=== PATIENT | male | born 1945 | race Caucasian/White ===

== ENCOUNTER 2016-07-12 15:34 | Inpatient (IN) | payer MEDICARE ==
[~2016-07-12] VITALS: Ht 188 cm; Wt 122.6 kg
[2016-07-12] VITALS (7 sets, daily range): BP systolic 109–136; BP diastolic 53–82; PULSE 66–85; RESP 17–28; O2SAT 89–99
[~2016-07-12 15:34] MED LIST: ACET-171 PO; ALBU18HF INH; BECL8.7A6 IH; CHOL200047 PO; DOCU-41 PO; FUR20 PO; GABA-502 PO; HYDR-3939 PO; IPRA3AMP IH; ISOS30TA4 PO; LEVO5TAB13 PO; MAGN400C PO; MULT-666 PO; NITR0.4T6 SL; OXYC5CAP4 PO; POLY17PO6 PO; POTA20LI2 PO; SPIR25TA PO; TRAM50TA2 PO; TRAZ-118 PO
[2016-07-12 16:43] LABS: BASOPHILS % (AUTO) 0.2 % (0-3); MONOCYTES % (AUTO) 9.7 % (4-12); Mean Corpuscular Hemoglobin 28.8 pg (27.0-35.0); Mean Corpuscular Volume 93.7 fL (81-100); Platelet Count 195 bil/L (150-400)
[2016-07-12 17:12] LABS: TROPONIN T < 0.010 ug/L (0.0-0.011)
--- NOTE | 2016-07-12 17:45 | DRSVH ---
PROCEDURE: X-RAY CHEST ONE VIEW, PORTABLE ([id number]) INDICATIONS: dyspnea TECHNIQUE: One view of the chest was acquired. COMPARISON: [facility], CR, XR CHEST 2VW, 03/19/2016, 6:50. FINDINGS: Surgical changes and devices: Cardiac pacer Lungs and pleura: No pleural effusions or pneumothorax. Lungs are clear. Elevation of the right he midiaphragm. Diffuse interstitial disease Mediastinum: Mediastinal contours appear normal. Heart size is normal. Bones and chest wall: No suspicious bony lesions. Overlying soft tissues appear unremarkable. IMPRESSION: Diffuse scarring/interstitial disease. No acute disease Dictated by: Jason Ann M.D. on 07/12/2016 at 17:42 Approved by: Jason Ann M.D. on 07/12/2016 at 17:44
--- NOTE | 2016-07-12 17:51 | ED.REPORT ---
HPI-Dyspnea / Wheezing Date of Service Jul 12, 2016 ED Provider: Hussain Russell MD 71 year old male with a history of CAD, chronic diastolic heart failure, COPD, hyperlipidemia, and HTN presents to the ER complaining of 4-5 months of worsening shortness of breath and lower extremity swelling, severely worsening over the past week. Associated symptom of headache. Patient denies chest pain, cough, rhinorrhea, fever and chills. Typically the patient uses a CPAP at night , but he is not on home O2. He was discharged from the hospital here three months ago after being treated for his diastolic heart failure. Nursing Notes Stated Complaint: SOB Chief Complaint: Respiratory Distress Nursing Notes Reviewed: Yes Allergies: Coded Allergies: [place] Pepper (Verified Allergy, Severe, Anaphylaxis, 07/12/16) Patient reports severe allergy to peppers. Contrast Media (Verified Allergy, Severe, 07/12/16) Quinolones (Verified Allergy, Severe, 07/12/16) cefazolin (Verified Allergy, Severe, convulsions, cardiac, 07/12/16) hydrocodone bitartrate (Verified Allergy, Severe, rash, 07/12/16) levofloxacin (Verified Allergy, Severe, cardiac and convulsions, 07/12/16) niacin (Verified Allergy, Severe, convulsions, 07/12/16) nitrofurantoin (Verified Allergy, Severe, Rash,Itching,throat swelling, ) Penicillins (Verified Allergy, Unknown, 07/12/16) hydrocodone (Verified Allergy, Unknown, 07/12/16) egg (Verified Adverse Reaction, Intermediate, Nausea,Vomiting, 07/12/16) milk (Verified Adverse Reaction, Intermediate, Nausea,Vomiting,Diarrhea, ) Uncoded Allergies: eggs (Allergy, Mild, vomiting, 07/27/12) Patient reports past severe reaction to eggs. RUBBER (Allergy, Unknown, 01/07/15) rubber (Adverse Reaction, Mild, Rash,Itching,, 05/29/12) Scheduled Albuterol Sulfate (Ventolin HFA Inhaler) 200 Puff/18 Gm Inhaler 2 PUFFS INH TID Beclomethasone Dipropionate (Qvar) 8.7 Gm Aer.w.adap 1 PUFF IH BID 40mcg strength Cholecalciferol (Vitamin D3) (Vitamin D3) 2,000 Unit Capsule 2,000 UNIT PO DAILY Furosemide (Furosemide) 20 Mg Tab 60 MG PO TID Gabapentin (Gabapentin) 300 Mg Capsule 300 MG PO TID Hydralazine (Hydralazine) 25 Mg Tablet 25 MG PO TIDWM Isosorbide MN ER (Isosorbide MN ER) 30 Mg Tab.er.24h 30 MG PO DAILY Levocetirizine Dihydrochloride (Levocetirizine Dihydrochloride) 5 Mg Tablet 5 MG PO HS Magnesium Oxide (Magnesium) 400 Mg Capsule 400 MG PO DAILY Metoprolol Succinate ER (Metoprolol Succinate ER) 100 Mg Tab.er.24h 100 MG PO DAILY Multivit-Min/FA/Lycopen/Lutein (Centrum Silver Men Tablet) 300 Mcg-600 Mcg-300 Mcg Tablet 1 EACH PO DAILY Potassium Chloride ER (Potassium Chloride ER) 20 Meq Tablet.er 40 MEQ PO BIDWM TAKE WITH FOOD Spironolactone (Aldactone) 25 Mg Tablet 25 MG PO DAILY Trazodone (Trazodone) 100 Mg Tablet 100 MG PO HS Scheduled PRN Acetaminophen (Tylenol Arthritis) 650 Mg Tablet.er 650 MG PO Q6H PRN PRN arthritis Docusate Sodium (Colace) 100 Mg Capsule 200 MG PO DAILY PRN PRN For Constipation Nitroglycerin SL (Nitroglycerin SL) 0.4 Mg Tab.subl 0.4 MG SL Q5MIN PRN PRN For Chest Pain Polyethylene Glycol 3350 (Miralax) 17 Gm Powd.pack 17 GM PO DAILY PRN PRN For Constipation Tramadol (Tramadol) 50 Mg Tablet 50 MG PO Q6H PRN PRN For Pain General Time Seen by MD: 17:49 Chief Complaint Shortness of breath Hx Obtained From: Patient Arrived By: Walk-in Sudden in Onset?: No Onset Occurred: 1 week ago Symptom Duration: Since onset Associated with: Reports: Leg swelling, Denies: Chest pain, Cough, Fever Context Related History: Reports: COPD, Congestive heart failure, Coronary artery disease Similar Sx Previous: Yes Past Medical History Past Medical History Notes: PCP: Dr. Nicole Certified Dialysis Technician: Dr. Sheffield, [facility] Past Medical History R fibular/posterior malleolar fracture - 12/2014, not healing well per patient, followed by Dr. Shearer H/o chainsaw injury to knee PAST MEDICAL HISTORY per old records 1. Coronary artery disease, status post myocardial infarction in 1984. 2. Chronic diastolic heart failure. 3. Atrial fibrillation, on chronic anticoagulation. 4. Hyperlipidemia. 5. Hypertension. 6. COPD. 7. 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 8. History of acute promyelocytic leukemia, in complete remission. 9. History of melanoma with removal on his right face. 10. 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 Scottie Dudley at [facility], and undergoing adjuvant radiation therapy with Dr. Yoni Butterfield. 11. Chronic hypokalemia, for which he is on spironolactone. 12. History of stroke. The patient reports some residual mainly right-sided weakness in the right upper extremity more than the right lower extremity, with residual right facial numbness and mild droop. 13. Chronic back pain with left sciatica. 14. History of diverticulitis requiring colectomy. 15. History of urinary retention. 16. History of previous esophageal stricture. Past Surgical History 1. Back surgery. 2. Right shoulder surgery. 3. Right knee surgery (details unclear - no hardware on plain films 04/10/15) 4. Multiple skin excisions from malignant melanoma on the right side of his face. 5. Cholecystectomy. 6. 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 7. Also, partial colectomy due to acute diverticulitis in the past. Family History Noncontributory per old records Smoking History Former Smoker Social History Alcohol Use: Denies alcohol use Drug Use: Denies drug use Other Social History: Local resident Ambulatory Status Independent Review of Systems Constitutional: Denies: Chills, Fever Ears / Nose / Throat: Denies: Nasal congestion Respiratory: Reports: Dyspnea on exertion, Shortness of breath, Denies: Non-productive cough Cardiovascular: Denies: Chest pain Musculoskeletal: Reports: Extremity swelling (Lower, bilateral), Denies: Back pain, Extremity pain, Neck pain Complete sys rev & neg: except as marked. Physical Exam Initial Vital Signs Vital Signs (First) Date Time Temp Pulse Resp B/P Pulse Ox O2 Delivery O2 Flow Rate FiO2 07/12/16 15:42 35.9 79 28 112/69 94 Nasal Cannula 2 Initial VS: Reviewed Head / Eyes: Atraumatic, Normocephalic Abdomen / GI: Soft, Non-tender, No guarding, No rebound, No distention Skin: Warm, Dry, No cyanosis Neurologic: Alert, Oriented, Nonfocal General/Constitutional: Awake, Alert, Well developed, Well nourished Neck: Atraumatic, Supple, Full range of motion, No swelling, Non-tender, No masses Respiratory / Chest: No chest tenderness, No chest wall deformity Bilateral crackles at the bases. Cardiovascular: Heart rate NL, Regular rhythm, Heart sounds NL, No murmurs Lower Ext Edema: Positive: Bilateral 2+ Interpretation & Diagnostics Lab Results Interpretation Result Diagram: 07/12/16 1630 07/12/16 1630 Test 07/12/16 16:30 07/12/16 17:46 White Blood Count 8.8th/mm3 (3.8-10.1) Red Blood Count 4.79mil/mm3 (4.40-5.80) Hemoglobin 13.8g/dL (13.8-17.2) Hematocrit 44.9% (41.0-50.0) Mean Corpuscular Volume 93.7fL (81-100) Mean Corpuscular Hemoglobin 28.8pg (27.0-35.0) Mean Corpuscular Hemoglobin Concent 30.7% (32.0-37.0) Red Cell Distribution Width 15.0% (12.3-15.4) Platelet Count 195bil/L (150-400) Neutrophils (%) (Auto) 77.0% (40-74) Lymphocytes (%) (Auto) 11.8% (14-46) Monocytes (%) (Auto) 9.7% (4-12) Eosinophils (%) (Auto) 1.0% (0-5) Basophils (%) (Auto) 0.2% (0-3) Prothrombin Time 10.8sec (8.1-12.5) Prothromb Time International Ratio 1.01ratio Sodium Level 138mEq/L (134-144) Potassium Level 5.4mEq/L (3.5-5.2) Chloride Level 98mEq/L (97-108) Carbon Dioxide Level 30mmol/L (18-29) Blood Urea Nitrogen 23mg/dL (8-27) Creatinine 1.22mg/dL (0.76-1.27) Estimat Glomerular Filtration Rate 62mL/min (>59) Glucose Level 109mg/dL (60-99) Calcium Level 8.8mg/dL (8.5-10.1) Total Bilirubin 0.6mg/dL (0.0-1.2) Aspartate Amino Transf (AST/SGOT) 23U/L (0-50) Alanine Aminotransferase (ALT/SGPT) 36U/L (0-44) Alkaline Phosphatase 58U/L (25-160) Troponin T < 0.010ug/L (0.0-0.011) Pro-B-Type Natriuretic Peptide 2888pg/mL (0-376) Total Protein 6.6g/dL (6.4-8.4) Albumin 4.1g/dL (3.4-5.0) Hold Krueger Top Tube Received (Received) Urine Color Yellow (YELLOW) Urine Appearance Hazy (CLEAR,HAZY) Urine pH 6.5 (5.0-8.0) Urine Specific [place] 1.010 (1.003-1.035) Urine Protein Negativemg/dL (NEG,TRACE) Urine Glucose (UA) Negativemg/dL (NEGATIVE) Urine Ketones Negativemg/dL (NEGATIVE) Urine Occult Blood Negative (NEGATIVE) Urine Nitrite Negative (NEGATIVE) Urine Bilirubin Negative (NEGATIVE) Urine Urobilinogen Normalmg/dL (NORMAL) Urine Leukocyte Esterase Negative (NEGATIVE) Urine RBC 0-2/hpf (0-2) Urine WBC 0-5/hpf (0-5) Urine Epithelial Cells None/hpf (NONE-MOD) Urine Crystals None seen (NONE SEEN) Urine Bacteria None/hpf (NONE-FEW) Urine Hyaline Casts None/lpf (NONE) Urine Granular Casts None seen (NONE SEEN) Urine Waxy Casts None seen (NONE SEEN) Urine Red Blood Cell Casts None seen (NONE SEEN) Urine White Blood Cell Casts None seen (NONE SEEN) Urine Mucus None seen (None Seen) Urine Trichomonas None seen (NONE SEEN) Urine Yeast None (NONE SEEN) Urinalysis Comment None Urine Culture Reflexed Not indicated ECG Interpretation ECG Interpretation: Atrial fibrillation, rate 64 T wave inversions in v2-v6, 2 and 3 No prior ECG available Time: 17:46 Interpreted by: ED physician X-Ray Chest Interpretation Chest Xray Interpretation: IMPRESSION: Diffuse scarring/interstitial disease. No acute disease Dictated by: Jason Ann M.D. on 07/12/2016 at 17:42 Approved by: Jason Ann M.D. on 07/12/2016 at 17:44 View: Portable, 1 view Interpretation / Wet Read by: Interpret - Radiologist Re-Eval/Medical Decision Med Decision/Clinical Course 71-year-old male history of diastolic heart failure, CAD, COPD, hypertension presenting with worsening shortness of breath over 4-5 months. He had his Lasix decreased one week ago and with acute worsening shortness of breath last week. He is not normally on oxygen. He is requiring 2 L oxygen here and satting low 90s. Patient requiring oxygen and will be admitted for IV diuresis. Given IV Lasix 60 mg. Admitted to hospitalist service for acute CHF exacerbation. Source of Hx: Old records Re-Evaluation/Progress : Time of Eval: 18:53 Re-Evaluation/Progress Note: Discussed lab and radiology results and need for admission. Patient is amenable to the plan. All other questions addressed. Consultation : Referral / Consult Name: Kd Ramirez MD Consulted With: Hospitalist Call Returned at: 19:08 Equipment Processer Storage: Agrees with eval, Agrees with plan, Accepts admit Counseled Regarding: Diagnosis, Lab results, Need for admission Discharge & Departure Impression: Primary Impression: Acute exacerbation of congestive heart failure Disposition: ADMITTED TO HOSPITAL Discharge Condition All VS Reviewed: Yes Condition: Stable Referrals: Broderick Hu MD (PCP) Scribe Attestation Portions of this note were transcribed by Elton Phillips. I, Dr. Russell, personally performed the history, physical exam and medical decision-making; I reviewed and confirmed the accuracy of the information in the transcribed note. Signed by: Verena Reyes, 07/12/2016 - 19:09 copies to: Broderick Hu MD, Ben M MD Jul 12, 2016 17:51 ELTON PHILLIPS Jul 12, 2016 17:52
[2016-07-12 18:33] LABS: APPEARANCE,URINE HAZY (CLEAR,HAZY); COLOR,URINE YELLOW (YELLOW); OCCULT BLOOD,URINE NEGATIVE (NEGATIVE); PH,URINE 6.5 (5.0-8.0); UROBILINOGEN,URINE NORMAL (NORMAL)
[2016-07-12] MEDS ORDERED: Furosemide 10 mg/mL 10 mL Inj IVPUSH ONE (19:00)
[2016-07-12] MEDS ORDERED: Ondansetron 2 mg/mL 2 mL Inj IVPUSH PRN (19:10)
[2016-07-12] MEDS ORDERED: Alum-Mag Hydrox-Simeth 30 mL Suspension PO PRN ×2 (19:10→19:30)
[2016-07-12] MEDS ORDERED: Polyethylene Glycol (PEG) 17 Gm Powder PO PRN (19:30)
[2016-07-12] MEDS ORDERED: Senna-Docusate 8.6-50 mg Tablet PO PRN (19:30)
[2016-07-12] MEDS ORDERED: ACET-2766 PO (19:35)
[2016-07-12] MEDS ORDERED: METO-274 PO (19:35)
[2016-07-12] MEDS ORDERED: POTA-62 PO (19:35)
[2016-07-12] MEDS ORDERED: MULT-1104 PO (19:41)
[2016-07-12 19:51] LABS: INR 1.01 ratio
[2016-07-12] MEDS ORDERED: Furosemide 10 mg/mL 4 mL Inj IVPUSH SCH (20:30)
[2016-07-12] MEDS ORDERED: Furosemide 10 mg/mL 4 mL Inj IVPUSH ONE (20:55)
--- NOTE | 2016-07-12 21:11 | ABG ---
DateTimeAnalyzed 21:04:00 -_ pH ____7.213 - 7.350 7.450 pCO2 ___83.8__ -mmHg 35.0 45.0 pO2 101 -mmHg 69.0 116 HCO3- ___32.5__ -mmol/L 22.0 26.0 ABE ____1.5__ -mmol/L -2.0 2.0 tHb ___15.5__ -g/dL O2Hb ___94.6__ -% COHb ____0.8__ -% MetHb ____0.8__ -% sO2 ___96.1__ -% 25.0 FIO2 __100.0__ -% Drawn By MM - Date/Time Notified____ 21:11:00 -_ Spontaneous_RR ___28.0__ -b/min Liter_Flow ___15.0__ -L/min Oxygen Device 1 NON RE-BRENDA - Notified By MM - Notified Whom DR FUIMAONO - B 751 -mmHg tO2 ___20.6__ -Vol% Ag test N/A -
[2016-07-12] MEDS ORDERED: MethylprednisoLONE Sodium Succinate 62.5 mg/mL 2 mL Inj IVPUSH ONE (21:50)
[2016-07-12 22:09] LABS: Magnesium 2.3 mg/dL (1.6-2.6)
[2016-07-13] VITALS (11 sets, daily range): BP systolic 88–106; BP diastolic 49–68; PULSE 65–76; RESP 12–27; O2SAT 93–98
[2016-07-13] MEDS: Sodium Chloride LOK Flush 10 mL Syringe IVFLUSH SCH ×3 (00:02→17:15)
--- NOTE | 2016-07-13 00:21 | PCM.HPMED ---
Subjective Date of Service Jul 12, 2016 Primary Provider: Admitting Physician: Primary Care Physician: Broderick Hu MD Attending Physician: Admit Status: From the Emergency Department, Full Admit, [facility] Telemetry Chief Complaint: Shortness of breathe History of Present Illness: 71 year old male with Coronary artery disease, chronic diastolic heart failure, COPD, hyperlipidemia, and Hypertension who presents to [facility] emergency department complaining of persistent shortness of breathe Duration has been 4-5 months of worsening shortness of breath and lower extremity swelling, severely worsening over the past week. Associated symptom include headache. Patient denies chest pain, cough, rhinorrhea, fever and chills. Typically the patient uses a CPAP at night. Previously on home O2. He reports compliance with medications. Patient was recently hospitalized 03/12-03/20 due to Diastolic heart failure with restrictive cardiomyopathy. Patient has pacemaker placed at that time. Case discussed with Dr Coltno Ahn, Patient given Lasix IV. Plan to admit for further diuretic therapy Review of Systems: Pertinent positives as noted in HPI. All other systems were reviewed and are negative Allergies Coded Allergies: [place] Pepper (Verified Allergy, Severe, Anaphylaxis, 07/12/16) Patient reports severe allergy to peppers. Contrast Media (Verified Allergy, Severe, 07/12/16) Quinolones (Verified Allergy, Severe, 07/12/16) cefazolin (Verified Allergy, Severe, convulsions, cardiac, 07/12/16) hydrocodone bitartrate (Verified Allergy, Severe, rash, 07/12/16) levofloxacin (Verified Allergy, Severe, cardiac and convulsions, 07/12/16) niacin (Verified Allergy, Severe, convulsions, 07/12/16) nitrofurantoin (Verified Allergy, Severe, Rash,Itching,throat swelling, ) Penicillins (Verified Allergy, Unknown, 07/12/16) hydrocodone (Verified Allergy, Unknown, 07/12/16) egg (Verified Adverse Reaction, Intermediate, Nausea,Vomiting, 07/12/16) milk (Verified Adverse Reaction, Intermediate, Nausea,Vomiting,Diarrhea, ) Uncoded Allergies: eggs (Allergy, Mild, vomiting, 07/27/12) Patient reports past severe reaction to eggs. RUBBER (Allergy, Unknown, 01/07/15) rubber (Adverse Reaction, Mild, Rash,Itching,, 05/29/12) Home Medications From [facility] [phone] 1945 04/15/2016 10:50 AM Page: 05/20 albuterol sulfate HFA 90 mcg/actuation Aerosol Inhaler inhale 2 puff by inhalation route every 4 - 6 hours as needed ergocalciferol (vitamin D2) 2,000 unit tablet Take 1 by mouth daily furosemide 80 mg tablet take 1 tablet by oral route 3 times every day gabapentin 300 mg capsule TAKE ONE CAPSULE BY MOUTH THREE TIMES DAILY ipratropium-albuterol 0.5 mg-3 mg(2.5 mg base)/3 mL nebulization soln inhale 3 milliliter by nebulization route 3 times every day as needed levocetirizine 5 mg tablet take 1 tablet by oral route every day in the evening for allergies magnesium oxide 400 mg tablet take one tablet by mouth once daily metoprolol tartrate 50 mg tablet take 1 tablet by oral route every day with meals for heart Multivitamin 50 Plus tablet nitroglycerin 0.[address] 1 tablet under tongue every 5 min for chest pain up to 3 doses, if persists, call 911 oxycodone 10 mg tablet take 1 tablet by ORAL route every 4 hours as needed for pain oxycodone 5 mg capsule take 1 capsule by oral route every 3 hours as needed for pain oxycodone 5 mg tablet take 1 tablet by oral route every 4 hours as needed potassium chloride 20 mEq/15 mL oral liquid take 30 milliliter by oral route 2 times every day diluted in one-half glass (120 ml) of cold water or juice Qvar 40 mcg/actuation Metered Aerosol oral inhaler inhale 1 puff by inhalation route 2 times every day spironolactone 50 mg tablet take 1 tablet by oral route every day tramadol 50 mg tablet take 1 tablet by oral route every 6 hours as needed trazodone 100 mg tablet take 1 tablet by mouth in the evening for sleep/mood Tylenol Extra Strength 500 mg tablet take 1-2 Tablet by oral route Q6H PRN give instead of oxycodone PMH 1. Coronary artery disease status post NC in . Cardiac cath in April 2012 which showed diffuse moderate coronary artery ectasia with slow flow in the left anterior descending artery and circumflex artery. Left ventricular ejection fraction 55%. Moderate pulmonary hypertension. 2. Chronic right hemidiaphragm elevation. 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 CT chest without contrast (September 10, 2013) a triangular-shaped density in the right lower lobe may represent atelectasis, consolidation or parenchymal scar. Trace right pleural effusion or pleural thickening. 3. Diastolic CHF, chronic. Echo, June 2014: Left ventricular ejection fraction 65% to 70% with severe left atrial enlargement and mild right atrial enlargement and mild mitral and tricuspid regurgitation. 4. Chronic atrial fibrillation on Coumadin. 5. Hyperlipidemia. 6. Hypertension. 7. Chronic respiratory failure requiring 2 L continuous home O2 due to COPD disease. 8. 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 9. History of melanoma with removal of lesion on the right face. 10. 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 Daniel Dudley at [facility] and adjuvant radiation therapy with Dr. Yoni Butterfield. 11. Chronic hypokalemia (for which she is on spironolactone). 12. History of stroke with right-sided hemiparesis, residual right facial numbness and mild droop. 13. Chronic back pain with left sciatica. 14. History of diverticulitis. 15. History of urinary retention. 16. History of previous esophageal stricture, endoscopy September 24, 2014: Normal esophagus without ulcers, erosions or mass lesions. No strictures or rings. Antral gastritis, biopsied. Fundal gland polyp removed by cold biopsy forceps. Normal duodenum. Pathology gastric biopsy: Reactive gastropathy. 17. GERD. 18. 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 19. Dysphagia. X-ray, barium swallow with videography: Mild laryngeal penetration. . Surgical History PAST SURGICAL HISTORY: 1. Right ear removal in 2013. 2. Esophageal reconstruction. 3. Back surgery. 4. Right shoulder surgery. 5. Right knee surgery. 6. Multiple skin excisions of basal cell carcinoma, right side of the face. 7. Cholecystectomy. 8. Right total auriculectomy due to invasive squamous cell carcinoma of the right auricle. 9. Partial colectomy due to acute diverticulitis. Family History father open heart surgery at 68-69 y/o, mother had cancer Social History Hx Alcohol Use: No Hx Substance Use: No Hx Tobacco Use: Yes Smoking Status: Former Smoker Living Arrangement: with Family Exam Vital Signs Vital Sign - Last Date Time Temp Pulse Resp B/P Pulse Ox O2 Delivery O2 Flow Rate FiO2 07/12/16 17:59 36.5 71 17 132/53 95 Nasal Cannula 4 Exam General: Alert, Oriented X3, Cooperative, Moderate respiratory distress on BIPAP Eyes: PERRLA, Scleral Anicteric Mouth: Mouth Normal, Mucous Membranes Moist/[place] Neck: Supple, no Thyromegaly, trachea central. Chest & Lungs: decreased breathe sounds with expiratory wheezing Cardiovascular: Normal S1, Normal S2, No Murmurs/Rubs/Gallops, Regular Rate/ Rhythm, (No JVD, no peripheral edema) Pulses: Radial (present and equal), Dorsalis Pedi (present and equal) Abdomen: Soft, Non-tender, Non-distended, Normoactive bowel tones. Musculoskeletal: Unremarkable. Normal range of motion, no swollen or erythematous joints Extremities: 3 + pitting leg edema, no cyanosis, no clubbing. Skin: No rashes. Warm and dry, no erythematous areas Neurological: Grossly neurologically intact, has generalized weakness, Normal Speech, Sensation Intact Lymphatic: Lymph nodes Cervical and Axillary not palpable. Lab and Diagnostics Labs Laboratory Tests Test 07/12/16 16:30 07/12/16 17:46 White Blood Count 8.8th/mm3 (3.8-10.1) Red Blood Count 4.79mil/mm3 (4.40-5.80) Hemoglobin 13.8g/dL (13.8-17.2) Hematocrit 44.9% (41.0-50.0) Mean Corpuscular Volume 93.7fL (81-100) Mean Corpuscular Hemoglobin 28.8pg (27.0-35.0) Mean Corpuscular Hemoglobin Concent 30.7% (32.0-37.0) Red Cell Distribution Width 15.0% (12.3-15.4) Platelet Count 195bil/L (150-400) Neutrophils (%) (Auto) 77.0% (40-74) Lymphocytes (%) (Auto) 11.8% (14-46) Monocytes (%) (Auto) 9.7% (4-12) Eosinophils (%) (Auto) 1.0% (0-5) Basophils (%) (Auto) 0.2% (0-3) Sodium Level 138mEq/L (134-144) Potassium Level 5.4mEq/L (3.5-5.2) Chloride Level 98mEq/L (97-108) Carbon Dioxide Level 30mmol/L (18-29) Blood Urea Nitrogen 23mg/dL (8-27) Creatinine 1.22mg/dL (0.76-1.27) Estimat Glomerular Filtration Rate 62mL/min (>59) Glucose Level 109mg/dL (60-99) Calcium Level 8.8mg/dL (8.5-10.1) Total Bilirubin 0.6mg/dL (0.0-1.2) Aspartate Amino Transf (AST/SGOT) 23U/L (0-50) Alanine Aminotransferase (ALT/SGPT) 36U/L (0-44) Alkaline Phosphatase 58U/L (25-160) Troponin T < 0.010ug/L (0.0-0.011) Pro-B-Type Natriuretic Peptide 2888pg/mL (0-376) Total Protein 6.6g/dL (6.4-8.4) Albumin 4.1g/dL (3.4-5.0) Hold Krueger Top Tube Received (Received) Urine Color Yellow (YELLOW) Urine Appearance Hazy (CLEAR,HAZY) Urine pH 6.5 (5.0-8.0) Urine Specific [place] 1.010 (1.003-1.035) Urine Protein Negativemg/dL (NEG,TRACE) Urine Glucose (UA) Negativemg/dL (NEGATIVE) Urine Ketones Negativemg/dL (NEGATIVE) Urine Occult Blood Negative (NEGATIVE) Urine Nitrite Negative (NEGATIVE) Urine Bilirubin Negative (NEGATIVE) Urine Urobilinogen Normalmg/dL (NORMAL) Urine Leukocyte Esterase Negative (NEGATIVE) Urine RBC 0-2/hpf (0-2) Urine WBC 0-5/hpf (0-5) Urine Epithelial Cells None/hpf (NONE-MOD) Urine Crystals None seen (NONE SEEN) Urine Bacteria None/hpf (NONE-FEW) Urine Hyaline Casts None/lpf (NONE) Urine Granular Casts None seen (NONE SEEN) Urine Waxy Casts None seen (NONE SEEN) Urine Red Blood Cell Casts None seen (NONE SEEN) Urine White Blood Cell Casts None seen (NONE SEEN) Urine Mucus None seen (None Seen) Urine Trichomonas None seen (NONE SEEN) Urine Yeast None (NONE SEEN) Urinalysis Comment None Urine Culture Reflexed Not indicated Result Diagram: 07/12/16 1630 07/12/16 1630 X-Rays, CTs and MRIs X-RAY CHEST ONE VIEW, PORTABLE 07/12 IMPRESSION: Diffuse scarring/interstitial disease. No acute disease Dictated by: Jason Ann M.D. on 07/12/2016 at 17:42 Approved by: Jason Ann M.D. on 07/12/2016 at 17:44 Assessment & Plan 71 year old male with Coronary artery disease, chronic diastolic heart failure, COPD, hyperlipidemia, and Hypertension who presents to [facility] emergency department complaining of persistent shortness of breathe 1. Acute on Chronic Hypoxic and Hypercapnic Respiratory Failure. Present on admission Etiology unclear but likely multifactorial with Acute Congestive heart failure but the hypercapnea could be due to COPD exacerbation. - continue ventilatory support with BIPAP - follow up with repeat ABG - treat underlying cause (see below) 2. Acute on chronic diastolic congestive heart failure exacerbation. Patient has Restrictive Cardiomyopathy. Noted increased leg edema and BNP 2888. History of Coronary disease and its important to rule out underlying ischemia as a cause for failure. No evidence of infection and also question compliance with both medications and low sodium diet. - continue Lasix 60 IV b.i.d. with strict ins and outs - holding Aldactone 25 mg daily due to mild hyper kalemia - Repeat echocardiography ordered. - Cardiology consultation tomorrow - CHF clinic referral 3. Possible COPD exacerbation. Present on admission Difficult to say this is a COPD excerbation due to lack of symptoms such as coughing and sputum changes - continuing QVar, DuoNeb treatments as needed - Solu-Medrol 125 mg IV, assess further need for steroids 4. Chronic Atrial fibrillation. Not currently on any anticoagulations - monitor on telemetry - continue Metoprolol for rate control - pacemaker may need to be interrogated 5. Hypertension Presumed stable - continue Metoprolol, Hydralazine and Imdur 6. Chronic pain syndrome on narcotics - continuing outpatient regimen of Oxycodone PRN - Acetaminophen as needed for mild pain/fever/headache - Bowel regimen as needed - Antiemetic as needed Patient admitted under inpatient status with expected length of stay > 2 midnights for severity of present symptoms, complexities of treatment plan and risk for adverse event . Resuscitation Status: CPR: Attempt Resuscitation Kd Ramirez MD Jul 12, 2016 19:33
--- NOTE | 2016-07-13 00:29 | NUR ---
Transfer/admit To floor from [facility] [place] [place] at 2100. PT sats were low requiring transfer to [facility]. Placed on bipap, and sats are currently 97%. Took off mask briefly and sats dropped to mid-80's on 6 liters oxymask. Alert and oriented, but unable to answer admit questions due to bipap. Information obtained from previous admission 3 months ago. Received ordered Lasix and has had 2100 clear yellow urine from Paul catheter so far.
--- NOTE | 2016-07-13 01:14 | NUR ---
Admit/Transfer Patient arrived to room 3004 at approximately 2027 via [facility] accompanied by ED staff. HEALTH RESEARCHER took VS. As soon as I entered the room at approximately 2054, the patient was in respiratory distress. An Oxymask was applied and O2 was raised from 4L to 6L. Patient still complained of not being able to breathe. O2 was turned up to 8L. Patients lips and nail beds were cyanotic. Rapid response was called. Patient was then transferred to [facility].
--- NOTE | 2016-07-13 05:00 | ABG ---
DateTimeAnalyzed 04:53:00 -_ pH ____7.343 - 7.350 7.450 pCO2 ___62.2__ -mmHg 35.0 45.0 pO2 283 -mmHg 69.0 116 HCO3- ___32.9__ -mmol/L 22.0 26.0 ABE ____5.6__ -mmol/L -2.0 2.0 tHb ___14.0__ -g/dL O2Hb ___97.8__ -% COHb ____0.7__ -% MetHb ____1.0__ -% sO2 ___99.5__ -% 25.0 FIO2 __100.0__ -% CPAP ___16.0__ -cmH2O PEEP ____6.0__ -cmH2O Set_RR ___20.0__ -b/min Drawn By MM - Date/Time Notified____ 04:59:00 -_ Spontaneous_RR ___23.0__ -b/min Oxygen Device 1 ____BIPAP - Notified By MM - Notified Whom RN - B 754 -mmHg tO2 ___19.9__ -Vol% Ag test N/A -
[2016-07-13] MEDS ORDERED: Furosemide 10 mg/mL 4 mL Inj IVPUSH SCH (06:00)
[2016-07-13] MEDS ORDERED: POTASSIUM CHLORIDE 40 MEQ PO SCH (08:00)
[2016-07-13] MEDS: MeTOProlol XL 50 mg ER24 Tablet PO SCH (10:17)
[2016-07-13] MEDS: Fluticasone 100 mCg Inhaler INHALATION SCH ×2 (10:18→19:35)
--- NOTE | 2016-07-13 10:46 | DRSVH ---
[facility] [address] [place] [address] Echocardiogram Report Name: SONNY JERNIGAN TStudy Date: 07/13/2016 Height: 76 in Hospital Exam Location: [facility] Weight: 285 lb Gender: Male BSA: 2.6 m2 : 1945 Age: 71 yrs BP: 101/68 mmHg Reason For Study: SHORTNESS OF BREATH Ordering Physician: HOSPITALIST GWENDOLYNerformed By: Daniel Navas Referring Physician: Sia Hu Interpretation Summary The left ventricle is normal in size. The ejection fraction is estimated to be 50-55%. There is apical hypokinesis. The right ventricular systolic pressure is estimated at 54 mmHg assuming a right atrial pressure of 15 mm Hg. Compared to the prior echo exam, there has been an increase in the severity of pulmonary hypertension. Procedure: A two-dimensional transthoracic echocardiogram with color flow and Doppler was performed. The study quality was technically difficult. Comparison is made with the echocardiogram of 10/09/15. A contrast injection of Definity was performed to improve assessment of LV function. The patient has a paced rhythm. Left Ventricle: The left ventricle is normal in size. There is normal left ventricular wall thickness. The ejection fraction is estimated to be 50-55%. There is apical hypokinesis. Right Ventricle: There is a pacemaker lead in the right ventricle. The right ventricle is mildly dilated. The right ventricular systolic function is grossly normal. Atria: The left atrium is severely dilated. The right atrium is mildly dilated. The interatrial septum is intact with no evidence for an atrial septal defect. Mitral Valve: The mitral valve is normal in structure and function. There is mild to moderate mitral regurgitation. Aortic Valve: The aortic valve is trileaflet. The aortic valve is slightly calcified. The aortic valve opens well. No aortic regurgitation is present. Tricuspid Valve: The tricuspid valve is normal in structure and function. There is mild to moderate tricuspid regurgitation. The right ventricular systolic pressure is estimated at 54 mmHg assuming a right atrial pressure of 15 mm Hg. Compared to the prior echo exam, there has been an increase in the severity of pulmonary hypertension. Pulmonic Valve: The pulmonic valve is normal in structure and function. There is trace pulmonic regurgitation. Great Vessels: The aortic root is normal size. The ascending aorta is mildly enlarged. The pulmonary artery is normal size. The IVC is dilated (diameter is greater than 2.1 cm) and it collapses less than 50% with a sniff. This suggests a high right atrial pressure of 15 mm Hg. Pericardium/ Pleura There is no pericardial effusion. There is no pleural effusion. MMode/2D Measurements & Calculations LVIDd: 5.5 cm RA long axis LVOT diam LVIDs: 3.8 cm LA A2 area: 39.9 cm FS: 30.6 % LA A4 area: 33.7 cm RA area Ao root diam EPSS: 0.67 cm LA length (vol): 8.6 cm IVSd: 1.4 cm LA vol: 133.2 ml : 25.8 cm Aortic Jxn LVPWd: 0.93 cm LA vol index RA vol: 96.2 ml RA asc Aorta : 37.3 mm2 Diam: 3.5 cm IVC diam: 2.8 cm LV álvarez. diameter/BSA LV sys. diameter/BSA RVD1 (basal) RVD2 (mid) (cm/m^2): 2.2 (cm/m^2): 1.5 : 3.6 cm Doppler Measurements & Calculations Ao V2 max: 138.6 cm/secMV E max miles MV E/A: 93.9 TR max miles Ao max P.7 mmHg : 93.9 cm/sec Med Peak E' Miles : 310.2 cm/sec Ao mean P.3 mmHg MV A max miles TR max PG LVOT Max Miles : 1.0 cm/sec E/E' med: 15.2 : 38.5 mmHg : 101.9 cm/sec PA V2 max : 79.1 cm/sec ROYCE(I,D): 3.4 cm PA mean PG sev ratio: 0.76 PA Accel Time : 0.11 sec MV dec time: 0.17 sec Ao V2 mean LV V1 max PG PA V2 mean : 99.4 cm/sec : 59.9 cm/sec Ao V2 VTI LV V1 VTI: 19.2 cmPA pr(Accel) : 24.1 mmHg ROYCE(V,D): 3.3 cm2 ROYCE indexed to BSA (cm^2/m^2): 1.3 Electronically signed by: Pranav Snow on Reading Physician:07/13/2016 10:45 AM
[2016-07-13] MEDS: Ondansetron 2 mg/mL 2 mL Inj IVPUSH PRN (12:57)
[2016-07-13] MEDS: Isosorbide Mononitrate 30 mg ER24 Tablet PO SCH (13:20)
--- NOTE | 2016-07-13 13:49 | PCM.PNMED ---
Subjective Date of Service Jul 13, 2016 Subjective 71 year old male with Coronary artery disease, chronic diastolic heart failure, COPD, hyperlipidemia, and Hypertension who presents to [facility] emergency department complaining of persistent shortness of breath. This morning, he continues to be short of breath and have leg edema. He has noticed it over the past few months but it has worsened in the past few days, which brought him to the emergency department. He does not have chest pain, cough or abdominal pain. Exam Vital Signs Vital Sign - Last Date Time Temp Pulse Resp B/P Pulse Ox O2 Delivery O2 Flow Rate FiO2 07/13/16 12:13 36.3 74 19 102/55 95 Nasal Cannula 5.50 07/13/16 05:04 60 Intake and Output 07/12/16 07/12/16 07/13/16 Cumulative From/Thru 15:00 23:00 07:00 07/12/16 15:42 - 07/13/16 05:00 Intake Total 0 ml 0 ml Output Total 2500 ml 2500 ml Balance -2500 ml -2500 ml Intake Oral 0 ml 0 ml Output Urine Total 2500 ml 2500 ml Bladder Scan Volume Amount 389 # Bowel Movements 0 0 Exam General: Alert, Oriented X3, Cooperative, no acute distress on nasal cannula Eyes: PERRLA, Scleral Anicteric Mouth: Mouth Normal, Mucous Membranes Moist/[place] Neck: Supple, no Thyromegaly, trachea central. Chest & Lungs: decreased breathe sounds with expiratory wheezing. no accessory muscle use. Cardiovascular: Normal S1, Normal S2, No Murmurs/Rubs/Gallops, Regular Rate/ Rhythm, (No JVD) Pulses: Radial (present and equal), Dorsalis Pedi (present and equal) Abdomen: Soft, Non-tender, Non-distended, Normoactive bowel tones. Musculoskeletal: Unremarkable. Normal range of motion, no swollen or erythematous joints Extremities: 1 + pitting leg edema, no cyanosis, no clubbing. Skin: No rashes. Warm and dry, no erythematous areas Neurological: Grossly neurologically intact, has generalized weakness, Normal Speech, Sensation Intact Lymphatic: Lymph nodes Cervical and Axillary not palpable. IVs and Medications Medications Reviewed: Medications were reviewed in detail Lab and Diagnostics Result Diagram: 07/12/16 1630 07/13/16 0330 X-Rays, CTs and MRIs X-RAY CHEST ONE VIEW, PORTABLE 07/12 IMPRESSION: Diffuse scarring/interstitial disease. No acute disease Dictated by: Jason Ann M.D. on 07/12/2016 at 17:42 Approved by: Jason Ann M.D. on 07/12/2016 at 17:44 Cardiac Echo Impressions Echocardiogram Report Interpretation Summary The left ventricle is normal in size. The ejection fraction is estimated to be 50-55%. There is apical hypokinesis. The right ventricular systolic pressure is estimated at 54 mmHg assuming a right atrial pressure of 15 mm Hg. Compared to the prior echo exam, there has been an increase in the severity of pulmonary hypertension. Electronically signed by: Pranav Snow on Reading Physician:07/13/2016 10:45 AM Assessment & Plan 71 year old male with Coronary artery disease, chronic diastolic heart failure, COPD, hyperlipidemia, and Hypertension who presents to [facility] emergency department complaining of persistent shortness of breathe 1. Acute on Chronic Hypoxic and Hypercapnic Respiratory Failure. Present on admission. Active. Etiology unclear but likely multifactorial with Acute Congestive heart failure but the hypercapnea could be due to COPD exacerbation. - Continue ventilatory support with BIPAP as needed - Treat underlying cause (see below) 2. Acute on chronic diastolic congestive heart failure exacerbation. Patient has Restrictive Cardiomyopathy. Noted increased leg edema and BNP 2888. History of Coronary disease and its important to rule out underlying ischemia as a cause for failure. No evidence of infection and also question compliance with both medications and low sodium diet. - Repeat echocardiography showed increase in severity of pulmonary hypertension. - Serial troponins negative - Holding Aldactone 25 mg daily due to mild hyperkalemia - Cardiology, Dr. Barnes, notified of patient's admission - CHF clinic referral - Discuss with social work about home health services for the patient as an outpatient to help with medication management - Decrease Lasix at 40 mg IV b.i.d. with strict ins and outs. Monitor daily weights - Heart healthy, low sodium diet 3. Possible COPD exacerbation. Present on admission. - Difficult to say this is a COPD excerbation due to lack of symptoms such as coughing and sputum changes. WBC within normal limits and pro-calcitonin 0.09 - Continuing QVar, DuoNeb treatments as needed - Solu-Medrol 125 mg IV once, assess further need for steroids - Hold antibiotics as it is unlikely that patient has an infection 4. Chronic Atrial fibrillation. Not currently on any anticoagulation. Rate controlled. - Monitor on telemetry - Continue Metoprolol for rate control 5. Hypertension, chronic. -Continue Metoprolol, Hydralazine and Imdur -Hold spironolactone as above 6. Chronic pain syndrome on narcotics - morphine PRN 7. Hyperkalemia, acute, present on admission. Improved. - Holding spironolactone and home potassium chloride - Continue to monitor with evening labs and tomorrow morning - Acetaminophen as needed for mild pain/fever/headache - Bowel regimen as needed - Antiemetic as needed Resuscitation Status: CPR: Attempt Resuscitation Attending Statement patient was seen and examined with Dr Watson on 07/13/16 ,I agree with the history,exam ,assessment and plan as outlined above France Watson DO Jul 13, 2016 13:49 Derrell Hale MD Jul 14, 2016 06:46 Derrell Hale MD Jul 14, 2016 06:46
[2016-07-13] MEDS: Furosemide 10 mg/mL 4 mL Inj IVPUSH SCH (17:15)
--- NOTE | 2016-07-13 18:29 | NUR ---
Imdur/O2 Pt scheduled to receive isosorbide mononitrate this am, dose unavailable at time of administration, spoke with pharmacy who reported that isosorbide mononitrate was out of stock, pharmacy called once they received their shipment of the medication, dose given at this time. Pt transitioned from BiPAP to 6L via nasal cannula by RT this am, Pt denied SOB at rest throughout shift with SPO2 sats in the mid 90s on 6L, Pt reported some SOB with exertion, Pt reported that breathing felt greatly improved from admit. Pt also reporting a headache, Pt unwilling to start weening O2 rate down yet, O2 humidification set up prior to shift change.
[2016-07-13] MEDS ORDERED: Benzocaine-Menthol Lozenge 2/Pkg PO PRN (18:50)
[2016-07-13 19:32] LABS: TROPONIN T < 0.010 ug/L (0.0-0.011)
[2016-07-13 19:42] LABS: Magnesium 2.2 mg/dL (1.6-2.6); Phosphorus 3.1 mg/dL (2.5-4.9)
--- NOTE | 2016-07-13 23:00 | NUR ---
Bipap, urine output and blood pressure. Patients blood pressure has trended down into the 80s/90s systolic. Maps have remained over 60. Patient is without complaint and vitals are stable otherwise. Paul catheter is draining to gravity with pale urine. Provider Weaver was informed about the patient change in blood pressure. Patient was placed on automatic blood pressure Q30 minutes and closely monitored throughout my shift. Patient was asystematic throughout this time. Patient was placed on bipap while sleeping and maintained O2 saturation in the low 90s. Bipap setting 16/6, back up rate 20 and 40% fio2.
[2016-07-14] VITALS (14 sets, daily range): BP systolic 83–145; BP diastolic 49–68; PULSE 60–89; RESP 12–24; O2SAT 89–97
[2016-07-14] MEDS: Sodium Chloride LOK Flush 10 mL Syringe IVFLUSH SCH ×3 (00:36→16:30)
[2016-07-14 04:04] LABS: BASOPHILS % (AUTO) 0 % (0-3); EOSINOPHILS % (AUTO) 0 % (0-5); MONOCYTES % (AUTO) 7.6 % (4-12); Mean Corpuscular Hemoglobin 29.4 pg (27.0-35.0); Mean Corpuscular Volume 94.5 fL (81-100); NEUTROPHILS % (AUTO) 85.5 % (40-74); Platelet Count 182 bil/L (150-400)
[2016-07-14] MEDS: Furosemide 10 mg/mL 4 mL Inj IVPUSH SCH (06:00)
[2016-07-14] MEDS: Fluticasone 100 mCg Inhaler INHALATION SCH ×2 (08:17→19:35)
[2016-07-14] MEDS: MeTOProlol XL 50 mg ER24 Tablet PO SCH (08:18)
[2016-07-14] MEDS: Isosorbide Mononitrate 30 mg ER24 Tablet PO SCH (08:18)
[2016-07-14] MEDS ORDERED: Furosemide 10 mg/mL 4 mL Inj IVPUSH SCH ×2 (08:30)
--- NOTE | 2016-07-14 09:11 | NUR ---
Social Work Note: Initial Assessment Data& Assessment: EMR reviewed. SW met with pt at bedside to discuss discharge planning, SW role explained and phone number provided on white board. True Jesus is a 71 year old male admitted on 07/12/2016 for CHF Exacerbation. Pt has Medicare insurance coverage and sees Broderick Hu MD for primary care. Pt lives in [place] in a mobile home and is independent at baseline with ADL's as well as driving. Pt has a cane, FWW, 4WW, oxygen and CPAP through [employer]. Pt typically wears 2L of 02 at baseline. Pt does not have LTC insurance or VA benefits. Pt has been at [facility] in the past and has had [facility] and PT. Pt would like to restart these services. Due to pt readmission for CHF exacerbation, pt could benefit from RN for vitals and PT for strengthening. SW spoke to Noam from [facility] for referral and provided access. SW also provided pt with Advance Directive/DPOA paperwork to review and complete when possible. Pt confirmed he has a friend who is planning on transporting him home at time of discharge. Pt denies any other needs at this time. No other discharge needs identified at this time. SW to continue to follow if any needs arise. Plan: Anticipated discharge home via POV with [facility] and RN to follow up. Pt confirmed he has a friend who is planning on transporting him home at time of discharge. Pt denies any other needs at this time. No other discharge needs identified at this time. SW to continue to follow if any needs arise. ADDISON Londono Addendum: 07/14/16 at 0918 by FERNANDO BARRERA Amended: Links added.
--- NOTE | 2016-07-14 13:31 | PCM.PNMED ---
Subjective Date of Service Jul 14, 2016 Subjective 71 year old male with Coronary artery disease, chronic diastolic heart failure, COPD, hyperlipidemia, and Hypertension who presented to [facility] emergency department complaining of persistent shortness of breath. Overnight: Telemetry showed that he was ventricular-paced in the 60s. This morning, he continues to have dyspnea intermittently. He is currently on 6 L of oxygen by nasal cannula and he states that his baseline at home is 2 L. He has a cough that is productive with dark sputum. He has chills. He does not have any abdominal pain. Exam Vital Signs Vital Sign - Last Date Time Temp Pulse Resp B/P Pulse Ox O2 Delivery O2 Flow Rate FiO2 07/14/16 10:59 66 07/14/16 10:18 Supplement Oxygen CPAP/BIPAP 07/14/16 08:15 36.9 24 103/67 89 6.00 07/14/16 04:50 40 Intake and Output 07/13/16 07/13/16 07/14/16 Cumulative From/Thru 15:00 23:00 07:00 07/12/16 15:42 - 07/14/16 04:52 Intake Total 1140 ml 400 ml 1540 ml Output Total 1850 ml 600 ml 4950 ml Balance -710 ml -200 ml -3410 ml Intake Oral 1140 ml 400 ml 1540 ml Output Urine Total 1850 ml 600 ml 4950 ml # Bowel Movements 1 0 1 Exam General: Alert, Oriented X3, Cooperative, no acute distress on nasal cannula Eyes: PERRLA, Scleral Anicteric Mouth: Mouth Normal, Mucous Membranes Moist/[place] Neck: Supple, no Thyromegaly, trachea central. Chest & Lungs: Decreased breathe sounds with mild end-expiratory wheezing. no accessory muscle use. Cardiovascular: Normal S1, Normal S2, No Murmurs/Rubs/Gallops, Regular Rate/ Rhythm, (No JVD) Pulses: Radial (present and equal), Dorsalis Pedi (present and equal) Abdomen: Soft, Non-tender, Non-distended, Normoactive bowel tones. Musculoskeletal: Unremarkable. Normal range of motion, no swollen or erythematous joints Extremities: No leg edema, no cyanosis, no clubbing. Skin: No rashes. Warm and dry, no erythematous areas Neurological: Grossly neurologically intact, has generalized weakness, Normal Speech, Sensation Intact Lymphatic: Lymph nodes Cervical and Axillary not palpable. IVs and Medications Medications Reviewed: Medications were reviewed in detail Lab and Diagnostics Result Diagram: 07/14/1624907/14/16249 X-Rays, CTs and MRIs X-RAY CHEST ONE VIEW, PORTABLE 07/12 IMPRESSION: Diffuse scarring/interstitial disease. No acute disease Dictated by: Jason Ann M.D. on 07/12/2016 at 17:42 Approved by: Jason Ann M.D. on 07/12/2016 at 17:44 Cardiac Echo Impressions Echocardiogram Report Interpretation Summary The left ventricle is normal in size. The ejection fraction is estimated to be 50-55%. There is apical hypokinesis. The right ventricular systolic pressure is estimated at 54 mmHg assuming a right atrial pressure of 15 mm Hg. Compared to the prior echo exam, there has been an increase in the severity of pulmonary hypertension. Electronically signed by: Pranav Snow on Reading Physician:07/13/2016 10:45 AM Assessment & Plan 71 year old male with Coronary artery disease, chronic diastolic heart failure, COPD, hyperlipidemia, and Hypertension who presents to [facility] emergency department complaining of persistent shortness of breathe #. Acute on Chronic Hypoxic and Hypercapnic Respiratory Failure. Present on admission. Active. Etiology unclear but likely multifactorial with Acute Congestive heart failure but the hypercapnea could be due to COPD exacerbation. - Continue ventilatory support with BIPAP as needed - Treat underlying cause (see below) #. Acute on chronic diastolic congestive heart failure exacerbation. Patient has Restrictive Cardiomyopathy. Noted increased leg edema and BNP 2888. History of Coronary disease and its important to rule out underlying ischemia as a cause for failure. No evidence of infection and also question compliance with both medications and low sodium diet. - Repeat echocardiography showed increase in severity of pulmonary hypertension. - Serial troponins negative - Holding Aldactone 25 mg daily due to mild hyperkalemia - Cardiology, Dr. Barnes, notified of patient's admission - CHF clinic referral - Discuss with social work about home health services for the patient as an outpatient to help with medication management - Decrease Lasix to 20 mg PO with strict ins and outs. Monitor daily weights - Heart healthy, low sodium diet # MAYA -cr 1.35 today ( was 1.04 yesterday) -due to overdiuresis -lowered lasix dose from 80 iv bid to 20 daily,uop 4.3 L/24h #. Possible COPD exacerbation. Present on admission. - Difficult to say this is a COPD excerbation due to lack of symptoms such as coughing and sputum changes. WBC within normal limits and pro-calcitonin 0.09 - Continuing QVar, DuoNeb treatments as needed - Solu-Medrol 125 mg IV once, assess further need for steroids - Hold antibiotics as it is unlikely that patient has an infection. Elevated WBC today is likely secondary to dose of steroids given earlier in hospital course. #. Chronic Atrial fibrillation. Not currently on any anticoagulation. Rate controlled. - Monitor on telemetry - Continue Metoprolol for rate control #. Hypertension, chronic. -Continue Metoprolol and Imdur -Hold spironolactone and hydralazine due to low BP -Continue to monitor #. Chronic pain syndrome on narcotics - morphine PRN #. Hyperkalemia, acute, present on admission. Improved. - Holding spironolactone and home potassium chloride - Continue to monitor tomorrow morning - Acetaminophen as needed for mild pain/fever/headache - Bowel regimen as needed - Antiemetic as needed - Melatonin as needed for sleep Disposition: Likely discharge with home health services including physical therapy and nursing in the next 1-2 days after improvement of fluid status and stable blood pressure. VTE Mechanical Devices: Intermittant Pneumatic CD Resuscitation Status: CPR: Attempt Resuscitation Attending Statement patient was seen and examined with Dr Watson on 07/14/16 ,I agree with the history,exam ,assessment and plan as outlined above France Watson DO Jul 14, 2016 11:49 Derrell Hale MD Jul 14, 2016 22:22
--- NOTE | 2016-07-14 13:47 | DRSVH ---
PROCEDURE: X-RAY CHEST ONE VIEW, PORTABLE ([id number]) INDICATIONS: dyspnea, hx of CHF TECHNIQUE: One view of the chest was acquired. COMPARISON: [facility], CR, XR CHEST 1VW (PORTABLE), 07/12/2016, 17:10. FINDINGS: Surgical changes and devices: Single chamber lead cardiac pacer redemonstrated. Lungs and pleura: No pleural effusions or pneumothorax. Lungs are clear and interstitium is promine nt. Chronic elevation right hemidiaphragm.. Mediastinum: Mediastinal contours appear normal. Heart size is normal. Bones and chest wall: No suspicious bony lesions. Overlying soft tissues appear unremarkable. IMPRESSION: Chronic interstitial densities and elevation right hemidiaphragm unchanged. Dictated by: Nakul Krishna RRA Interpreted: Gwen Murphy MD on 07/14/2016 at 13:46 Transcribed by: DANYELLE on 07/14/2016 at 13:47 Approved by: Gwen Murphy MD, PhD on 07/14/2016 at 17:18
--- NOTE | 2016-07-14 17:33 | NUR ---
O2/Activity The pt, per report, was on bipap last night. This morning, he came off bipap for breakfast, and went on 6L NC with sats holding between 88-92%. The pt's pressures continued to be low, and hydralizine was held - lasix given. aware. The pt frequently expressed interest in "going for a walk", yet on a transfer to the chair, I deemed him unable to ambulate for longer than a chair to bed transfer for safety.
[2016-07-15] VITALS (11 sets, daily range): BP systolic 84–118; BP diastolic 55–68; PULSE 68–78; RESP 12–26; O2SAT 91–95
[2016-07-15] MEDS: Sodium Chloride LOK Flush 10 mL Syringe IVFLUSH SCH ×3 (00:26→17:16)
[2016-07-15] MEDS ORDERED: Heparin 5,000 Unit/mL Inj IVPUSH PRN (05:50)
[2016-07-15 05:51] LABS: BASOPHILS % (AUTO) 0.1 % (0-3); EOSINOPHILS % (AUTO) 0.1 % (0-5); MONOCYTES % (AUTO) 12.4 % (4-12); Mean Corpuscular Hemoglobin 29.3 pg (27.0-35.0); Mean Corpuscular Volume 94.9 fL (81-100); NEUTROPHILS % (AUTO) 69.6 % (40-74); Platelet Count 243 bil/L (150-400)
[2016-07-15] MEDS ORDERED: Propofol 10,000 mCg/mL 100 mL Inj ONE (05:52)
[2016-07-15] MEDS ORDERED: fentaNYL 2,500 mCg/250 mL 2,500 MCG in IV Premix 1 EACH IV PRN (06:00)
[2016-07-15] MEDS ORDERED: fentaNYL-PF 50 mCg/mL 2 mL Inj IVPUSH PRN (06:00)
[2016-07-15] MEDS ORDERED: fentaNYL-PF 50 mCg/mL 2 mL Inj ONE (06:02)
[2016-07-15] MEDS ORDERED: levETIRAcetam Inj 1,000 MG in IV Premix 1 EACH IV ONE (06:20)
[2016-07-15] MEDS ORDERED: Succinylcholine Chloride 20 mg/mL 5 mL Inj IVPUSH ONE (06:20)
[2016-07-15 06:21] LABS: Magnesium 2.4 mg/dL (1.6-2.6)
--- NOTE | 2016-07-15 06:25 | ABG ---
DateTimeAnalyzed 06:17:00 -_ pH ____7.393 - 7.350 7.450 pCO2 ___60.0__ -mmHg 35.0 45.0 pO2 113 -mmHg 69.0 116 HCO3- ___35.8__ -mmol/L 22.0 26.0 ABE ____9.0__ -mmol/L -2.0 2.0 tHb ___13.5__ -g/dL O2Hb ___96.4__ -% COHb ____1.2__ -% MetHb ____0.8__ -% sO2 ___98.4__ -% 25.0 FIO2 ___80.0__ -% PRVC 16 - PEEP ____8.0__ -cmH2O Set_RR ___16.0__ -b/min Vt __600.0__ -L Drawn By MM - Date/Time Notified____ 06:24:00 -_ Spontaneous_RR ___16.0__ -b/min Oxygen Device 1 VENTILATOR - Notified By MM - Notified Whom DR DE LA HOUSSAYE -___ B 765 -mmHg tO2 ___18.5__ -Vol% Ag test N/A -
[2016-07-15] MEDS ORDERED: 0.9% Sodium Chloride 500 ML IV ONE (06:30)
--- NOTE | 2016-07-15 06:43 | PCM.PROC ---
Procedure Note Date of Service: Jul 15, 2016 Pre Procedure Diagnosis: Acute hypoxic respiratory failure Post Procedure Diagnosis: Acute hypoxic respiratory failure Procedure: Rapid sequence endotracheal intubation Provider and In Flight Refueling Manager: Provider: Dr. Elroy Rm Attending: Dr. Juan Ahn Indication for Procedure: Acute hypoxic respiratory failure Findings: Patient was found to be in respiratory distress, and subsequent hypoxic respiratory failure with concomitant clinical findings suggestive of acute seizure. Procedural Analgesia: 2 mg Ativan administered (for seizure) 1000 mg Keppra administered (for seizure) 20 mg etomidate administered 200 mg succinylcholine administered Procedure Details: Preparation was completed in usual fashion with medications and appropriate implements checked and readied. Patient was preoxygenated using a bag mask with 100% oxygen to a saturation max of 95%. At this time 2 mg of IV Ativan was administered and the patient was loaded with 1000 mg of Keppra IV (next, 20 mg of etomidate was administered. 200 mg of succinylcholine was administered. Fasciculations noted on the patient's brow and flaccidity recognized. Patient was positioned appropriately. Martinez blade used for visualization of the vocal cords and a #8 ET tube was placed with subsequent proof of placement by capnography, bilateral breath sounds, and subsequent stat chest x-ray which showed good tube placement. Patient was then bagged as he was transferred into the ICU and subsequently transitioned to mechanical ventilator. Specimen: Sputum sample by tube aspiration was collected and sent for culture. Post Procedure Plan: Ventilator and sedation management the ICU. Elroy Saunders DO Jul 15, 2016 06:43
--- NOTE | 2016-07-15 07:19 | NUR ---
Pt transferred form [facility] to ccu post code blue. During code, pt was intubated, no compression and appeared to be having seizure like activity. Ativan, etomodate and succs given for intubation. Pt's vitals and condition are stable. Pt remains sedated. Propofol at 25 mcg and fentanyl at 25 mcg. 500 ml NS bolus given. HR a-fib. OGT inserted without difficulty with little output.
--- NOTE | 2016-07-15 07:22 | NUR ---
Sleep, oxygen, activity and code blue. Patient rested well throughout my shift and got multiple hours of sleep. Patient remained on bipap throughout my shift and his O2 saturations were in the low 90s. Vitals stable otherwise. Patient required a two person assist to ambulate to the bathroom. Shortly after ambulating to the bathroom the patient became increasingly short of breath. Patient refused to go back on bipap and was placed on an oxymask at 10lpm. Lung sounds were very wheezy throughout. RT was called to administer a breathing treatment. Shortly after RT had entered the room the patient pulled his hands up towards his face and became very stiff. Slight upper extremity shaking was noted and the patient became cyanotic around the mouth. Code blue was called. RT started to ventilate the patient with a BVM and pulse checks was performed. Patient had a strong radial and femoral pulse. Fast patches placed on the patient. IV ativan was given to the patient and he stopped having seizure like activity very shortly after. 1 gram of Keppra hung at the same time as the patient was being intubated and transferred to the CCU. Report given to CCU RN and care transferred.
[2016-07-15] MEDS: 0.9% Sodium Chloride 1,000 ML IV SCH ×2 (07:27→17:57)
--- NOTE | 2016-07-15 07:38 | PCM.PNMED ---
Subjective Date of Service Jul 15, 2016 Subjective Patient has not "blue called early this morning. Per nursing patient got up to go to the bathroom and then became fairly dyspneic and tachypneic with a respiratory rate of 35. He then went back to bed and see him afterwards had a grand mal seizure noted. Does not have a seizure history. According to the nurse O2 sats dipped into the low to mid 80s. Patient was intubated by ER MDia at bedside. Exam Vital Signs Vital Sign - Last Date Time Temp Pulse Resp B/P Pulse Ox O2 Delivery O2 Flow Rate FiO2 07/15/16 06:46 75 50 07/15/16 04:33 22 95 07/15/16 02:43 37.0 99/64 BiPAP 07/14/16 12:29 6.00 Intake and Output 07/14/16 07/14/16 07/15/16 Cumulative From/Thru 15:00 23:00 07:00 07/12/16 15:42 - 07/15/16 04:58 Intake Total 550 ml 700 ml 2790 ml Output Total 1200 ml 650 ml 6800 ml Balance -650 ml 50 ml -4010 ml Intake Oral 550 ml 700 ml 2790 ml Output Urine Total 1200 ml 650 ml 6800 ml # Bowel Movements 0 1 2 Exam Constitutional: Elderly male who is currently sedated secondary to medications for intubation Head: Normocephalic atraumatic Chest: Diffuse rhonchi Cor: Regular rate and rhythm S1-S2 Abdomen: Soft nontender bowel sounds present Lab and Diagnostics Laboratory Tests 72 Hours Test 07/12/16 16:30 07/12/16 17:46 07/12/16 21:20 07/13/16 03:30 White Blood Count 8.8th/mm3 (3.8-10.1) Red Blood Count 4.79mil/mm3 (4.40-5.80) Hemoglobin 13.8g/dL (13.8-17.2) Hematocrit 44.9% (41.0-50.0) Mean Corpuscular Volume 93.7fL (81-100) Mean Corpuscular Hemoglobin 28.8pg (27.0-35.0) Mean Corpuscular Hemoglobin Concent 30.7% (32.0-37.0) Red Cell Distribution Width 15.0% (12.3-15.4) Platelet Count 195bil/L (150-400) Neutrophils (%) (Auto) 77.0% (40-74) Lymphocytes (%) (Auto) 11.8% (14-46) Monocytes (%) (Auto) 9.7% (4-12) Eosinophils (%) (Auto) 1.0% (0-5) Basophils (%) (Auto) 0.2% (0-3) Prothrombin Time 10.8sec (8.1-12.5) Prothromb Time International Ratio 1.01ratio Sodium Level 138mEq/L (134-144) 140mEq/L (134-144) Potassium Level 5.4mEq/L (3.5-5.2) 4.8mEq/L (3.5-5.2) Chloride Level 98mEq/L (97-108) 95mEq/L (97-108) Carbon Dioxide Level 30mmol/L (18-29) 30mmol/L (18-29) Blood Urea Nitrogen 23mg/dL (8-27) 23mg/dL (8-27) Creatinine 1.22mg/dL (0.76-1.27) 1.04mg/dL (0.76-1.27) Estimat Glomerular Filtration Rate 62mL/min (>59) 74mL/min (>59) Glucose Level 109mg/dL (60-99) 118mg/dL (60-99) Hemoglobin A1c 6.0% (4.8-5.6) Calcium Level 8.8mg/dL (8.5-10.1) 8.7mg/dL (8.5-10.1) Total Bilirubin 0.6mg/dL (0.0-1.2) Aspartate Amino Transf (AST/SGOT) 23U/L (0-50) Alanine Aminotransferase (ALT/SGPT) 36U/L (0-44) Alkaline Phosphatase 58U/L (25-160) Troponin T < 0.010ug/L (0.0-0.011) 0.010ug/L (0.0-0.011) Pro-B-Type Natriuretic Peptide 2888pg/mL (0-376) Total Protein 6.6g/dL (6.4-8.4) Albumin 4.1g/dL (3.4-5.0) Hold Krueger Top Tube Received (Received) Urine Color Yellow (YELLOW) Urine Appearance Hazy (CLEAR,HAZY) Urine pH 6.5 (5.0-8.0) Urine Specific Anderson 1.010 (1.003-1.035) Urine Protein Negativemg/dL (NEG,TRACE) Urine Glucose (UA) Negativemg/dL (NEGATIVE) Urine Ketones Negativemg/dL (NEGATIVE) Urine Occult Blood Negative (NEGATIVE) Urine Nitrite Negative (NEGATIVE) Urine Bilirubin Negative (NEGATIVE) Urine Urobilinogen Normalmg/dL (NORMAL) Urine Leukocyte Esterase Negative (NEGATIVE) Urine RBC 0-2/hpf (0-2) Urine WBC 0-5/hpf (0-5) Urine Epithelial Cells None/hpf (NONE-MOD) Urine Crystals None seen (NONE SEEN) Urine Bacteria None/hpf (NONE-FEW) Urine Hyaline Casts None/lpf (NONE) Urine Granular Casts None seen (NONE SEEN) Urine Waxy Casts None seen (NONE SEEN) Urine Red Blood Cell Casts None seen (NONE SEEN) Urine White Blood Cell Casts None seen (NONE SEEN) Urine Mucus None seen (None Seen) Urine Trichomonas None seen (NONE SEEN) Urine Yeast None (NONE SEEN) Urinalysis Comment None Urine Culture Reflexed Not indicated Magnesium Level 2.3mg/dL (1.6-2.6) Thyroid Stimulating Hormone (TSH) 2.140uIU/mL (0.450-4.500) 0.722uIU/mL (0.450-4.500) Procalcitonin 0.09ng/mL (0.00-0.08) Test 07/13/16 11:26 07/13/16 19:00 07/14/16 02:50 07/15/16 05:42 Troponin T < 0.010ug/L (0.0-0.011) < 0.010ug/L (0.0-0.011) 0.010ug/L (0.0-0.011) Sodium Level 136mEq/L (134-144) 139mEq/L (134-144) 137mEq/L (134-144) Potassium Level 4.3mEq/L (3.5-5.2) 4.3mEq/L (3.5-5.2) 4.7mEq/L (3.5-5.2) Chloride Level 92mEq/L (97-108) 95mEq/L (97-108) 95mEq/L (97-108) Carbon Dioxide Level 32mmol/L (18-29) 34mmol/L (18-29) 30mmol/L (18-29) Blood Urea Nitrogen 32mg/dL (8-27) 35mg/dL (8-27) 31mg/dL (8-27) Creatinine 1.32mg/dL (0.76-1.27) 1.35mg/dL (0.76-1.27) 1.18mg/dL (0.76-1.27) Estimat Glomerular Filtration Rate 57mL/min (>59) 55mL/min (>59) 64mL/min (>59) Glucose Level 176mg/dL (60-99) 126mg/dL (60-99) 188mg/dL (60-99) Calcium Level 8.4mg/dL (8.5-10.1) 8.4mg/dL (8.5-10.1) 9.0mg/dL (8.5-10.1) Phosphorus Level 3.1mg/dL (2.5-4.9) Magnesium Level 2.2mg/dL (1.6-2.6) 2.4mg/dL (1.6-2.6) White Blood Count 15.2th/mm3 (3.8-10.1) 21.3th/mm3 (3.8-10.1) Red Blood Count 4.39mil/mm3 (4.40-5.80) 5.26mil/mm3 (4.40-5.80) Hemoglobin 12.9g/dL (13.8-17.2) 15.4g/dL (13.8-17.2) Hematocrit 41.5% (41.0-50.0) 49.9% (41.0-50.0) Mean Corpuscular Volume 94.5fL (81-100) 94.9fL (81-100) Mean Corpuscular Hemoglobin 29.4pg (27.0-35.0) 29.3pg (27.0-35.0) Mean Corpuscular Hemoglobin Concent 31.1% (32.0-37.0) 30.9% (32.0-37.0) Red Cell Distribution Width 14.8% (12.3-15.4) 15.2% (12.3-15.4) Platelet Count 182bil/L (150-400) 243bil/L (150-400) Neutrophils (%) (Auto) 85.5% (40-74) 69.6% (40-74) Lymphocytes (%) (Auto) 6.6% (14-46) 17.3% (14-46) Monocytes (%) (Auto) 7.6% (4-12) 12.4% (4-12) Eosinophils (%) (Auto) 0% (0-5) 0.1% (0-5) Basophils (%) (Auto) 0% (0-3) 0.1% (0-3) Total Bilirubin 0.4mg/dL (0.0-1.2) 1.0mg/dL (0.0-1.2) Aspartate Amino Transf (AST/SGOT) 16U/L (0-50) 21U/L (0-50) Alanine Aminotransferase (ALT/SGPT) 24U/L (0-44) 37U/L (0-44) Alkaline Phosphatase 52U/L (25-160) 56U/L (25-160) Total Protein 6.0g/dL (6.4-8.4) 7.2g/dL (6.4-8.4) Albumin 3.4g/dL (3.4-5.0) 3.9g/dL (3.4-5.0) Procalcitonin 0.11ng/mL (0.00-0.08) 0.08ng/mL (0.00-0.08) D-Dimer 1.0mg/L (<0.50) Test 07/15/16 05:45 Lactic Acid Level 1.8mmol/L (0.4-2.0) Total Creatine Kinase 113U/L (21-232) Hold Krueger Top Tube Received (Received) Result Diagram: 07/15/1642 07/15/16541 X-Rays, CTs and MRIs X-RAY CHEST ONE VIEW, PORTABLE 07/12 IMPRESSION: Diffuse scarring/interstitial disease. No acute disease Dictated by: Jason Ann M.D. on 07/12/2016 at 17:42 Approved by: Jason Ann M.D. on 07/12/2016 at 17:44 Cardiac Echo Impressions Echocardiogram Report Interpretation Summary The left ventricle is normal in size. The ejection fraction is estimated to be 50-55%. There is apical hypokinesis. The right ventricular systolic pressure is estimated at 54 mmHg assuming a right atrial pressure of 15 mm Hg. Compared to the prior echo exam, there has been an increase in the severity of pulmonary hypertension. Electronically signed by: Pranav Snow on Reading Physician:07/13/2016 10:45 AM Assessment & Plan 71 year old male with Coronary artery disease, chronic diastolic heart failure, COPD, hyperlipidemia, and Hypertension who presents to [facility] emergency department complaining of persistent shortness of breathe #. Acute on Chronic Hypoxic and Hypercapnic Respiratory Failure. Present on admission. Active. Etiology unclear but likely multifactorial with Acute Congestive heart failure but the hypercapnea could be due to COPD exacerbation. - Continue ventilatory support with BIPAP as needed - Treat underlying cause (see below) #. Acute on chronic diastolic congestive heart failure exacerbation. Patient has Restrictive Cardiomyopathy. Noted increased leg edema and BNP 2888. History of Coronary disease and its important to rule out underlying ischemia as a cause for failure. No evidence of infection and also question compliance with both medications and low sodium diet. - Repeat echocardiography showed increase in severity of pulmonary hypertension. - Serial troponins negative - Holding Aldactone 25 mg daily due to mild hyperkalemia - Cardiology, Dr. Barnes, notified of patient's admission - CHF clinic referral - Discuss with social work about home health services for the patient as an outpatient to help with medication management - Decrease Lasix to 20 mg PO with strict ins and outs. Monitor daily weights - Heart healthy, low sodium diet # MAYA -cr 1.35 today ( was 1.04 yesterday) -due to overdiuresis -lowered lasix dose from 80 iv bid to 20 daily,uop 4.3 L/24h #. Possible COPD exacerbation. Present on admission. - Difficult to say this is a COPD excerbation due to lack of symptoms such as coughing and sputum changes. WBC within normal limits and pro-calcitonin 0.09 - Continuing QVar, DuoNeb treatments as needed - Solu-Medrol 125 mg IV once, assess further need for steroids - Hold antibiotics as it is unlikely that patient has an infection. Elevated WBC today is likely secondary to dose of steroids given earlier in hospital course. #. Chronic Atrial fibrillation. Not currently on any anticoagulation. Rate controlled. - Monitor on telemetry - Continue Metoprolol for rate control #. Hypertension, chronic. -Continue Metoprolol and Imdur -Hold spironolactone and hydralazine due to low BP -Continue to monitor #. Chronic pain syndrome on narcotics - morphine PRN #. Hyperkalemia, acute, present on admission. Improved. - Holding spironolactone and home potassium chloride - Continue to monitor tomorrow morning - Acetaminophen as needed for mild pain/fever/headache - Bowel regimen as needed - Antiemetic as needed - Melatonin as needed for sleep Disposition: Likely discharge with home health services including physical therapy and nursing in the next 1-2 days after improvement of fluid status and stable blood pressure. Acute critical care note: Assessment and plan: # Acute respiratory failure with hypoxia Patient currently is on BiPAP prior to this event and is now on ventilator Unclear why worsening respiratory status. Consider possible PE Cerebyx placed on IV heparin PE protocol drip after we get CT of head without contrast At admission it was unclear whether patient had diastolic dysfunction with congestive heart failure although chest x-ray was negative. Weather was COPD exacerbation but apparently exam was not necessarily consistent with this. I did start IV Solu-Medrol on this patient to cover for possible COPD exacerbation and continue with nebs As mentioned IV heparin PE protocol was started after CT of head without contrast Check serial troponins and EKG # New-onset seizure, acute, not present on admission Patient was loaded with IV Keppra and will continue maintenance dose IV Check CT of head without contrast May be secondary to hypoxia due to acute respiratory failure VTE Mechanical Devices: Intermittant Pneumatic CD Resuscitation Status: CPR: Attempt Resuscitation Time spent 30 minutes of critical care time Alice Beasley MD Jul 15, 2016 07:38
--- NOTE | 2016-07-15 08:20 | PROCED ---
[address] [address] PROCEDURE NOTE PATIENT: SONNY JERNIGAN : 1945 MR#: [id number] ADMIT: 07/12/2016 JOB ID: [id number] DATE OF SERVICE: 07/15/2016 POSTOPERATIVE DIAGNOSIS(ES): PREOPERATIVE DIAGNOSIS(ES): SURGEON: Juan Ahn MD for supervising resident, Elroy Saunders DO (RES) PROCEDURE: Endotracheal intubation. DESCRIPTION OF PROCEDURE: The patient was in respiratory failure in status epilepticus and I responded to a code blue. Resident Saunders was in attendance and I supervised his insertion of the tube. A #8 endotracheal tube was prepared with stylet and an induction dose of etomidate 20 mg with succinylcholine 200 mg was given after termination of the seizures with 2 mg of Ativan. Good relaxation was achieved and the resident was able to visualize the cords with a Patton blade and a #8 tube was inserted. It was confirmed immediately with end tidal CO2 and with auscultation. Chest x-ray pending. Tube was secured at 23 cm at the corner of the mouth. Care was turned back over to the medicine team. Keppra 1 g IV was ordered to follow the Ativan after termination of his initial seizure. I was present for all portions of the procedure, supervising the resident in the endotracheal intubation.
[2016-07-15] MEDS ORDERED: MethylprednisoLONE Sodium Succinate 62.5 mg/mL 2 mL Inj IVPUSH SCH (08:30)
[2016-07-15] MEDS: MeTOProlol XL 50 mg ER24 Tablet PO SCH (08:30)
[2016-07-15] MEDS: Furosemide 10 mg/mL 2 mL Inj IVPUSH SCH (08:30)
[2016-07-15] MEDS: Fluticasone 100 mCg Inhaler INHALATION SCH ×2 (08:30→20:30)
[2016-07-15] MEDS: Isosorbide Mononitrate 30 mg ER24 Tablet PO SCH (08:30)
[2016-07-15] MEDS ORDERED: Vancomycin Dose per Pharmacist XX SCH (09:10)
[2016-07-15] MEDS: Propofol Inj 1,000,000 MCG in IV Premix 1 EACH IV SCH ×4 (09:25→19:42)
[2016-07-15] MEDS: Chlorhexidine 0.12% 15 mL Oral Solution MT SCH ×4 (09:52→19:42)
[2016-07-15] MEDS: Meropenem Inj 2,000 MG in 0.9% Sodium Chloride 100 ML IV SCH ×2 (11:01→16:30)
[2016-07-15] MEDS ORDERED: 0.9% Sodium Chloride 500 ML ONE (11:17)
--- NOTE | 2016-07-15 12:26 | NUR ---
Social Work: Continued Discharge Planning D: Pt discussed in am rounds. Pt was transferred to CCU post Code Blue due to seizure. Pt is currently intubated and sedated. 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 M[employer] K[employer]N OPERATOR reviewed pt's EMR for possible POLST or Advanced directive. Pt does not have a completed advanced directive or POLST. Case management spoke with pt on 07/14/16 before intubation. Pt confirmed that he has not completed advanced directives and was provided information to review. As there is no POLST or Advanced Directive on file, pt is considered Full Code. Medical decision making would fall to pt's NOK however this person is not identified at this time. A: Pt who lives in [place], [facility]. P: Evolving; CCU team is continuing medical workup with head CT pending; M[employer] KIL[employer] OPERATOR to continue to follow and assist with dcp and social work needs as appropriate/requested. ADDISON Perez
--- NOTE | 2016-07-15 12:28 | PCM.CONPAL ---
Date of Service Jul 15, 2016 Date of Hospital Admission: Jul 12, 2016 at 20:11 Date of Palliative Consult: Jul 15, 2016 Requesting Provider: France Watson DO Reason Palliative Care Consult: Other (establish code status) Reason for Consultation Palliative Care received verbal order from Dr Sosa Watson 07/15/16 to assist with goals of care. Patient is a 71 year old man with CAD, diastolic heart failure, COPD. He presented with increasing shortness of breath and was admitted . A code blue was called this morning and patient was intubated. Per Dr Watson, patient lives alone and has help mostly from friends and neighbors. There is a POA document from 2012 that lists Claribel and Frank Justin ([phone] ) as POA. Per Dr Watson, the friends at bedside have said "he would not want all this done." Saravanan Alegre (friend--NOT brother, per neighbors at the [facility] who know Saravanan) [phone], Eleonora Oconnor (friend) [phone] Dr. Peña tried above contact number for the [employer]. They may have . Claribel Cavazos is at [phone]. Frank Justin is now at [phone]. Dr Peña left phone messages on each person's answering machine asking them to call CCU mid morning on 07/15/16. Hospital Unit @time of consult: Critical Care (room 2018) Pt History History of Present Illness 71 year old male with Coronary artery disease, chronic diastolic heart failure, COPD, hyperlipidemia, and Hypertension who presents to [facility] emergency department complaining of persistent shortness of breath. Was admitted to floor for treatment of CHF exacerbation and regular diuretic therapy started over last 2 days, then developed acute SOB early this morning and was emergently intubated around 530a.m. Tonic/clonic seizure activity witnessed shortly prior to intubation. Pt has no prior seizure history. It is not clear why he had this event. He was started on IV Keppra with plan for IV heparin after Head CT (w/o contrast). Today is Hospital Day 3. Hospital Course: On admission 07/13, he described 4-5 months of worsening shortness of breath and lower extremity swelling, with severe worsening over the past week RN CARDIOVASCULAR ICU. Associated symptom include headache. No associated chest pain , cough, rhinorrhea, fever or chills. At baseline, the patient uses a CPAP at night. Previously on home O2. He reports compliance with medications. Last hospitalized 03/12-03/20 due to Diastolic heart failure with restrictive cardiomyopathy. Patient has pacemaker placed at that time. Past Medical History Significant PMH Noted: 1. Coronary artery disease status post [place] in . Cardiac cath in April 2012 which showed diffuse moderate coronary artery ectasia with slow flow in the left anterior descending artery and circumflex artery. Left ventricular ejection fraction 55%. Moderate pulmonary hypertension. 2. Chronic right hemidiaphragm elevation. 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 CT chest without contrast (September 10, 2013) a triangular-shaped density in the right lower lobe may represent atelectasis, consolidation or parenchymal scar. Trace right pleural effusion or pleural thickening. 3. Diastolic CHF, chronic. Echo, June 2014: Left ventricular ejection fraction 65% to 70% with severe left atrial enlargement and mild right atrial enlargement and mild mitral and tricuspid regurgitation. 4. Chronic atrial fibrillation on Coumadin. 5. Hyperlipidemia. 6. Hypertension. 7. Chronic respiratory failure requiring 2 L continuous home O2 due to COPD disease. 8. 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 9. History of melanoma with removal of lesion on the right face. 10. 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 Daniel Dudley at [facility] and adjuvant radiation therapy with Dr. Yoni Butterfield. 11. Chronic hypokalemia (for which she is on spironolactone). 12. History of stroke with right-sided hemiparesis, residual right facial numbness and mild droop. 13. Chronic back pain with left sciatica. 14. History of diverticulitis. 15. History of urinary retention. 16. History of previous esophageal stricture, endoscopy September 24, 2014: Normal esophagus without ulcers, erosions or mass lesions. No strictures or rings. Antral gastritis, biopsied. Fundal gland polyp removed by cold biopsy forceps. Normal duodenum. Pathology gastric biopsy: Reactive gastropathy. 17. GERD. 18. 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 19. Dysphagia. X-ray, barium swallow with videography: Mild laryngeal penetration. . Surgical History 1. Right ear removal in 2013. 2. Esophageal reconstruction. 3. Back surgery. 4. Right shoulder surgery. 5. Right knee surgery. 6. Multiple skin excisions of basal cell carcinoma, right side of the face. 7. Cholecystectomy. 8. Right total auriculectomy due to invasive squamous cell carcinoma of the right auricle. 9. Partial colectomy due to acute diverticulitis. Family History father open heart surgery at 68-69 y/o, mother had cancer Social History xxx Medications Current Medications: Current Medications Morphine Sulfate 2 mg Q4H PRN IVPUSH Last administered on 07/13/16 17:16; Admin Dose 2 MG; Start 07/13/16 at 12:30 Furosemide 40 mg 0618 IVPUSH Last administered on 07/13/16 17:15; Admin Dose 40 MG; Start 07/13/16 at 18:00; Stop 07/14/16 at 07:32; Status DC Benzocaine/Menthol 1 lozenge Q2H PRN PO; Start 07/13/16 at 18:50 Melatonin 10 mg HS PRN PO Last administered on 07/14/16 19:38; Admin Dose 10 MG ; Start 07/13/16 at 22:50 Furosemide 40 mg DAILY IVPUSH; Start 07/14/16 at 08:30; Stop 07/14/16 at 08:30; Status DC Furosemide 20 mg DAILY IVPUSH Last administered on 07/14/16 08:18; Admin Dose 20 MG; Start 07/14/16 at 08:30; Stop 07/14/16 at 15:35; Status DC Furosemide 20 mg DAILY IVPUSH; Start 07/15/16 at 08:30 Heparin Sodium (Porcine) Per Protocol for a... PRN PRN IVPUSH; Start 07/15/16 at 05:50 Methylprednisolone Sodium Succinate 80 mg 80 mg Q8 IVPUSH Last administered on 11:00; Admin Dose 80 MG; Start 07/15/16 at 08:30 Levetriacetam 500 mg/Dextrose/Water 105 ml @ 420 mls/hr BID IV; Start 07/15/16 at 20:30 Propofol/Premix 100 ml @ 0 mls/hr Q0M IV Last administered on 07/15/16 09:25; Admin Dose 19.4 MLS/HR; Start 07/15/16 at 06:00 Fentanyl Citrate Dose 25-50 mcg IV every... Q15MIN PRN IVPUSH; Start 07/15/16 at 06:00 Fentanyl/Premix 250 ml @ 0 mls/hr Q0M PRN IV; Start 07/15/16 at 06:00 Midazolam HCl Bolus dose: 2 - 5 mg... Q1H PRN IV; Start 07/15/16 at 06:10 Chlorhexidine Gluconate 5 ml 5 ml Q4 MT Last administered on 07/15/16 09:52; Admin Dose 5 ML; Start 07/15/16 at 08:30 Sodium Chloride 1,000 ml @ 100 mls/hr Q10H IV Last administered on 07/15/16 07: 27; Admin Dose 100 MLS/HR; Start 07/15/16 at 06:30 Meropenem/Sodium Chloride 100 ml @ 33.333 mls/ hr Q8 IV Last administered on 11:01; Admin Dose 33.333 MLS/HR; Start 07/15/16 at 09:05 Pharmacy Consult 1 ea 1 ea DAILY XX; Start 07/15/16 at 09:10; Status UNV Famotidine/Sodium Chloride/Premix 50 ml @ 100 mls/hr Q12 IV; Start 07/15/16 at 20:30 Methylprednisolone Sodium Succinate 40 mg 40 mg Q6 IVPUSH; Start 07/15/16 at 14: 30; Status UNV Vancomycin/0.9 % Sod Chloride/ Premix 200 ml @ 133.333 mls/hr Q12 IV; Start 07/15/16 at 20:30 Scheduled Albuterol Sulfate (Ventolin HFA Inhaler) 200 Puff/18 Gm Inhaler 2 PUFFS INH TID Beclomethasone Dipropionate (Qvar) 8.7 Gm Aer.w.adap 1 PUFF IH BID 40mcg strength Cholecalciferol (Vitamin D3) (Vitamin D3) 2,000 Unit Capsule 2,000 UNIT PO DAILY Furosemide (Furosemide) 20 Mg Tab 60 MG PO TID Gabapentin (Gabapentin) 300 Mg Capsule 300 MG PO TID Hydralazine (Hydralazine) 25 Mg Tablet 25 MG PO TIDWM Isosorbide MN ER (Isosorbide MN ER) 30 Mg Tab.er.24h 30 MG PO DAILY Levocetirizine Dihydrochloride (Levocetirizine Dihydrochloride) 5 Mg Tablet 5 MG PO HS Magnesium Oxide (Magnesium) 400 Mg Capsule 400 MG PO DAILY Metoprolol Succinate ER (Metoprolol Succinate ER) 100 Mg Tab.er.24h 100 MG PO DAILY Multivit-Min/FA/Lycopen/Lutein (Centrum Silver Men Tablet) 300 Mcg-600 Mcg-300 Mcg Tablet 1 EACH PO DAILY Potassium Chloride ER (Potassium Chloride ER) 20 Meq Tablet.er 40 MEQ PO BIDWM TAKE WITH FOOD Spironolactone (Aldactone) 25 Mg Tablet 25 MG PO DAILY Trazodone (Trazodone) 100 Mg Tablet 100 MG PO HS Scheduled PRN Acetaminophen (Tylenol Arthritis) 650 Mg Tablet.er 650 MG PO Q6H PRN PRN arthritis Docusate Sodium (Colace) 100 Mg Capsule 200 MG PO DAILY PRN PRN For Constipation Nitroglycerin SL (Nitroglycerin SL) 0.4 Mg Tab.subl 0.4 MG SL Q5MIN PRN PRN For Chest Pain Polyethylene Glycol 3350 (Miralax) 17 Gm Powd.pack 17 GM PO DAILY PRN PRN For Constipation Tramadol (Tramadol) 50 Mg Tablet 50 MG PO Q6H PRN PRN For Pain Objective Findings Exam Vital Sign - Last Date Time Temp Pulse Resp B/P Pulse Ox O2 Delivery O2 Flow Rate FiO2 07/15/16 11:26 65 84/56 50 07/15/16 04:33 22 95 07/15/16 02:43 37.0 BiPAP 07/14/16 12:29 6.00 Intake and Output 07/14/16 07/14/16 07/15/16 Cumulative From/Thru 15:00 23:00 07:00 07/12/16 15:42 - 07/15/16 04:58 Intake Total 550 ml 700 ml 2790 ml Output Total 1200 ml 650 ml 6800 ml Balance -650 ml 50 ml -4010 ml Intake Oral 550 ml 700 ml 2790 ml Output Urine Total 1200 ml 650 ml 6800 ml # Bowel Movements 0 1 2 General: Chemically sedated, No acute distress HEENT: PERRLA (prosthetic right ear), Other (intubated) Heart: Normal S1, S2, No Murmurs/Rubs/Gallops Lungs: Wheezes (mild expiratory wheezes) Abdomen: Soft, Non Tender Neuro: Other (sedated/intubated) Extremities: Pulses Palpable x4, Warm Lab/Diagnostics 07/15/16 0542 X-RAY CHEST ONE VIEW, PORTABLE 07/12 IMPRESSION: Diffuse scarring/interstitial disease. No acute disease Dictated by: Jason Ann M.D. on 07/12/2016 at 17:42 Cardiac Echo Impressions The left ventricle is normal in size. The ejection fraction is estimated to be 50-55%. There is apical hypokinesis. The right ventricular systolic pressure is estimated at 54 mmHg assuming a right atrial pressure of 15 mm Hg. Compared to the prior echo exam, there has been an increase in the severity of pulmonary hypertension. Electronically signed by: Pranav Snow on Reading Physician:07/13/2016 10:45 AM Summary of palliative recommendations: Symptom management (Pain/other): DPOA/Advanced Directives/POLST: 1. no prior Advanced Directives or POLST, however, EMR states POAs are Carlyn Justin at [phone] according to information from a [address]. [address] Peña tried above contact number for the Charlene. They may be living apart (?). Claribel Cavazos is at [phone]. Frank Justin is now at [phone]. Dr Peña left phone messages on each person's answering machine asking them to call CCU. Messages left at 11a.m. on 07/15/16. Family/emotional support: unclear at this point, no family has been located. There may be a nephew per Efe, who heard Abel talk of a nephew that he wanted to will some of his belongings to, but we have no name or phone number yet. Simon is going to the main business office of the [facility] to see what next of kin Abel listed [place]. Spiritual support: pt's was working with a complex case manager Hussain at [phone]. The maintenance craftsman at [facility] Simon ([phone]) says that pt also attended [facility] recently. Problems: Patient Goals of Care Patient goals of care To be discussed with POAs as soon as one of them is located. Resuscitation Status Resuscitation Status: CPR: Attempt Resuscitation Time Spent Total time 70 minutes; >50% face to face with patient and/or family, providing counselling regarding plans and recommendations, and in care coordination with his/her medical teams. Time spent Total time 70 minutes; >50% face to face with patient and/or family, providing counselling regarding plans and recommendations, and in care coordination with his/her medical teams. Jie Peña MD Jul 15, 2016 12:28 I also spent an additional [ ] minutes counseling for advanced care planning with the patient/the patients family/the surrogate decision maker. Jie Peña MD Jul 15, 2016 12:28
--- NOTE | 2016-07-15 12:33 | NUR ---
Palliative Care Palliative Care received verbal order from Dr Sosa Watson 07/15/16 to assist with goals of care. Patient is a 71 year old man with CAD, diastolic heart failure, COPD. He presented with increasing shortness of breath and was admitted 07/12/16. A code blue was called this morning and patient was intubated. Per Dr Watson, patient lives alone and has help mostly from friends and neighbors. There is a POA document from 2013 that lists Claribel and Frank Justin ([phone]) as POA. Per Dr Watson, the friends at bedside have said "he would not want all this done." Saravanan Alegre (brother) [phone], Eleonora Oconnor (friend) [phone] Palliative Care to follow. Dr Peña is on her way to see patient now 1235. Lashonda Eastman
--- NOTE | 2016-07-15 12:45 | NUR ---
NUTRITION ASSESSMENT Assess: Pt is a 71 yo male admitted w/ worsening SOB, possible COPD exacerbation, and lower extremity swelling. Per MD, respiratory status continues to worsen. Pt was recently hospitalized in February for diastolic heart failure w/ pacemaker placed. Pt experienced grand mal seizure last night, was intubated at bedside, and transferred to CCU. Pt is also sedated. Pt had adequate PO intake x 2 days prior to intubation. Verbal orders from MD to start TF. PMHx: CAD w/ [place] in 1984, chronic right hemidiaphragm elevation, diastolic CHF, chronic A fib, HLD, HTN, chronic respiratory failure, history of acute promyelocytic leukemia, melanoma w/ removal of lesion on right face, invasive squamous cell carcinoma, chronic hypokalemia, CVA w/ right-sided hemiparesis, diverticulitis, esophageal stricture, GERD, dysphagia, right ear removal, esophageal reconstruction, right shoulder surgery, right knee surgery, multiple skin excisions of basal cell carcinoma, cholecystectomy, partial colectomy d/t acute diverticulitis LABS: Cl 95, CO2 30, BUN 31, Gluc 188 MEDICATIONS: Propofol @ 19.4 ml/hr providing 512 kcal DIET: NPO. Prior PO intake on Heart Healthy diet of 25-100% GI symptoms/stool: BMx1 (3/) Skin integrity: Hiram 18 ANTHROPOMETRICS: Current Wt: 129.4 kg BMI: 36.6 kg/m2 Admit Wt: 129.8 kg IBW: 86.4 kg Prior Admit Wt: 123.4 kg (wt gain likely fluid related) ESTIMATED NEEDS: Vent/BMI Calories: 4281-8023 kcal/day (20-22 kcal/kg BW) Protein: 130-155 g/day (1.5-1.8 g/kg IBW) Fluids: Approx 2276-2739 ml/day (1 ml/kcal/day) NUTRITION DIAGNOSIS: 1) Inadequate oral intake related to inability to consume sufficient energy as evidenced by current vent/NPO status. 2) Increased nutrient needs related to difficulty breathing as evidenced by worsening respiratory status and possible COPD exacerbation. INTERVENTION: 1) Start TF of Pulmocare at 10 ml/hr. If tolerating, begin advancing TF by 10 ml q 6 hrs to goal rate of 70 ml/hr to provide 2822 calories (2310 formula + 512 propofol) and 96g protein, meeting 100% of calorie needs and 74% of protein needs. 2) Once tolerated, recommend adding one packet of Prosource TID to increase protein intake to 129g, meeting 99% of protein needs. 3) Adjust TF rate daily based on propofol rate. MONITOR/EVALUATE: TF start/yajaira/adv, labs, GI, wt, nutrition status, POC. Will continue to monitor per high nutrition risk guidelines. Addendum: 07/15/16 at [address] Student documentation reviewed. TF not given as pt has milk allergy. No TF's on hospital formulary are suitable for a milk allergy and alternate TF will need to be ordered and may take a few days. Nutrition plan on hold at this time. Ollie Altamirano MS, JOSE ANGEL, DIANEN Addendum: 07/15/16 at [address] MD aware of milk allergy but would like to proceed with hanging the TF. Will monitor for tolerance. RN to start TF per orders in pt's chart and as noted above.
--- NOTE | 2016-07-15 13:36 | PCM.PROC ---
Procedure Note Date of Service: Jul 15, 2016 Pre Procedure Diagnosis: Acute on Chronic Hypoxic and Hypercapnic Respiratory Failure Post Procedure Diagnosis: Acute on Chronic Hypoxic and Hypercapnic Respiratory Failure Procedure: The patient was placed in a dependent position appropriate for central line placement based on the vein to be cannulated. The patients right neck was prepped and draped in sterile fashion. Local anesthesia was not required as the patient was sedated and intubated. A triple lumen Cordis catheter was introduced into the the internal jugular using the Seldinger technique and under ultrasound guidance. The catheter was threaded smoothly over the guide wire and appropriate blood return was obtained. Each lumen of the catheter was evacuated of air and flushed with sterile saline. The catheter was then secured in place with a dressing and sterile dressing applied. Perfusion to the extremity distal to the point of catheter insertion was checked and found to be adequate. Dr. Hale was present for the entire procedure. Provider and Elevator Repairer Helper: Provider: Dr. Donis Judd Attending: Dr. Derrell Hale Attending Statement i supervised this procedure on 07/15/16 Donis Judd Jul 15, 2016 13:36 Derrell Hale MD Jul 16, 2016 06:55
[2016-07-15] MEDS ORDERED: MethylprednisoLONE Sodium Succinate 40 mg/mL Inj IVPUSH SCH (14:30)
--- NOTE | 2016-07-15 14:31 | PCM.PNMED ---
Subjective Date of Service Jul 15, 2016 Subjective 71 year old male with Coronary artery disease, chronic diastolic heart failure, COPD, hyperlipidemia, and Hypertension who presented to [facility] emergency department complaining of persistent shortness of breath. Overnight: He had tachypnea and wheezing then his oxygen saturation dropped so a code blue was called. He was then bag masked and his oxygen saturation came up to 94%. He had a pulse the entire time. His arms then flexed and he was unresponsive. He appeared to have a grand mal seizure and was given a bolus of Valium and Keppra. He then underwent rapid sequence intubation for airway protection. He was started on a fentanyl and propofol drip for sedation. This morning, he is intubated and sedated. Exam Vital Signs Vital Sign - Last Date Time Temp Pulse Resp B/P Pulse Ox O2 Delivery O2 Flow Rate FiO2 07/15/16 11:26 65 84/56 50 07/15/16 09:00 Ventilator 07/15/16 09:00 36.9 16 94 07/14/16 12:29 6.00 Intake and Output 07/14/16 07/14/16 07/15/16 Cumulative From/Thru 15:00 23:00 07:00 07/12/16 15:42 - 07/15/16 04:58 Intake Total 550 ml 700 ml 2790 ml Output Total 1200 ml 650 ml 6800 ml Balance -650 ml 50 ml -4010 ml Intake Oral 550 ml 700 ml 2790 ml Output Urine Total 1200 ml 650 ml 6800 ml # Bowel Movements 0 1 2 Exam General: Intubated and sedated. Eyes: PERRLA, Scleral Anicteric Mouth: Mouth Normal, Mucous Membranes Moist/[place] Neck: Supple, no Thyromegaly, trachea central. Chest & Lungs: Decreased breathe sounds with mild end-expiratory wheezing. Thick, blood-tinged secretions from suction. Cardiovascular: Normal S1, Normal S2, No Murmurs/Rubs/Gallops, Regular Rate/ Rhythm, (No JVD) Pulses: Radial (present and equal), Dorsalis Pedi (present and equal) Abdomen: Soft, Non-tender, Non-distended, Normoactive bowel tones. Musculoskeletal: Unremarkable. Normal range of motion, no swollen or erythematous joints Extremities: No leg edema, no cyanosis, no clubbing. Skin: No rashes. Warm and dry, no erythematous areas Neurological: Responds to painful stimuli with movement. Lymphatic: Lymph nodes Cervical and Axillary not palpable. IVs and Medications Medications Reviewed: Medications were reviewed in detail Lab and Diagnostics Result Diagram: 07/15/1654107/15/16541 X-Rays, CTs and MRIs X-RAY CHEST ONE VIEW, PORTABLE 07/12 IMPRESSION: Diffuse scarring/interstitial disease. No acute disease Dictated by: Jason Ann M.D. on 07/12/2016 at 17:42 Approved by: Jason Ann M.D. on 07/12/2016 at 17:44 Cardiac Echo Impressions Echocardiogram Report Interpretation Summary The left ventricle is normal in size. The ejection fraction is estimated to be 50-55%. There is apical hypokinesis. The right ventricular systolic pressure is estimated at 54 mmHg assuming a right atrial pressure of 15 mm Hg. Compared to the prior echo exam, there has been an increase in the severity of pulmonary hypertension. Electronically signed by: Pranav Snow on Reading Physician:07/13/2016 10:45 AM Assessment & Plan 71 year old male with Coronary artery disease, chronic diastolic heart failure, COPD, hyperlipidemia, and Hypertension who presents to [facility] emergency department complaining of persistent shortness of breathe #. Acute on Chronic Hypoxic and Hypercapnic Respiratory Failure requiring vent support. Present on admission. Active. Etiology unclear but likely multifactorial with Acute Congestive heart failure but the hypercapnea could be due to COPD exacerbation or pulmonary embolism. - Patient is currently intubated and sedated with ventilator support. He is on a propofol and fentanyl drip. - CT angiogram PE protocol after patient receives per treatment protocol for contrast media allergy. Bilateral US to look for a DVT today while CT scan is pending. - Patient started on heparin drip PE/DVT protocol #. Seizure activity, acute. - Possibly secondary to hypoxia. He does not have an underlying seizure disorder. Lactic acid and CK within normal limits. - CT brain without contrast showed no intracranial hemorrhage - Keppra 1000 mg BID - EEG today #. Acute on chronic diastolic congestive heart failure exacerbation. Patient has Restrictive Cardiomyopathy. Noted increased leg edema and BNP 2888. History of Coronary disease and its important to rule out underlying ischemia as a cause for failure. No evidence of infection and also question compliance with both medications and low sodium diet. - Repeat echocardiography showed increase in severity of pulmonary hypertension. - Serial troponins negative - Holding Aldactone 25 mg daily due to mild hyperkalemia - CHF clinic referral - Hold furosemide and diuretics for now as patient was mildly hypotensive this morning #. SIRS, acute. - Met criteria with respiratory rate 26 and WBC 15.2 - No clearly identified infection at this time. Chest x-ray is not suspicious for a pulmonary source but has thick sputum tinged with blood through suction this morning. - Started on broad spectrum meropenem and vancomycin due to patient's medication allergies # MAYA, improving. -Cr 1.18 today -Due to overdiuresis -IV normal saline at 100 ml/h -Hold diuresis as above #. Possible COPD exacerbation. Present on admission. - Difficult to say this is a COPD excerbation but patient now has sputum. WBC within normal limits originally but now elevated at 21.3 and pro-calcitonin 0.08 this morning - Continuing QVar, DuoNeb treatments as needed - Solu-Medrol 125 mg IV once in the ED and restarted this morning after intubation #. Chronic Atrial fibrillation. Was not on any anticoagulation. Rate controlled. - Monitor on telemetry - Hold Metoprolol for now #. Hypertension, chronic. -Hold Metoprolol and Imdur -Hold spironolactone and hydralazine due to low BP -Continue to monitor #. Chronic pain syndrome on narcotics - Currently, on fentanyl for intubation. #. Hyperkalemia, acute, present on admission. Improved. - Holding spironolactone and home potassium chloride - Continue to monitor Disposition: ICU on ventilator. VTE Mechanical Devices: Intermittant Pneumatic CD Resuscitation Status: CPR: Attempt Resuscitation Attending Statement The patient was seen and examined together with Dr. Watson on 07/15/2016 and I agree with the history, exam and plan as outlined in the note above. France Watson DO Jul 15, 2016 14:20 Derrell Hale MD Jul 15, 2016 18:49 exacerbation but apparently exam was not necessarily consistent with this. I did start IV Solu-Medrol on this patient to cover for possible COPD exacerbation and continue with nebs As mentioned IV heparin PE protocol was started after CT of head without contrast Check serial troponins and EKG # New-onset seizure, acute, not present on admission Patient was loaded with IV Keppra and will continue maintenance dose IV Check CT of head without contrast May be secondary to hypoxia due to acute respiratory failure VTE Mechanical Devices: Intermittant Pneumatic CD Resuscitation Status: CPR: Attempt Resuscitation France Watson DO Jul 15, 2016 14:20
--- NOTE | 2016-07-15 14:42 | DRSVH ---
PROCEDURE: X-RAY CHEST ONE VIEW, PORTABLE ([id number]) INDICATIONS: line placement TECHNIQUE: One view of the chest was acquired. COMPARISON: [facility], CR, XR CHEST 1VW (PORTABLE), 07/15/2016, 5:44. FINDINGS: Surgical changes and devices: Right IJ CVL is in place tip projected over the lower SVC. Stable posi tion the ETT and nasogastric tube. Single lead cardiac pacemaker. Temporary transcutaneous pacer le ad projected over the mid heart. Lungs and pleura: No pleural effusions or pneumothorax. Diffuse interstitial opacities redemonstrat ed in elevation of the right hemidiaphragm. Mediastinum: Mediastinal contours appear normal. Heart size is normal. Bones and chest wall: No suspicious bony lesions. Overlying soft tissues appear unremarkable. IMPRESSION: 1. Support lines and tubes as above. 2. Elevation right hemidiaphragm and mild interstitial opacity likely related to edema. Dictated by: Nakul Krishna RR Interpreted: Gwen Murphy MD on 07/15/2016 at 14:40 Transcribed by: DANYELLE on 07/15/2016 at 14:42 Approved by: Gwen Murphy MD, PhD on 07/15/2016 at 16:59
--- NOTE | 2016-07-15 14:46 | PCM.PROC ---
Procedure Note Date of Service: Jul 15, 2016 Pre Procedure Diagnosis: Acute on Chronic Hypoxic and Hypercapnic Respiratory Failure Post Procedure Diagnosis: Acute on Chronic Hypoxic and Hypercapnic Respiratory Failure Procedure: The patients right wrist was prepped and draped in sterile fashion. Local anesthesia was not required as the patient was sedated and intubated. . An arterial line was introduced into the radial artery. The catheter was threaded over the guide wire and the needle was removed with appropriate pulsatile blood return. The catheter was secured to the skin and a sterile dressing applied. Perfusion to the extremity distal to the point of catheter insertion was checked and found to be adequate. Dr. Hale was present for the entire procedure. Provider and Bale Stacker: Provider: Dr. Donis Judd Attending: Dr. Derrell Hale Attending Statement I was present during this procedure and supervised Donis Stone Jul 15, 2016 14:46 Derrell Hale MD Jul 15, 2016 15:36
[2016-07-15] MEDS: Heparin 25K Unit/500mL 0.45 NS 25,000 UNIT in IV Premix 1 EACH IV SCH (15:01)
--- NOTE | 2016-07-15 15:29 | PCM.CHPMED ---
Subjective Date of Service: Jul 15, 2016 Primary Physician: Admitting Physician: Kd Ramirez MD Primary Care Physician: Broderick Hu MD Attending Physician: Kd Ramirez MD Chief Complaint: Chief Complaint: SOB History of Present Illness: ICU/pulmonary consultation note 71-year-old gentleman with history of CAD, chronic diastolic heart failure, COPD , and hypertension who presented to the emergency department on July 12 due to 4-5 months of worsening shortness of breath with lower extremity swelling, that was acutely worsening over the past week. Patient at that time denies any chest pain, cough, fevers or chills. His question as to whether the patient is compliant with his home medications. After admission the patient was treated for a CHF exacerbation and hypoxic and hypercarbic respiratory failure secondary to COPD with exacerbation. This morning CODE BLUE was called after the patient became dyspneic and tachypneic with O2 saturations dropped into the mid 80s after using the restroom. Patient underwent a grand mal seizure per nursing and was intubated by the night resident. Patient was moved to the CCU and was post ictal. This morning central venous access was obtained and arterial line was placed. Patient is able to maintain his blood pressure but continues to have questionable seizure activity. CTA was ordered but patient has a contrast allergy and is undergoing pre-contrast treatment. EEG was also ordered. Review of Systems: Review of systems unobtainable due to patient being unconscious PMH Past Medical History 1. Coronary artery disease status post ND in . Cardiac cath in April 2012 which showed diffuse moderate coronary artery ectasia with slow flow in the left anterior descending artery and circumflex artery. Left ventricular ejection fraction 55%. Moderate pulmonary hypertension. 2. Chronic right hemidiaphragm elevation. 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 CT chest without contrast (September 10, 2013) a triangular-shaped density in the right lower lobe may represent atelectasis, consolidation or parenchymal scar. Trace right pleural effusion or pleural thickening. 3. Diastolic CHF, chronic. Echo, June 2014: Left ventricular ejection fraction 65% to 70% with severe left atrial enlargement and mild right atrial enlargement and mild mitral and tricuspid regurgitation. 4. Chronic atrial fibrillation on Coumadin. 5. Hyperlipidemia. 6. Hypertension. 7. Chronic respiratory failure requiring 2 L continuous home O2 due to COPD disease. 8. 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 9. History of melanoma with removal of lesion on the right face. 10. 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 Daniel Dudley at [facility] and adjuvant radiation therapy with Dr. Yoni Butterfield. 11. Chronic hypokalemia (for which she is on spironolactone). 12. History of stroke with right-sided hemiparesis, residual right facial numbness and mild droop. 13. Chronic back pain with left sciatica. 14. History of diverticulitis. 15. History of urinary retention. 16. History of previous esophageal stricture, endoscopy September 24, 2014: Normal esophagus without ulcers, erosions or mass lesions. No strictures or rings. Antral gastritis, biopsied. Fundal gland polyp removed by cold biopsy forceps. Normal duodenum. Pathology gastric biopsy: Reactive gastropathy. 17. GERD. 18. 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 19. Dysphagia. X-ray, barium swallow with videography: Mild laryngeal penetration. Hx Any Other Health Problems?: NoHx Diabetes: NoBedside Blood Glucose: 109 Surgical History 1. Right ear removal in 2013. 2. Esophageal reconstruction. 3. Back surgery. 4. Right shoulder surgery. 5. Right knee surgery. 6. Multiple skin excisions of basal cell carcinoma, right side of the face. 7. Cholecystectomy. 8. Right total auriculectomy due to invasive squamous cell carcinoma of the right auricle. 9. Partial colectomy due to acute diverticulitis. Home Medications True Jesus [id number] 1945 04/15/2016 10:50 AM Page: 05/20 albuterol sulfate HFA 90 mcg/actuation Aerosol Inhaler inhale 2 puff by inhalation route every 4 - 6 hours as needed ergocalciferol (vitamin D2) 2,000 unit tablet Take 1 by mouth daily furosemide 80 mg tablet take 1 tablet by oral route 3 times every day gabapentin 300 mg capsule TAKE ONE CAPSULE BY MOUTH THREE TIMES DAILY ipratropium-albuterol 0.5 mg-3 mg(2.5 mg base)/3 mL nebulization soln inhale 3 milliliter by nebulization route 3 times every day as needed levocetirizine 5 mg tablet take 1 tablet by oral route every day in the evening for allergies magnesium oxide 400 mg tablet take one tablet by mouth once daily metoprolol tartrate 50 mg tablet take 1 tablet by oral route every day with meals for heart Multivitamin 50 Plus tablet nitroglycerin 0.[address] 1 tablet under tongue every 5 min for chest pain up to 3 doses, if persists, call 911 oxycodone 10 mg tablet take 1 tablet by ORAL route every 4 hours as needed for pain oxycodone 5 mg capsule take 1 capsule by oral route every 3 hours as needed for pain oxycodone 5 mg tablet take 1 tablet by oral route every 4 hours as needed potassium chloride 20 mEq/15 mL oral liquid take 30 milliliter by oral route 2 times every day diluted in one-half glass (120 ml) of cold water or juice Qvar 40 mcg/actuation Metered Aerosol oral inhaler inhale 1 puff by inhalation route 2 times every day spironolactone 50 mg tablet take 1 tablet by oral route every day tramadol 50 mg tablet take 1 tablet by oral route every 6 hours as needed trazodone 100 mg tablet take 1 tablet by mouth in the evening for sleep/mood Tylenol Extra Strength 500 mg tablet take 1-2 Tablet by oral route Q6H PRN give instead of oxycodone Allergies: Coded Allergies: [place] Pepper (Verified Allergy, Severe, Anaphylaxis, 07/12/16) Patient reports severe allergy to peppers. Contrast Media (Verified Allergy, Severe, 07/12/16) Quinolones (Verified Allergy, Severe, 07/12/16) cefazolin (Verified Allergy, Severe, convulsions, cardiac, 07/12/16) hydrocodone bitartrate (Verified Allergy, Severe, rash, 07/12/16) levofloxacin (Verified Allergy, Severe, cardiac and convulsions, 07/12/16) niacin (Verified Allergy, Severe, convulsions, 07/12/16) nitrofurantoin (Verified Allergy, Severe, Rash,Itching,throat swelling, ) Penicillins (Verified Allergy, Unknown, 07/12/16) hydrocodone (Verified Allergy, Unknown, 07/12/16) egg (Verified Adverse Reaction, Intermediate, Nausea,Vomiting, 07/12/16) milk (Verified Adverse Reaction, Intermediate, Nausea,Vomiting,Diarrhea, ) Uncoded Allergies: eggs (Allergy, Mild, vomiting, 07/27/12) Patient reports past severe reaction to eggs. RUBBER (Allergy, Unknown, 01/07/15) rubber (Adverse Reaction, Mild, Rash,Itching,, 05/29/12) Family History Family History Unobtainable due to unconscious Social History Hx Alcohol Use: NoHx Substance Use: NoHx Tobacco Use: Yes Smoking Status: Former Smoker Living Arrangement: with Family Exam Vital Signs Vital Sign - Last Date Time Temp Pulse Resp B/P Pulse Ox O2 Delivery O2 Flow Rate FiO2 07/15/16 11:26 65 84/56 50 07/15/16 09:00 Ventilator 07/15/16 09:00 36.9 16 94 07/14/16 12:29 6.00 Intake and Output 07/14/16 07/14/16 07/15/16 Cumulative From/Thru 15:00 23:00 07:00 07/12/16 15:42 - 07/15/16 04:58 Intake Total 550 ml 700 ml 2790 ml Output Total 1200 ml 650 ml 6800 ml Balance -650 ml 50 ml -4010 ml Intake Oral 550 ml 700 ml 2790 ml Output Urine Total 1200 ml 650 ml 6800 ml # Bowel Movements 0 1 2 Additional Information: General: Intubated and sedated Eyes: constricted bilaterally Mouth: Mouth Normal, Mucous Membranes Moist/[place] Neck: Supple, no Thyromegaly, trachea central. Obese no JVD noted Chest & Lungs: Lung sounds equal bilaterally and coarse Cardiovascular: Regular rate and rhythm no murmurs rubs or gallops Pulses: Radial intact Abdomen: Soft and obese Extremities: No leg edema, no cyanosis, no clubbing. Skin: No rashes. Neurological: Sedated Psych: Sedated Lab and Diagnostics Result Diagram: 07/15/16 0542 07/15/16 0542 Assessment & Plan Assessment Dorys 1. Acute hypoxic and hypercapnic respiratory failure 2. Suspected pulmonary embolism 3. Acute on chronic diastolic heart failure 4. Acute kidney injury, resolving 5. Acute on chronic COPD exacerbation 6. Chronic atrial fibrillation 7. Acute Sepsis Neurological: Patient had a witnessed seizure this morning after becoming hypoxic. Patient was placed on Keppra 500 twice a day. We will increase this to 1000 twice a day. On exam it appears that the patient was twitching and 2 mg of Ativan ordered at 1145 this morning. Continue to monitor for seizure activity. Patient is currently sedated on propofol and fentanyl. CT of the head was negative for acute bleed. Cardiovascular: Patient's blood is 84/56 with a map of 65 while on sedation. Currently not had to use any pressors. Patient's last EKG this morning show atrial fibrillation although this is difficult to assess on exam. Patient also has a left bundle branch block. Patient's history also states that he has chronic atrial fibrillation but his current INR is around 1. Patient is currently on heparin for presumed PE. We will currently hold diuresis he was on for his heart at this point, but will revisit this tomorrow morning. Respiratory: Patient suffering from hypoxic and hypercapnic respiratory failure with required intubation. He is not difficult to ventilate at this point last ABG of 7.3993, 60, 113, 35.8, with a saturation of 98.4%. Patient has a respiratory acidosis with adequate compensation this point. Chest x-ray shows questionable edema with elevated hemidiaphragm on the right. Patient's episode this morning suspected to be due to a new pulmonary embolism with only a mild d- dimer. Patient has iodine allergy so we are unable to confirm this until late tonight or tomorrow morning. In the meantime will order a ultrasound for DVT. He was started on heparin with PE protocol. Patient also has COPD and will continue with nebulized bronchodilators and steroids. Recheck ABG in a.m. and tonight. GI/nutrition: Follow-up with tube feedings. Infection: Patient presented with initial white count of 8.8 but this now increased to 21.3, with no left shift. patient was started on steroids which could explain part of the rise of the leukocytosis but there is concern for unidentified infection. Patient's pro-calcitonin this morning was negative at 0.08. Currently blood cultures, sputum cultures, MRSA screen, and a respiratory PCR are pending. We will await these results. Patient was started on meropenem and vancomycin for broad-spectrum coverage. Renal: Patient had acute kidney injury when he first presented by this is resolved with the patient's diuresis. Currently the patient has a anion gap 12 and is compensating for the respiratory acidosis brought on by his hypercapnia. Disposition: Patient is currently in the ICU setting with no timetable for downgrading. This questionable seizure activity and we await the results of the EEG and imaging studies. Problems: VTE Mechanical Devices: Intermittant Pneumatic CD Resuscitation Status: CPR: Attempt Resuscitation Attending Statement I have seen and examined this patient with the resident physician. Vital signs , labs, imaging have been reviewed. I agree with the assessment and plan above. Please refer to my separately dictated progress note for any modifications to above. Purnima Page M.D. Pulmonary and Critical Care medicine Pager [phone] Jean Claude Hinojosa DO Jul 15, 2016 15:29 Purnima Page MD Jul 17, 2016 09:04
[2016-07-15] MEDS: Albuterol-Ipratropium 3 mL Inhalation Solution NEB PRN (15:52)
--- NOTE | 2016-07-15 16:51 | CONS ---
[address] [address] CONSULTATION REPORT PATIENT: SONNY JERNIGAN : 1945 MR#: [id number] ADMIT: 07/12/2016 JOB ID: [id number] DATE OF SERVICE: 07/15/2016 PULMONARY CRITICAL CARE CONSULTATION: The patient is a 71-year-old man seen in consultation at the request of Dr. Hale for acute hypoxic respiratory failure. The patient was seen and evaluated with resident physician, Dr. Jean Claude Rodriguez. Please refer to his separate detailed note for additional information. The following is a brief note. HISTORY OF PRESENT ILLNESS: The patient is a 71-year-old man who presented to the hospital on July 13 with worsening shortness of breath and lower extremity edema. He was admitted and treated for decompensated diastolic heart failure with IV Lasix. He diuresed very well over these few days but last night developed worsening respiratory distress and rapidly decompensated to respiratory arrest. He never lost a pulse but required bagging for a few minutes and then intubation. There is some report of unusual upper arm and head twitching suggesting seizure activity. He was given some IV Ativan for this reason. Past medical history, social history, family history, and review of systems as per Dr. Rodriguez's note. Also, a complete physical exam is in his note. PHYSICAL EXAMINATION: Vital signs reviewed. Temperature 36.9, pulse 65, respirations 16, BP 116/68, sats 94% on 50% FiO2. General: Intubated, sedated, unresponsive. Pupils equal. Chest: Clear to auscultation. HEENT: ET tube in place. Heart: Regular rate, rhythm. Abdomen: Nontender. Extremities: No cyanosis, clubbing, edema. Skin: No rashes. LABORATORIES: Reviewed. WBC up to 21 from 15 yesterday and 8.8 prior to that. Chemistry also reviewed and notable for creatinine of 1.18 from 1.35 yesterday; his admission creatinine was 1.2. BNP is up to 4900 from 2800 on admission. Cultures: No growth to date. Respiratory viral PCR is negative. Arterial blood gas shows pH 7.39, pCO2 of 60, pO2 of 113, bicarb of 35. IMAGING: Chest x-ray shows ET tube in appropriate position. Chronically elevated right hemidiaphragm without any acute infiltrate. ASSESSMENT: 1. Acute hypoxic hypercarbic respiratory failure. 2. Decompensated diastolic heart failure. 3. Suspected pulmonary embolism versus chronic obstructive pulmonary disease exacerbation. 4. Acute kidney injury. 5. Respiratory arrest on July 14, 2016. RECOMMENDATIONS: This is a 71-year-old man who was initially admitted with decompensated heart failure and seemed to improve with diuresis. Last night he developed rapid respiratory decompensation with respiratory arrest requiring mechanical ventilation. His blood gas shows chronic compensated hypercarbia, so I suspect he may have COPD. He is currently getting steroids and nebs for the possibility of COPD exacerbation. We also started him on broad-spectrum antibiotics to treat possible healthcare-associated pneumonia. Procalcitonin today is still very low at 0.08 but cultures are pending at this time. He is getting Lasix 20 mg IV daily. We have a CT pulmonary angiogram ordered but this is on hold because of his contrast allergy. He is getting premedication with prednisone. We started an empiric heparin drip for PE in the meantime. There is some question of seizure activity from his arrest last night. He is getting Keppra IV 1000 mg b.i.d. There is no active sign of seizure activity right now and an EEG is pending. He is on appropriate DVT and GI prophylaxis. He is a FULL CODE per his documentation from initial [facility]. However, the patient has no close family and his closest people seem to be his neighbor, friend, and radiology therapist. His radiology therapist was here today and told me that the patient himself expressed a few days ago that if he he would just want to be let go and not have any resuscitation done; however, I explained to the radiology therapist that this is not what he told our hospitalist on the day of admission. Unfortunately at this point we have no legal next of kin available to speak for the patient. We will continue full support and so he can be extubated hopefully and in the meantime we have consulted Palliative Care and social work to help us locate and discuss with family if any. CRITICAL CARE TIME: 60 minutes.
--- NOTE | 2016-07-15 16:59 | DRSVH ---
PROCEDURE: X-RAY CHEST ONE VIEW, PORTABLE ([id number]) INDICATIONS: TUBE PLACEMENT TECHNIQUE: One view of the chest was acquired. COMPARISON: [facility], CR, XR CHEST 1VW (PORTABLE), 07/14/2016, 10:19. FINDINGS: Surgical changes and devices: ETT has been placed tip projected 5.5 cm above the marvin. Lungs and pleura: Diffuse interstitial opacities seen within the lungs and there is elevation of righ t hemidiaphragm. The left lung bases not completely visualized secondary to positioning. Mediastinum: Mediastinal contours appear normal. Heart size is normal. Bones and chest wall: No suspicious bony lesions. Overlying soft tissues appear grossly normal. IMPRESSION: 1. Placement of ETT. 2. Diffuse pulmonary interstitial opacities suggestive of pulmonary edema. Correlate clinically. Dictated by: Nakul Krishna [facility] Interpreted: Gwen Murphy MD on 07/15/2016 at 9:33 Transcribed by: DANYELLE on 07/15/2016 at 9:35 Approved by: Gwen Murphy MD, PhD on 07/15/2016 at 16:57
[2016-07-15] MEDS ORDERED: MethylprednisoLONE Sodium Succinate 40 mg/mL Inj IVPUSH ONE ×2 (17:00→23:00)
[2016-07-15] MEDS ORDERED: 0.9% Sodium Chloride 250 ML ONE (17:27)
--- NOTE | 2016-07-15 17:53 | DRSVH ---
PROCEDURE: US VENOUS LEG DUPLEX BILATERAL INDICATIONS: ?DVT, CHF TECHNIQUE: Real-time imaging, as well as color and pulse Doppler interrogation, were performed of the deep veins of both legs from the inguinal ligament to the popliteal fossa. COMPARISON: None. FINDINGS: The deep veins are normally compressible, and free of intraluminal thrombus. Color and pu lse Doppler demonstrate normal phasic intravascular flow. There is normal augmentation response to d istal compression maneuver. IMPRESSION: No evidence for deep venous thrombosis is found in the right lower extremity with this d uplex venous Doppler study. No evidence for deep venous thrombosis is found in the left lower extremity with this duplex venous D oppler study. Dictated by: Fito Hurd M.D. on 07/15/2016 at 17:51 Approved by: Fito Hurd M.D. on 07/15/2016 at 17:52
--- NOTE | 2016-07-15 18:29 | ABG ---
DateTimeAnalyzed 18:21:00 -_ pH ____7.571 - 7.350 7.450 pCO2 ___34.6__ -mmHg 35.0 45.0 pO2 ___78.3__ -mmHg 69.0 116 HCO3- ___31.8__ -mmol/L 22.0 26.0 ABE ____9.3__ -mmol/L -2.0 2.0 tHb ___13.0__ -g/dL O2Hb ___95.1__ -% COHb ____1.5__ -% MetHb ____0.9__ -% sO2 ___97.4__ -% 25.0 FIO2 ___50.0__ -% PEEP ____8.0__ -cmH2O Vt __550.0__ -L Drawn By RC - Date/Time Notified____ 18:28:00 -_ Spontaneous_RR ___18.0__ -b/min Oxygen Device 1 VENTILATOR - Notified By RC - Notified Whom PARVEEN YANA RN -____ B 761 -mmHg tO2 ___17.4__ -Vol% Ag test N/A -
[2016-07-15] MEDS: Vancomycin Inj 1,000 MG in IV Premix 1 EACH IV SCH ×2 (19:34→19:36)
--- NOTE | 2016-07-15 19:39 | NUR ---
Post Code/Intubation.. pt was taken for stat CT of head this am with RT and Rn in attendance. Pt noted to be moving legs slightly on CT table, but is not following commands. Noted to have L eye deviation upward. At 1040 pt noted to have tremors in arms and shoulders, resembling seizure activity. MD present at the bedside. Given Ativan 2mg and no further seizure activity noted this shift. Pt had R IJ line placed and Diane to R radial. Opening CVP was 13. UOP has been adequate. Ordered for tube feeds. Noted that tube feeds has milk product and pt is listed as having allergy to milk. Dr Hernandez updated and ok to start feed given. Pt has no family contact and closest friends are [place]. They have taken his dog under their care and have pursued finding a DPOA or living relative. According to Simon (friend) he has no blood relatives and that his daughter and were killed some time ago in a drunk driving accident. It is noted that pt has been a [facility].. [facility] to see if they have any record in their charts of a living will. He has also been seen by [facility] as early as 6 mos ago.. they may possibly have some records. Pt has been known to have signed a living will that was noterized, but friends searching his home have not found anything thus far.
[2016-07-15] MEDS: Famotidine Inj 20 MG in IV Premix 1 EACH IV SCH (19:42)
[2016-07-15] MEDS: LEVETIRACETAM IV SCH (19:42)
[2016-07-15] MEDS: DEXTROSE 5% IV SCH (19:42)
[2016-07-16] VITALS (13 sets, daily range): BP systolic 95–137; BP diastolic 14–78; PULSE 64–80; RESP 14–21; O2SAT 93–98
[2016-07-16] MEDS: Sodium Chloride LOK Flush 10 mL Syringe IVFLUSH SCH ×3 (00:51→16:23)
[2016-07-16] MEDS: Meropenem Inj 2,000 MG in 0.9% Sodium Chloride 100 ML IV SCH ×3 (00:51→16:22)
[2016-07-16] MEDS: Chlorhexidine 0.12% 15 mL Oral Solution MT SCH ×6 (00:51→19:51)
[2016-07-16 03:21] LABS: BASOPHILS % (AUTO) 0 % (0-3); EOSINOPHILS % (AUTO) 0 % (0-5); MONOCYTES % (AUTO) 3.9 % (4-12); Mean Corpuscular Hemoglobin 29.1 pg (27.0-35.0); Mean Corpuscular Volume 92.3 fL (81-100); NEUTROPHILS % (AUTO) 90.8 % (40-74); Platelet Count 166 bil/L (150-400)
--- NOTE | 2016-07-16 04:48 | ABG ---
DateTimeAnalyzed 04:41:00 -_ pH ____7.497 - 7.350 7.450 pCO2 ___39.1__ -mmHg 35.0 45.0 pO2 ___90.7__ -mmHg 69.0 116 HCO3- ___30.1__ -mmol/L 22.0 26.0 ABE ____6.7__ -mmol/L -2.0 2.0 tHb ___12.7__ -g/dL O2Hb ___95.7__ -% COHb ____1.1__ -% MetHb ____0.9__ -% sO2 ___97.7__ -% 25.0 FIO2 ___50.0__ -% PEEP ____8.0__ -cmH2O Set_RR ___14.0__ -b/min Vt __550.0__ -L Drawn By MM - Date/Time Notified____ 04:48:00 -_ Spontaneous_RR ___14.0__ -b/min Oxygen Device 1 VENTILATOR - Notified By MM - Notified Whom RN - B 756 -mmHg tO2 ___17.2__ -Vol% Ag test N/A -
[2016-07-16] MEDS: Propofol Inj 1,000,000 MCG in IV Premix 1 EACH IV SCH ×5 (04:53→20:00)
[2016-07-16] MEDS: Heparin 25K Unit/500mL 0.45 NS 25,000 UNIT in IV Premix 1 EACH IV SCH (05:06)
[2016-07-16] MEDS: 0.9% Sodium Chloride 1,000 ML IV SCH (05:06)
--- NOTE | 2016-07-16 05:22 | NUR ---
Vent, sedation Vs as noted. Continues ventilated with sats mid 90s on 50% fio2 without desaturations. Propofol 25mcg/kg/min and Fentanyl 25mcg/h unchanged. Tolerating tube feeds without residuals. No stools. Paul cath in place with adequate uop. CT angio completed at 0000. Tolerated activity well. Tele afib with episodes Vpaced.
[2016-07-16] MEDS ORDERED: KCl 40 mEq/100 mL (CENTRAL) 40 MEQ in IV Premix 1 EACH IV ONE (07:10)
[2016-07-16] MEDS ORDERED: 0.9% Sodium Chloride 250 ML ONE (07:24)
[2016-07-16] MEDS: DEXTROSE 5% IV SCH ×2 (08:21→20:00)
[2016-07-16] MEDS: LEVETIRACETAM IV SCH ×2 (08:21→20:00)
[2016-07-16] MEDS: Fluticasone 100 mCg Inhaler INHALATION SCH (08:21)
[2016-07-16] MEDS: Famotidine Inj 20 MG in IV Premix 1 EACH IV SCH ×2 (08:21→19:51)
[2016-07-16] MEDS: Isosorbide Mononitrate 30 mg ER24 Tablet PO SCH (08:22)
[2016-07-16] MEDS: MeTOProlol XL 50 mg ER24 Tablet PO SCH (08:22)
[2016-07-16] MEDS: Furosemide 10 mg/mL 2 mL Inj IVPUSH SCH (08:30)
[2016-07-16] MEDS ORDERED: MethylprednisoLONE Sodium Succinate 62.5 mg/mL 2 mL Inj IVPUSH SCH (08:30)
--- NOTE | 2016-07-16 09:26 | DRSVH ---
PROCEDURE: CT ANGIO CHEST PULMONARY EMBOLISM ([id number]) INDICATIONS: sob and resp failure TECHNIQUE: After the administration of intravenous contrast, 2 mm thick sections acquired from the pulmonary api mika to the posterior costophrenic angles. 3-dimensional maximum intensity projection (MIP) coronal a nd sagittal reformats were then acquired through the thorax. For radiation dose reduction, the follo wing was used: automated exposure control, adjustment of mA and/or kV according to patient size. COMPARISON: None. FINDINGS: Image quality: Excellent. Pulmonary arteries: Pulmonary arteries are normal in size, and demonstrate no intraluminal filling d efects to suggest central pulmonary embolism. Lungs and pleura: Dense consolidation is present in the dependent portions of the lungs bilaterally. No pleural effusion. No pneumothorax. Patient is intubated. Mediastinum: Heart size is enlarged, without pericardial effusion. There is a single lead cardiac pa cer. No mediastinal or hilar adenopathy. Thoracic aorta is normal in caliber and enhancement. Scatt ered atheromatous calcifications are present within the aortic arch. Esophagus is normal in caliber , without hiatal hernia. Bones and chest wall: No suspicious bony lesions. Ribs and thoracic spine appear intact throughout. Thyroid gland is unremarkable. No axillary or supraclavicular adenopathy. Abdomen: Visualized upper abdominal solid organs appear normal in the early arterial phase of enhanc ement. IMPRESSION: 1. No acute pulmonary embolus. 2. Dense consolidation within the dependent lungs bilaterally suspicious for infection or aspiration. Dictated by: Anai Lucas M.D. on 07/16/2016 at 9:21 Approved by: Anai Lucas M.D. on 07/16/2016 at 9:24
[2016-07-16] MEDS: Vancomycin Inj 1,000 MG in IV Premix 1 EACH IV SCH ×2 (09:30→16:23)
--- NOTE | 2016-07-16 09:56 | PCM.PALLBR ---
Palliative Care Recommendation Summary of palliative recommendations: Symptom management (Pain/other): DPOA/Advanced Directives/POLST: 1. No prior Advanced Directives or POLST, however, EMR states POAs are Carlyn Justin at [phone] according to information from a [address]. [address] Peña contacted the [facility], they are able to come into the hospital tomorrow (Tuesday) to meet with the critical care team to discuss patient's clinical course and wishes. Claribel is at [phone]. Frank Justin is now at . Family/emotional support: Patient was originally , but his and daughter were both killed in a car accident caused by a drunk line driver. Per report from Simon, patient also has an ex- who has a daughter. The possible nephew turns out to be Frank Justin who is a long time friend and listed as POA with his Claribel. Simon went to the main business office of the [facility] to see what next of kin Abel listed when he rented his spot at the [place], but could find no additional information. Spiritual support: Patient was working with a engineer system administrator Hussain at [phone]. The telescope maintenance at [facility], Simon ([phone]), says that pt also attended [facility] recently. Problems: Resuscitation Status Resuscitation Status: CPR: Attempt Resuscitation Total time 35 minutes; >50% face to face with patient and/or family, providing counselling regarding plans and recommendations, and in care coordination with his/her medical teams. I also spent an additional 15 minutes counseling for advanced care planning with the patient/the patients family/the surrogate decision maker. Attending Statement Dr. Peña was physically present and available to assist resident physician. She agrees with management plan outline in brief note above. Palliative Brief Note Date of Service Jul 16, 2016 . 71 yo Male with CHF, COPD, CAD who was intubated 07/15/16 for acute respiratory arrest likely from aspiration at the time of an event that appeared to be a seizure. Dr. Peña spoke with Claribel the of Frank Justin this morning. This couple was documented in [facility] records to be the POA for patient in 2012. 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 Patient refers to Frank as his nephew even though they are friends. They continue to occasionally help patient with errands and yardwork as he has been getting less mobile. This couple is able to come into the hospital tomorrow (Tuesday07/18/15) to meet with Dr. Page and her team. Their cell phone numbers are: Claribel [phone] (okay to leave message) and Frank Justin: [phone]. At this time the [employer] remember signing the 2013 document, but are unable to locate their copy of it. Simon, a friend who is the telescope maintenance at the [facility] where patient lives, was able to look in patient's unit and but couldn't locate any documentation. Both Claribel and Simon say that patient does not have a scrap shear operator as that could be an additional way to access the POA document. Hilary Banerjee DO Jul 16, 2016 09:56 Jie Peña MD Jul 16, 2016 10:44
--- NOTE | 2016-07-16 10:28 | DRSVH ---
PROCEDURE: X-RAY CHEST ONE VIEW, PORTABLE ([id number]) INDICATIONS: intubated TECHNIQUE: One view of the chest was acquired. COMPARISON: [facility], CR, XR CHEST 1VW (PORTABLE), 07/15/2016, 13:03. [facility] spital, CT, CT ANGIO CHEST PE, 07/16/2016, 0:19. FINDINGS: Surgical changes and devices: Stable position ETT, nasogastric tube and right IJ CVL as well as singl e chamber left cardiac pacer. Lungs and pleura: No pleural effusions or pneumothorax. Bibasilar airspace opacities present simila r prior examination, left greater than right. Small effusions redemonstrated. Mediastinum: Mediastinal contours appear normal. Heart size is normal. Bones and chest wall: No suspicious bony lesions. Overlying soft tissues appear unremarkable. Surg ically resected distal left clavicle redemonstrated. IMPRESSION: Bibasilar atelectasis versus aspiration or pneumonia, left greater than right. Correlat e clinically. Dictated by: Nakul Krishna RRA Interpreted: Anai Lucas MD on 07/16/2016 at 10:27 Transcribed by: BLANCA on 07/16/2016 at 10:28 Approved by: Anai Lucas M.D. on 07/16/2016 at 13:42
--- NOTE | 2016-07-16 10:36 | PCM.PNMED ---
Subjective Date of Service Jul 16, 2016 Subjective 71 year old male with Coronary artery disease, chronic diastolic heart failure, COPD, hyperlipidemia, and Hypertension who presented to [facility] emergency department complaining of persistent shortness of breath. No events overnight. Today, he remains intubated and sedated on propofol and fentanyl. Exam Vital Signs Vital Sign - Last Date Time Temp Pulse Resp B/P Pulse Ox O2 Delivery O2 Flow Rate FiO2 07/16/16 08:00 69 113/60 50 07/16/16 07:44 Ventilator 07/16/16 07:44 36.4 14 96 07/14/16 12:29 6.00 Intake and Output 07/15/16 07/15/16 07/16/16 Cumulative From/Thru 15:00 23:00 07:00 07/12/16 15:42 - 07/16/16 05:55 Intake Total 2234 ml 2737 ml 7761 ml Output Total 1400 ml 1000 ml 9200 ml Balance 834 ml 1737 ml -1439 ml Intake Oral 2790 ml IV Total 2234 ml 2497 ml 4731 ml Tube Feeding 180 ml 180 ml Tube Irrigant 60 ml 60 ml Output Urine Total 1400 ml 1000 ml 9200 ml # Bowel Movements 0 2 Exam General: Intubated and sedated. Eyes: PERRLA, Scleral Anicteric Mouth: Mouth Normal, Mucous Membranes Moist/[place] Neck: Supple, no Thyromegaly, trachea central. Chest & Lungs: Decreased breathe sounds at bilateral bases.. Small amoutn of thick, blood-tinged secretions from suction. Cardiovascular: Normal S1, Normal S2, No Murmurs/Rubs/Gallops, Regular Rate/ Rhythm, (No JVD) Pulses: Radial (present and equal), Dorsalis Pedi (present and equal) Abdomen: Soft, Non-tender, Non-distended, Normoactive bowel tones. Musculoskeletal: Unremarkable. Normal range of motion, no swollen or erythematous joints Extremities: No leg edema, no cyanosis, no clubbing. Skin: No rashes. Warm and dry, no erythematous areas Neurological: Responds to painful stimuli with movement. Lymphatic: Lymph nodes Cervical and Axillary not palpable. Lab and Diagnostics Result Diagram: 07/16/16 0300 07/16/16 0300 X-Rays, CTs and MRIs X-RAY CHEST ONE VIEW, PORTABLE 07/12 IMPRESSION: Diffuse scarring/interstitial disease. No acute disease Dictated by: Jason Ann M.D. on 07/12/2016 at 17:42 Approved by: Jason Ann M.D. on 07/12/2016 at 17:44 PROCEDURE: CT ANGIO CHEST PULMONARY EMBOLISM IMPRESSION: 1. No acute pulmonary embolus. 2. Dense consolidation within the dependent lungs bilaterally suspicious for infection or aspiration. Approved by: Anai Lucas M.D. on 07/16/2016 at 9:24 Cardiac Echo Impressions Echocardiogram Report Interpretation Summary The left ventricle is normal in size. The ejection fraction is estimated to be 50-55%. There is apical hypokinesis. The right ventricular systolic pressure is estimated at 54 mmHg assuming a right atrial pressure of 15 mm Hg. Compared to the prior echo exam, there has been an increase in the severity of pulmonary hypertension. Electronically signed by: Pranav Snow on Reading Physician:07/13/2016 10:45 AM Additional Diagnostics PROCEDURE: US VENOUS LEG DUPLEX BILATERAL IMPRESSION: No evidence for deep venous thrombosis is found in the right lower extremity with this duplex venous Doppler study. No evidence for deep venous thrombosis is found in the left lower extremity with this duplex venous Doppler study. Approved by: Fiot Hurd M.D. on 07/15/2016 at 17:52 DateTimeAnalyzed 04:41:00 -_ pH ____7.497 - 7.350 7.450 pCO2 ___39.1__ -mmHg 35.0 45.0 pO2 ___90.7__ -mmHg 69.0 116 HCO3- ___30.1__ -mmol/L 22.0 26.0 ABE ____6.7__ -mmol/L -2.0 2.0 tHb ___12.7__ -g/dL O2Hb ___95.7__ -% COHb ____1.1__ -% MetHb ____0.9__ -% sO2 ___97.7__ -% 25.0 FIO2 ___50.0__ -% PEEP ____8.0__ -cmH2O Set_RR ___14.0__ -b/min Vt __550.0__ -L Drawn By MM - Date/Time Notified____ 04:48:00 -_ Spontaneous_RR ___14.0__ -b/min Oxygen Device 1 VENTILATOR - Notified By MM - Notified Whom RN - B 756 -mmHg tO2 ___17.2__ -Vol% Ag test N/A - Assessment & Plan 71 year old male with Coronary artery disease, chronic diastolic heart failure, COPD, hyperlipidemia, and Hypertension who presents to [facility] emergency department complaining of persistent shortness of breathe #. Acute on Chronic Hypoxic and Hypercapnic Respiratory Failure requiring vent support. Present on admission. Active. Etiology unclear but likely multifactorial with Acute Congestive heart failure but the hypercapnea could be due to COPD exacerbation and CT scan shows bilateral aspiration pneumonia. - Patient is currently intubated and sedated with ventilator support. He is on a propofol and fentanyl drip. - CT angiogram PE did not show an acute pulmonary embolism. Bilateral US to look for a DVT today while CT scan is pending. - Stopped heparin drip PE/DVT protocol - Spontaneous breathing trial today - Continue tube feeds for now #. Seizure activity, acute. - Possibly secondary to hypoxia. He does not have an underlying seizure disorder. Lactic acid and CK within normal limits. - CT brain without contrast showed no intracranial hemorrhage - Keppra 1000 mg BID for now until EEG completed - EEG today #. Acute on chronic diastolic congestive heart failure exacerbation. Patient has Restrictive Cardiomyopathy. Noted increased leg edema and BNP 2888. History of Coronary disease and its important to rule out underlying ischemia as a cause for failure. Question about compliance with both medications and low sodium diet. - Repeat echocardiography showed increase in severity of pulmonary hypertension. - Serial troponins negative - Holding Aldactone 25 mg daily due to hypotension and mild hypokalemia - CHF clinic referral - Resume furosemide at 20 mg once daily for now. Discontinued IV fluid #. Sepsis, acute. - Met criteria with respiratory rate 26 and WBC 15.2 - CT scan is suspicious for bilateral aspiration pneumonia and patient has thick sputum tinged with blood through suction this morning. - MRSA screen positive - Started on broad spectrum meropenem and vancomycin due to patient's medication allergies - Stopped IV fluids as blood pressure is now stable # MAYA, improving. -Cr 0.78 today -Due to overdiuresis -Continue to monitor #. Possible COPD exacerbation. Present on admission. - Difficult to say this is a COPD excerbation but patient now has sputum. WBC within normal limits originally but now elevated at 21.3 and pro-calcitonin 0.08 this morning - Continuing QVar, DuoNeb treatments as needed - Solu-Medrol 125 mg IV once in the ED and restarted yesterday after intubation #. Chronic Atrial fibrillation. Was not on any anticoagulation. Rate controlled. - Monitor on telemetry - Hold Metoprolol for now - Continue aspirin daily #. Hypertension, chronic. -Hold Metoprolol and Imdur -Hold spironolactone and hydralazine due to low BP -Continue to monitor #. Chronic pain syndrome on narcotics - Currently, on fentanyl for intubation. #. Hyperkalemia, acute, present on admission. Improved. - Mildly low at 3.4 this morning and replenished - Holding spironolactone and home potassium chloride - Continue to monitor Disposition: ICU on ventilator. VTE Mechanical Devices: Intermittant Pneumatic CD Resuscitation Status: CPR: Attempt Resuscitation Attending Statement The patient was seen and examined together with Dr. Watson on 07/16/2016 and I agree with the history, exam and plan as outlined in the note above. France Watson DO Jul 16, 2016 10:22 Derrell Hale MD Jul 16, 2016 16:27
--- NOTE | 2016-07-16 11:18 | NUR ---
Infection Prevention Patient placed in to Contact precautions due to positive MRSA screen.
[2016-07-16] MEDS ORDERED: Sodium Chloride LOK Flush 10 mL Syringe IVFLUSH PRN ×2 (14:05)
--- NOTE | 2016-07-16 14:44 | PROG NOTE ---
[address] [address] PROGRESS NOTE PATIENT: SONNY JERNIGAN : 1945 MR#: [id number] ADMIT: 07/12/2016 JOB ID: [id number] DATE: 07/16/2016 PULMONARY CRITICAL CARE PROGRESS NOTE: The patient is a 71-year-old man with a history of decompensated heart failure transferred to the ICU with acute hypoxic respiratory failure likely due to aspiration. INTERVAL HISTORY: No major overnight events. He ended up having his CT scan later and this showed no pulmonary embolism. REVIEW OF SYSTEMS: Unable to obtain. PHYSICAL EXAMINATION: Vital signs reviewed. Afebrile. Pulse 78, respirations 14, BP 112/66, sats 97% on 50% FiO2. General: Intubated, sedated, not really responsive. Chest is clear to auscultation. LABORATORIES: Reviewed. WBC down to 9 from 21 yesterday. Also chemistries are within normal limits. Procalcitonin down this morning, was 0.18. Cultures: No growth on blood and sputum cultures although MRSA nasal swab was positive. Respiratory viral PCR was negative. Chest x-ray is clear. CT angiography done at midnight last night shows no acute pulmonary embolism but the patient does have bilateral dense posterior basilar consolidation in bilateral lower lobes that could be due to aspiration. ASSESSMENT AND RECOMMENDATIONS: 1. Acute hypoxic respiratory failure. 2. Suspected aspiration pneumonitis/pneumonia. 3. Decompensated diastolic heart failure. 4. Acute kidney injury-resolved. 5. Respiratory arrest on July 14, 2016. A 71-year-old man who was initially admitted with decompensated heart failure and seemed to improve with diuresis and then developed acute respiratory distress on the night of July 14, 2016 requiring emergent intubation and mechanical ventilation. CT pulmonary angiogram shows no PE and findings on lungs that could be due to aspiration pneumonitis. I think this is probably the most likely explanation here given negative workup for other etiologies. We stopped his heparin drip. He is on broad-spectrum antibiotics for aspiration/healthcare associated pneumonia, especially since his MRSA nasal swab is positive. He is restarted on Lasix IV daily. I would like to do a spontaneous breathing trial today and see how he does. If he does well, we could even consider extubation today. We have managed to locate a legal next of kin/power of darkroom technician based on a document signed in 2013. Appreciate palliative care's assistance in this matter. critical care time:35 minutes COREY
--- NOTE | 2016-07-16 15:15 | PCM.PHAPRO ---
Progress SOB Vancomycin Dosing: Indication: Suspected aspiration PNA with positive MRSA screen Concomitant ABx: Meropenem Problems include: Acute hypoxic respiratory failure. Decompensated diastolic heart failure. Acute kidney injury-resolved. a/ Creatinine dropped from 1.2 to 0.8, improving MAYA p/ Increase vancomycin to 1g every 8 hours for predicted Cpmin of ~15mcg/mL Level in AM Nicola Forrest Pharm D Jul 16, 2016 15:15
[2016-07-16] MEDS: MethylprednisoLONE Sodium Succinate 62.5 mg/mL 2 mL Inj IVPUSH SCH (16:44)
--- NOTE | 2016-07-16 17:24 | NUR ---
Neuro/Respiratory... Pt had fentanyl and propofol gtts reduced this am and was able to do a 20 min pressure support trial . Pt started awakening and becoming agitated and trial was stopped at that point. Before resuming sedation pt did nod appropriately to questions asked. Had EEG done this afternoon. Continues to yajaira tube feeds well. Given Senna as no stool recorded since 07/13. The [facility] has requested to meet with the claim technician. Dr Page updated and can meet with her tomorrow between -. Message left for Claribel on her phone re this.
[2016-07-17] VITALS (15 sets, daily range): BP systolic 95–164; BP diastolic 48–96; PULSE 70–88; RESP 14–24; O2SAT 91–95
[2016-07-17] MEDS: Sodium Chloride LOK Flush 10 mL Syringe IVFLUSH SCH ×4 (00:30→23:08)
--- NOTE | 2016-07-17 00:36 | PROCED ---
[address] [address] EEG PATIENT: SONNY JERNIGAN : 1945 MR#: [id number] ADMIT: 07/12/2016 JOB ID: [id number] DATE OF SERVICE: 07/16/2016 HISTORY: A 71-year-old man with an episode of body shaking. TECHNICAL DESCRIPTION: This digital EEG was performed using 25 scalp and ear and two EKG electrodes. It was reviewed in bipolar and referential montages following reformatting in the 10[employer]de [employer] System. During the recording, the patient was noted to be briefly awake; however, the majority of the recording was drowsy and lethargic. The majority of this recording is comprised of high amplitude diffuse delta, at times appearing triphasic. Although it does appear at times quite rhythmic, it does not clearly appear epileptiform, and the rhythmicity is triphasic-like in nature. There is no clear posterior dominant rhythm. There was abundant myogenic and movement artifact. The patient is intubated. His eyes remained closed throughout most of this recording, and there did not appear to be any clear posterior dominant rhythm. Hyperventilation was not performed. Photic stimulation from 1-30 Hz did not elicit any photic-driving response. The single- lead EKG revealed a heart rate ranging from 60-120 beats per minute with the appearance of intermittent irregularly irregular QRS complexes at times with the absence of P waves suggestive of intermittent atrial fibrillation. If clinically indicated, a 12-lead electrocardiogram may be warranted. Clinical correlation is advised. There were no clear focal lateralized or epileptiform discharges noted. There were no clear seizures noted. With eye opening, there was a mild increase in frequency of cortical activity; however, still within the delta range and abundant myogenic movement artifact was noted. Due to this, the patient was placed back on propofol. IMPRESSION: This electroencephalogram performed in the briefly awake and principally drowsy states is abnormal. It is suggestive of moderate cerebral cortical dysfunction/encephalopathy. This is a nonspecific finding and may be seen in a wide variety of different clinical conditions, including toxic, metabolic, hypoxic, autoimmune, infectious, and inflammatory states. It may also be seen in the setting of sedative medications, in this case propofol. If clinically warranted, I do recommend a repeat electroencephalogram holding the propofol for at least 10 minutes if not longer prior to the electroencephalogram. Clinical correlation is advised. MTDD
[2016-07-17] MEDS: Meropenem Inj 2,000 MG in 0.9% Sodium Chloride 100 ML IV SCH ×3 (01:00→16:39)
[2016-07-17] MEDS: MethylprednisoLONE Sodium Succinate 62.5 mg/mL 2 mL Inj IVPUSH SCH ×4 (01:01→20:42)
[2016-07-17] MEDS: Vancomycin Inj 1,000 MG in IV Premix 1 EACH IV SCH ×3 (01:01→16:40)
[2016-07-17] MEDS: Chlorhexidine 0.12% 15 mL Oral Solution MT SCH ×6 (01:01→20:28)
[2016-07-17] MEDS: Heparin 5,000 Unit/mL Inj SUBQ SCH ×3 (01:01→16:40)
--- NOTE | 2016-07-17 04:14 | ABG ---
DateTimeAnalyzed 04:08:00 -_ pH ____7.465 - 7.350 7.450 pCO2 ___41.1__ -mmHg 35.0 45.0 pO2 ___77.9__ -mmHg 69.0 116 HCO3- ___29.2__ -mmol/L 22.0 26.0 ABE ____5.4__ -mmol/L -2.0 2.0 tHb ___13.2__ -g/dL O2Hb ___94.6__ -% COHb ____0.9__ -% MetHb ____0.9__ -% sO2 ___96.3__ -% 25.0 FIO2 ___40.0__ -% PEEP ____8.0__ -cmH2O Set_RR ___14.0__ -b/min Vt __550.0__ -L Drawn By RB - Date/Time Notified____ 04:14:00 -_ Spontaneous_RR ___14.0__ -b/min Oxygen Device 1 VENTILATOR - Notified By RB - Notified Whom Nakul K, RN - B 751 -mmHg tO2 ___17.6__ -Vol% Ag test N/A -
[2016-07-17 04:34] LABS: Mean Corpuscular Hemoglobin 29.1 pg (27.0-35.0); Mean Corpuscular Volume 91.6 fL (81-100)
[2016-07-17] MEDS: Propofol Inj 1,000,000 MCG in IV Premix 1 EACH IV SCH (05:55)
--- NOTE | 2016-07-17 06:07 | NUR ---
Respiratory, sedation VS as noted. Continues ventilated with sats mid 90s on 40% fio2 without desats. Suctioning minimal secretions per ett. Fentanyl 25mcg/h and Propofol 25mcg/kg/min unchanged. Arouses with stim to open eyes slightly and move all extremities. Tolerating tube feeds well. No stools. Paul cath in place with 550ml uop this shift.
[2016-07-17] MEDS ORDERED: Glucose 40% Oral Gel 15 Gm Tube PO PRN (07:20)
--- NOTE | 2016-07-17 07:54 | DRSVH ---
PROCEDURE: X-RAY CHEST ONE VIEW, PORTABLE ([id number]) INDICATIONS: respiratory failure TECHNIQUE: One view of the chest was acquired. COMPARISON: [facility], CR, XR CHEST 1VW (PORTABLE), 07/16/2016, 5:33. [facility], CR, XR CHEST 1VW (PORTABLE), 07/15/2016, 13:03. [facility], CR, XR CHEST 1VW (PORT ABLE), 07/15/2016, 5:44. FINDINGS: Surgical changes and devices: Tubes and catheters are in stable and expected positions. Left-sided pa cer. Lungs and pleura: No pleural effusions or pneumothorax. No change in left greater than right bibasil ar airspace opacity. Mediastinum: Mediastinal contours appear normal. Heart size is normal. Bones and chest wall: No suspicious bony lesions. Overlying soft tissues appear unremarkable. IMPRESSION: 1. No change in bibasilar pneumonia. Dictated by: Aarti Flood M.D. on 07/17/2016 at 7:48 Approved by: Aarit Flood M.D. on 07/17/2016 at 7:48
[2016-07-17] MEDS ORDERED: Vancomycin Serum Trough XX ONE (08:30)
[2016-07-17] MEDS ORDERED: 0.9% Sodium Chloride 250 ML ONE ×2 (08:41)
[2016-07-17] MEDS: Furosemide 10 mg/mL 2 mL Inj IVPUSH SCH (08:48)
[2016-07-17] MEDS: LEVETIRACETAM IV SCH (08:49)
[2016-07-17] MEDS: DEXTROSE 5% IV SCH (08:49)
[2016-07-17] MEDS: Famotidine Inj 20 MG in IV Premix 1 EACH IV SCH ×2 (08:49→20:42)
[2016-07-17] MEDS: Insulin LISPRO 300 Unit/3 mL Inj SUBQ SCH ×4 (08:56→21:32)
[2016-07-17] MEDS: Albuterol-Ipratropium 3 mL Inhalation Solution NEB PRN ×3 (10:04→20:01)
[2016-07-17] MEDS ORDERED: Furosemide 10 mg/mL 10 mL Inj IVPUSH ONE (10:05)
--- NOTE | 2016-07-17 12:15 | PCM.PNMED ---
Subjective Date of Service Jul 17, 2016 Subjective 71 year old male with Coronary artery disease, chronic diastolic heart failure, COPD, hyperlipidemia, and Hypertension who presented to [facility] emergency department complaining of persistent shortness of breath. No events overnight. He is tolerating tube feeds well. This morning, he remains intubated this morning and was sleeping. Exam Vital Signs Vital Sign - Last Date Time Temp Pulse Resp B/P Pulse Ox O2 Delivery O2 Flow Rate FiO2 07/17/16 11:34 85 93 OxyMask 7.00 07/17/16 11:15 20 147/67 40 07/17/16 08:30 36.9 Intake and Output 07/16/16 07/16/16 07/17/16 Cumulative From/Thru 14:59 22:59 06:59 07/12/16 15:42 - 07/17/16 05:50 Intake Total 2170 ml 1382 ml 59918 ml Output Total 600 ml 550 ml 35999 ml Balance 1570 ml 832 ml 963 ml Intake Oral 2790 ml IV Total 1571 ml 742 ml 7044 ml Tube Feeding 469 ml 550 ml 1199 ml Tube Irrigant 130 ml 90 ml 280 ml Output Urine Total 600 ml 550 ml 74330 ml # Bowel Movements 0 2 Exam General: Intubated. Eyes: PERRLA, Scleral Anicteric Mouth: Mouth Normal, Mucous Membranes Moist/[place] Neck: Supple, no Thyromegaly, trachea central. Chest & Lungs: Decreased breathe sounds at bilateral bases. Cardiovascular: Normal S1, Normal S2, No Murmurs/Rubs/Gallops, Regular Rate/ Rhythm, (No JVD) Pulses: Radial (present and equal), Dorsalis Pedi (present and equal) Abdomen: Soft, Non-tender, Non-distended, Normoactive bowel tones. Musculoskeletal: Unremarkable. Normal range of motion, no swollen or erythematous joints Extremities: No leg edema, no cyanosis, no clubbing. Skin: No rashes. Warm and dry, no erythematous areas Neurological: Responds to painful stimuli with movement. Lymphatic: Lymph nodes Cervical and Axillary not palpable. IVs and Medications Medications Reviewed: Medications were reviewed in detail Lab and Diagnostics Result Diagram: 07/17/165 07/17/[address]404 X-Rays, CTs and MRIs X-RAY CHEST ONE VIEW, PORTABLE 07/12 IMPRESSION: Diffuse scarring/interstitial disease. No acute disease Dictated by: Jason Ann M.D. on 07/12/2016 at 17:42 Approved by: Jason Ann M.D. on 07/12/2016 at 17:44 PROCEDURE: CT ANGIO CHEST PULMONARY EMBOLISM IMPRESSION: 1. No acute pulmonary embolus. 2. Dense consolidation within the dependent lungs bilaterally suspicious for infection or aspiration. Approved by: Anai Lucas M.D. on 07/16/2016 at 9:24 Cardiac Echo Impressions Echocardiogram Report Interpretation Summary The left ventricle is normal in size. The ejection fraction is estimated to be 50-55%. There is apical hypokinesis. The right ventricular systolic pressure is estimated at 54 mmHg assuming a right atrial pressure of 15 mm Hg. Compared to the prior echo exam, there has been an increase in the severity of pulmonary hypertension. Electronically signed by: Pranav Snow on Reading Physician:07/13/2016 10:45 AM Additional Diagnostics PROCEDURE: US VENOUS LEG DUPLEX BILATERAL IMPRESSION: No evidence for deep venous thrombosis is found in the right lower extremity with this duplex venous Doppler study. No evidence for deep venous thrombosis is found in the left lower extremity with this duplex venous Doppler study. Approved by: Fito Hurd M.D. on 07/15/2016 at 17:52 DateTimeAnalyzed 04:41:00 -_ pH ____7.497 - 7.350 7.450 pCO2 ___39.1__ -mmHg 35.0 45.0 pO2 ___90.7__ -mmHg 69.0 116 HCO3- ___30.1__ -mmol/L 22.0 26.0 ABE ____6.7__ -mmol/L -2.0 2.0 tHb ___12.7__ -g/dL O2Hb ___95.7__ -% COHb ____1.1__ -% MetHb ____0.9__ -% sO2 ___97.7__ -% 25.0 FIO2 ___50.0__ -% PEEP ____8.0__ -cmH2O Set_RR ___14.0__ -b/min Vt __550.0__ -L Drawn By MM - Date/Time Notified____ 04:48:00 -_ Spontaneous_RR ___14.0__ -b/min Oxygen Device 1 VENTILATOR - Notified By MM - Notified Whom RN - B 756 -mmHg tO2 ___17.2__ -Vol% Ag test N/A - Assessment & Plan 71 year old male with Coronary artery disease, chronic diastolic heart failure, COPD, hyperlipidemia, and Hypertension who presents to [facility] emergency department complaining of persistent shortness of breathe #. Acute on chronic diastolic congestive heart failure exacerbation. Patient has Restrictive Cardiomyopathy. Noted increased leg edema and BNP 2888. History of Coronary disease and it was important to rule out underlying ischemia as a cause for failure. Question about compliance with both medications and low sodium diet. - Repeat echocardiography showed increase in severity of pulmonary hypertension. - Serial troponins negative - Holding Aldactone 25 mg daily due to hypotension - CHF clinic referral - Resume furosemide at 60 mg once daily for now. #. Acute on Chronic Hypoxic and Hypercapnic Respiratory Failure requiring vent support. Present on admission. Active. Etiology likely multifactorial with HCAP,Acute Congestive heart failure but the hypercapnea could be due to COPD exacerbation and CT scan shows bilateral aspiration pneumonia. - Patient is currently intubated and sedated with ventilator support. He is on a propofol and fentanyl drip. - CT angiogram PE did not show an acute pulmonary embolism. - Plan to extubate today #. Possible seizure activity, acute. - Possibly secondary to hypoxia. He does not have an underlying seizure disorder. Lactic acid and CK within normal limits. - CT brain without contrast showed no intracranial hemorrhage - EEG did not show seizure activity - Decreased Keppra to 500 mg BID, consider discontinuing #. Sepsis, acute. - Met criteria with respiratory rate 26 and WBC 15.2 - CT scan is suspicious for bilateral aspiration pneumonia and patient had thick sputum tinged with blood through suction. - MRSA screen positive - Started on broad spectrum meropenem and vancomycin due to patient's medication allergies #. Possible COPD exacerbation. Present on admission. - Difficult to say this is a COPD excerbation but patient later had sputum. WBC within normal limits originally but now 12.6 - Continuing QVar, DuoNeb treatments as needed - Solu-Medrol 125 mg IV once in the ED and restarted 07/16/16 and now getting 40 mg every 8 hours,will start to taper #. Chronic Atrial fibrillation. Was not on any anticoagulation. Rate controlled. - Monitor on telemetry - Resume metoprolol - Heparin subcutaneous q8h for now until can assess why pt was not on anticoagulation as an outpatient #. Hypertension, chronic. -Resume metoprolol and Imdur -Hold spironolactone and hydralazine due to previously low BP (and hyperkalemia for spironolactone),may resume tmrw -Continue to monitor # MAYA, improved. -Cr 0.77 today -Due to overdiuresis -Continue to monitor #. Chronic pain syndrome on narcotics - Currently, on fentanyl for intubation. #. Hyperkalemia, acute, present on admission. Improved. - Holding spironolactone and home potassium chloride - Continue to monitor Disposition: If stable overnight, then consider transfer out of ICU VTE Mechanical Devices: Intermittant Pneumatic CD Resuscitation Status: CPR: Attempt Resuscitation Attending Statement The patient was seen and examined together with Dr. Watson on 07/17/2016 and I agree with the history, exam and plan as outlined in the note above. France Watson DO Jul 17, 2016 12:14 Derrell Hale MD Jul 17, 2016 17:59
--- NOTE | 2016-07-17 12:40 | PROG NOTE ---
[address] [address] PROGRESS NOTE PATIENT: SONNY JERNIGAN : 1945 MR#: [id number] ADMIT: 07/12/2016 JOB ID: [id number] DATE: 07/17/2016 PULMONARY CRITICAL CARE PROGRESS NOTE: The patient is a 71-year-old man admitted with decompensated diastolic heart failure, transferred to the ICU with acute respiratory failure likely due to aspiration. INTERVAL HISTORY: He is on a spontaneous breathing trial this morning, doing well, and we decided to extubate him. REVIEW OF SYSTEMS: Unable to obtain since the patient is intubated. PHYSICAL EXAMINATION: Vital signs reviewed. T-max of 37, pulse 85, respirations 20, BP 140/60, sats 93% on 40% FiO2. General: Intubated, sedated. Moving arms, trying to reach the tube, but not really following commands for me. Chest: Clear to auscultation. LABORATORIES: Reviewed. WBC 12.6, up from 9. Hemoglobin 13.1, platelets 202. Chemistry also reviewed and within normal limits. Cultures: No new growth. Chest x-ray reviewed and shows some retrocardiac atelectasis but no other abnormalities. ASSESSMENT: 1. Acute hypoxic respiratory failure. 2. Decompensated diastolic heart failure. 3. Aspiration pneumonia/pneumonitis. 4. Acute kidney injury-resolved. 5. Respiratory arrest on July 14, 2016, extubated today, July 17. RECOMMENDATIONS: A 71-year-old man who was initially admitted with decompensated heart failure and started improving diuresis and then had an acute respiratory arrest on the night of July 14, 2016 requiring emergent intubation and mechanical ventilation. We have worked him up for other possibilities including PE, etc. I suspect he had an aspiration event. He is on antibiotics currently for aspiration. I gave him a dose of 60 mg IV of Lasix this morning to help with diuresis and volume resuscitation that he received over the last few days. He is doing well enough that we are going to extubate him and have BiPAP handy in case he needs it. If he has any difficulty or high oxygen requirements, then I would recommend putting him on BiPAP overnight. If he stays stable overnight, I think it would be reasonable to move him out of the ICU tomorrow. TIME: Critical care time 40 minutes.
--- NOTE | 2016-07-17 14:16 | NUR ---
GUERO signed verbal from patient
--- NOTE | 2016-07-17 14:30 | PCM.PHAPRO ---
Progress Date of Service: Jul 17, 2016 Vancomycin dosing A/ Vancomycin trough came back at 14.5.The goal for this patient is 15-20. P/ Continue with current dosing and anticipate accumulating into range of 15-20. Tolu Wen Jul 17, 2016 14:30
--- NOTE | 2016-07-17 14:55 | NUR ---
P: Respiratory Distress I: Pt extubated at 1130 and placed on Oxymask 7L. Pt confused and pulling at lines and mask. Restraints on for pt safety. Pt tries to get up out of bed. NPO. A-fib with paced beats and PVC's. CVP 12. Lasix 60mg IV as an added dose. Paul patent and draining large amount of light yellow urine after Lasix given. No Bm's. Turned q 2 hours. Blood sugars stable with sliding scale ordered. Friend Simon at bedside and updated on pt's condition and plan of care. DPOA message left for a time to meet with no response. OGT dc'd when extubated. No seizure activity noted. RIJ TLC patent. Rt arterial line patent. E: Improved S: Restraints on for pt safety. Frequent rounding.
--- NOTE | 2016-07-17 16:25 | NUR ---
NUTRITION FOLLOW-UP: Assess: The patient is a 71-year-old man admitted with decompensated diastolic heart failure, transferred to the ICU with acute respiratory failure likely due to aspiration. He experienced acute respiratory arrest on the night of July 14, 2016 requiring emergent intubation and mechanical ventilation. He was successfully extubated today but remains confused; swallow evaluation not yet ordered. PMHx: CAD w/ CO in 1984, chronic right hemidiaphragm elevation, diastolic CHF, chronic A fib, HLD, HTN, chronic respiratory failure, history of acute promyelocytic leukemia, melanoma w/ removal of lesion on right face, invasive squamous cell carcinoma, chronic hypokalemia, CVA w/ right-sided hemiparesis, diverticulitis, esophageal stricture, GERD, dysphagia, right ear removal, esophageal reconstruction, right shoulder surgery, right knee surgery, multiple skin excisions of basal cell carcinoma, cholecystectomy, partial colectomy d/t acute diverticulitis LABS: Glu 191, A1c 6.0, Ca 8.3. MEDICATIONS: Lasix, insulin, solu-medrol, lopressor. DIET: NPO. Prior PO intake on Heart Healthy diet of 25-100%. ENTERAL FEEDING DISCONTINUED AT EXTUBATION: Pulmocare at goal rate 70 ml/hr, providing 2822 calories, 96 g protein, meeting 100% of calorie needs and 74% of protein needs. GI symptoms/stool: BM x 1 (3/2). Skin integrity: Hiram 14. ANTHROPOMETRICS: Current Wt: 125.4 kg BMI: 35.0 kg/m2 Admit Wt: 129.8 kg IBW: 86.4 kg Prior Admit Wt: 123.4 kg (wt gain likely fluid related) ESTIMATED NEEDS: Vent/BMI Calories: 4762-7742 kcal/day (20-22 kcal/kg BW) Protein: 130-155 g/day (1.5-1.8 g/kg IBW) Fluids: Approx 9773-2085 ml/day (1 ml/kcal/day) NUTRITION DIAGNOSIS: 1) Inadequate oral intake related to inability to consume sufficient energy as evidenced by current NPO status - PERSISTS. 2) Increased nutrient needs related to difficulty breathing as evidenced by worsening respiratory status and possible COPD exacerbation - PERSISTS.. INTERVENTION: 1) In the event diet unable to be advanced over weekend, recommend restart enteral feeding per RD recommendations. MONITOR/EVALUATE: Diet advance, PO intake, labs, GI, wt, nutrition status, POC. Will continue to monitor per high nutrition risk guidelines.
[2016-07-17] MEDS ORDERED: levETIRAcetam 500 mg Tablet PO SCH (20:30)
[2016-07-17] MEDS: MeTOProlol 1 mg/mL 5 mL Inj IVPUSH SCH (20:41)
[2016-07-18] VITALS (12 sets, daily range): BP systolic 125–145; BP diastolic 77–92; PULSE 77–91; RESP 18–28; O2SAT 92–97
[2016-07-18] MEDS: Meropenem Inj 2,000 MG in 0.9% Sodium Chloride 100 ML IV SCH ×3 (00:06→16:28)
[2016-07-18] MEDS: Vancomycin Inj 1,000 MG in IV Premix 1 EACH IV SCH ×3 (00:06→16:29)
[2016-07-18] MEDS: Heparin 5,000 Unit/mL Inj SUBQ SCH ×3 (00:13→16:29)
[2016-07-18] MEDS: Albuterol-Ipratropium 3 mL Inhalation Solution NEB PRN (01:45)
[2016-07-18] MEDS: MeTOProlol 1 mg/mL 5 mL Inj IVPUSH SCH ×4 (01:58→21:56)
--- NOTE | 2016-07-18 02:27 | ABG ---
DateTimeAnalyzed 02:21:00 -_ pH ____7.470 - 7.350 7.450 pCO2 ___42.5__ -mmHg 35.0 45.0 pO2 ___73.1__ -mmHg 69.0 116 HCO3- ___30.5__ -mmol/L 22.0 26.0 ABE ____6.5__ -mmol/L -2.0 2.0 tHb ___14.8__ -g/dL O2Hb ___94.5__ -% COHb ____0.9__ -% MetHb ____0.8__ -% sO2 ___96.1__ -% 25.0 FIO2 ___45.0__ -% CPAP ___18.0__ -cmH2O PEEP ____8.0__ -cmH2O Set_RR ___18.0__ -b/min Vt __625.0__ -L Drawn By RB - Date/Time Notified____ 02:27:00 -_ Spontaneous_RR ___28.0__ -b/min Oxygen Device 1 ___BI PAP - Notified By RB - Notified Whom LAURIE S, RN - B 744 -mmHg tO2 ___19.6__ -Vol% Ag test N/A -
[2016-07-18 03:24] LABS: BASOPHILS % (AUTO) 0.1 % (0-3); EOSINOPHILS % (AUTO) 0 % (0-5); MONOCYTES % (AUTO) 4.4 % (4-12); Mean Corpuscular Hemoglobin 29.2 pg (27.0-35.0); Mean Corpuscular Volume 91.9 fL (81-100); NEUTROPHILS % (AUTO) 93.6 % (40-74); Platelet Count 268 bil/L (150-400)
--- NOTE | 2016-07-18 05:06 | NUR ---
Resp Patient requiring increased levels of O2 via Oxymask to maintain SpO2 of 92%. 12L OM and RT notified. Lung sounds very decreased. Nebs given. Bipap placed on patient, 45%, 31/12. Patient has intermittent anxiety about whether bipap is giving him enough O2, reassured that he is and that he is being closely monitored. Patient begins getting mad which was a change in his behavior so his AM ABGs were drawn early. No changes. Patient removes art line following this. MD updated. Patient currently resting on the bipap.
--- NOTE | 2016-07-18 07:35 | DRSVH ---
PROCEDURE: X-RAY CHEST ONE VIEW, PORTABLE ([id number]) INDICATIONS: 71-year-old male with dyspnea and cough. TECHNIQUE: One view of the chest was acquired. COMPARISON: [facility], CR, XR CHEST 1VW (PORTABLE), 07/17/2016, 5:11. [facility], CR, XR CHEST 1VW (PORTABLE), 07/16/2016, 5:33. [facility], CR, XR CHEST 1VW (ANIYA BLE), 07/15/2016, 13:03. FINDINGS: Surgical changes and devices: Right internal jugular central venous catheter remains in expected posi tion, as well as left chest wall single lead pacemaker. Endotracheal tube and nasogastric tube have b een withdrawn. Lungs and pleura: No pleural effusions or pneumothorax. Lung volumes are decreased, with persistent retrocardiac opacity. Mediastinum: Mediastinal contours appear normal. Heart size is normal given AP technique. Bones and chest wall: No suspicious bony lesions. Overlying soft tissues appear unremarkable. IMPRESSION: Decreased lung volumes status post extubation, with persistent retrocardiac atelectasis versus pneumo shelly. Dictated by: Bridger Wheat M.D. on 07/18/2016 at 7:32 Approved by: Bridger Wheat M.D. on 07/18/2016 at 7:33
[2016-07-18] MEDS: Insulin LISPRO 300 Unit/3 mL Inj SUBQ SCH ×4 (07:43→22:00)
[2016-07-18] MEDS: Sodium Chloride LOK Flush 10 mL Syringe IVFLUSH SCH ×2 (07:43→16:29)
[2016-07-18] MEDS ORDERED: 0.9% Sodium Chloride 250 ML ONE (07:49)
[2016-07-18] MEDS: Famotidine Inj 20 MG in IV Premix 1 EACH IV SCH ×2 (08:50→21:56)
[2016-07-18] MEDS: Furosemide 10 mg/mL 2 mL Inj IVPUSH SCH (08:51)
[2016-07-18] MEDS: MethylprednisoLONE Sodium Succinate 62.5 mg/mL 2 mL Inj IVPUSH SCH ×2 (08:51→21:57)
--- NOTE | 2016-07-18 11:00 | PCM.PNMED ---
Subjective Date of Service Jul 18, 2016 Subjective Overnight: Patient was extubated yesterday. He had increasing O2 requirements overnight, eventually needing BiPAP. Today: He was on BiPAP this morning, but mentating well and denying dyspnea. Placed him on oxymask and he maintained O2 sats well in low-mid 90s. He has no other complaints at this time and states he feels well. Exam Vital Signs Vital Sign - Last Date Time Temp Pulse Resp B/P Pulse Ox O2 Delivery O2 Flow Rate FiO2 07/18/16 10:02 96 07/18/16 09:25 82 24 135/83 45 07/18/16 07:37 CPAP/BIPAP 07/18/16 07:24 36.8 07/17/16 23:06 10.00 Intake and Output 07/17/16 07/17/16 07/18/16 Cumulative From/Thru 15:00 23:00 07:00 07/12/16 15:42 - 07/18/16 06:18 Intake Total 1154 ml 1063 ml 28950 ml Output Total 2350 ml 800 ml 91562 ml Balance -1196 ml 263 ml 30 ml Intake Oral 2790 ml IV Total 673 ml 1063 ml 8780 ml Tube Feeding 451 ml 1650 ml Tube Irrigant 30 ml 310 ml Output Urine Total 2350 ml 800 ml 87047 ml # Bowel Movements 2 Exam General: Alert, Oriented X3, Cooperative, No Acute Distress Head: Normocephalic, atraumatic. External ears normal. Eyes: PERRLA, EOMI. Anicteric sclerae. Mouth: Mouth Normal, Mucous Membranes Moist/[place] Neck: Neck supple with full range of motion. Chest & Lungs: Crackles and wheezes bilaterally. Cardiovascular: Irregularly irregular, Normal S1, Normal S2, No Murmurs/Rubs/ Gallops Abdomen: Non-tender, Non-distended, No masses, Normoactive bowel tones, Soft Musculoskeletal: Normal Range of Motion Extremities: Mild lower extremity edema bilat Neurological: Grossly Neurologically Intact, Normal Speech Lab and Diagnostics Result Diagram: 07/18/165 07/18/16314 X-Rays, CTs and MRIs X-RAY CHEST ONE VIEW, PORTABLE 07/12 IMPRESSION: Diffuse scarring/interstitial disease. No acute disease Dictated by: Jason Ann M.D. on 07/12/2016 at 17:42 Approved by: Jason Ann M.D. on 07/12/2016 at 17:44 PROCEDURE: CT ANGIO CHEST PULMONARY EMBOLISM IMPRESSION: 1. No acute pulmonary embolus. 2. Dense consolidation within the dependent lungs bilaterally suspicious for infection or aspiration. Approved by: Anai Lucas M.D. on 07/16/2016 at 9:24 Cardiac Echo Impressions Echocardiogram Report Interpretation Summary The left ventricle is normal in size. The ejection fraction is estimated to be 50-55%. There is apical hypokinesis. The right ventricular systolic pressure is estimated at 54 mmHg assuming a right atrial pressure of 15 mm Hg. Compared to the prior echo exam, there has been an increase in the severity of pulmonary hypertension. Electronically signed by: Pranav Snow on Reading Physician:07/13/2016 10:45 AM Additional Diagnostics PROCEDURE: US VENOUS LEG DUPLEX BILATERAL IMPRESSION: No evidence for deep venous thrombosis is found in the right lower extremity with this duplex venous Doppler study. No evidence for deep venous thrombosis is found in the left lower extremity with this duplex venous Doppler study. Approved by: Fito Hurd M.D. on 07/15/2016 at 17:52 DateTimeAnalyzed 04:41:00 -_ pH ____7.497 - 7.350 7.450 pCO2 ___39.1__ -mmHg 35.0 45.0 pO2 ___90.7__ -mmHg 69.0 116 HCO3- ___30.1__ -mmol/L 22.0 26.0 ABE ____6.7__ -mmol/L -2.0 2.0 tHb ___12.7__ -g/dL O2Hb ___95.7__ -% COHb ____1.1__ -% MetHb ____0.9__ -% sO2 ___97.7__ -% 25.0 FIO2 ___50.0__ -% PEEP ____8.0__ -cmH2O Set_RR ___14.0__ -b/min Vt __550.0__ -L Drawn By MM - Date/Time Notified____ 04:48:00 -_ Spontaneous_RR ___14.0__ -b/min Oxygen Device 1 VENTILATOR - Notified By MM - Notified Whom RN - B 756 -mmHg tO2 ___17.2__ -Vol% Ag test N/A - Assessment & Plan 71 year old male with Coronary artery disease, chronic diastolic heart failure, COPD, hyperlipidemia, and Hypertension who presents to [facility] emergency department complaining of persistent shortness of breathe #. Acute on Chronic Hypoxic and Hypercapnic Respiratory Failure requiring vent support. Present on admission. Improving. - Etiology likely multifactorial with HCAP, or CHF but the hypercapnea could be due to COPD exacerbation. CT scan shows bilateral aspiration pneumonia.CT angiogram PE did not show an acute pulmonary embolism. - Patient was intubated 07/15 - 07/17. Extubated yesterday. - Now on oxymask. BiPAP as needed during sleep. #. Acute on chronic diastolic congestive heart failure exacerbation. - Patient has Restrictive Cardiomyopathy. Noted increased leg edema and BNP 2888. History of CAD. Possible poor compliance with both medications and low sodium diet. Repeat echocardiography showed increase in severity of pulmonary hypertension. Serial troponins negative - Holding Aldactone 25 mg daily due to hypotension - CHF clinic referral - Furosemide 60 mg IV daily #. Possible seizure activity, acute. - Possible seizure like activity seen on 07/15/16 with loss of consciousness and flexion of both arms. Possibly secondary to hypoxia. He does not have an underlying seizure disorder. Lactic acid and CK within normal limits. EEG did not show seizure activity. CT brain without contrast showed no intracranial hemorrhage - Decreased Keppra to 500 mg BID, consider discontinuing in the near future. #. Sepsis, acute. - Met criteria with respiratory rate [address] scan is suspicious for bilateral aspiration pneumonia and patient had thick sputum tinged with blood through suction. MRSA screen positive - Started on broad spectrum meropenem and vancomycin due to patient's medication allergies. #. Possible COPD exacerbation. Present on admission. - Pt has hx of COPD, 45 pack year history. - Continuing QVar, DuoNeb treatments as needed - Solu Medrol 30 mg BID, on a taper. Next dose 30 mg daily #. Chronic Atrial fibrillation. - Was not on any anticoagulation. Rate controlled. Per discussion with patient, he is allergic to warfarin and other anticoagulants were not tried yet. - Monitor on telemetry - Resume metoprolol - Heparin subcutaneous q8h for now. Will likely require initiation of new oral anticoagulation before discharge. #. Hypertension, chronic. -Resume metoprolol and Imdur -Restarting home spironolactone today -Hold hydralazine for now due to previously low BP, will restart in near future -Continue to monitor # MAYA, improved. -Cr 0.77 today -Due to overdiuresis -Continue to monitor #. Chronic pain syndrome on narcotics - Currently, on fentanyl for intubation. #. Hyperkalemia, acute, present on admission. Improved. - Holding spironolactone and home potassium chloride - Continue to monitor Disposition: Transferred out of ICU. Will likely discharge in 2-3 days. VTE Mechanical Devices: Intermittant Pneumatic CD Resuscitation Status: CPR: Attempt Resuscitation Attending Statement The patient was seen and examined together with Dr. Judd on 07/18/2016 and I agree with the history, exam and plan as outlined in the note above. Donis Judd Jul 18, 2016 11:00 Derrell Hale MD Jul 18, 2016 15:21
--- NOTE | 2016-07-18 13:45 | NUR ---
Evaluation completed. Please go to "Notes" then click on "Assessments and Notes" (bottom left corner of screen). Then select appropriate discipline tab on top of screen.
--- NOTE | 2016-07-18 14:42 | PROG NOTE ---
[address] [address] PROGRESS NOTE PATIENT: SONNY JERNIGAN : 1945 MR#: [id number] ADMIT: 07/12/2016 JOB ID: [id number] DATE: 07/18/2016 PULMONARY CRITICAL CARE PROGRESS NOTE: The patient is a 71-year-old man admitted to the hospital initially with decompensated diastolic heart failure and transferred to the ICU with aspiration pneumonia resulting in hypoxic respiratory failure and respiratory arrest. INTERVAL HISTORY: He was extubated yesterday and has been doing well. He wore BiPAP last night. He has a CPAP at home that he did not bring in here. He has some cough. Some shortness of breath. Denies fevers, chills. REVIEW OF SYSTEMS: As above. PHYSICAL EXAMINATION: Vital signs reviewed. Temperature 37.4, pulse 82, respirations 18, BP 135/85, sats 96% on 8 L OxyMask. General: Alert, oriented, completely appropriate. Chest is clear to auscultation. LABORATORIES: Reviewed. WBC 18.1, going up. Hemoglobin of 14, platelets 268. Chemistry reviewed and within normal limits. Procalcitonin 0.08. No growth on cultures. Chest x-ray shows chronically elevated right hemidiaphragm and left lower lobe atelectasis/effusion. Intake and output: He is net 300 cc negative only. ASSESSMENT AND RECOMMENDATIONS: 1. Acute hypoxic respiratory failure. Intubated on July 15 and extubated on July 17. 2. Aspiration pneumonia versus pneumonitis. 3. Decompensated diastolic heart failure. 4. Severe sepsis. A 71-year-old man admitted to the ICU on July 15 following a respiratory arrest requiring mechanical ventilation. He has had a thorough workup including ruling out PE and the only abnormality appears to be bibasilar consolidation most likely from an aspiration event. He was extubated yesterday and is doing well, currently on OxyMask. I think he is volume overloaded and needs to get continue diuresis. Looks like he has furosemide 60 IV daily ordered. He also has Solu-Medrol 30 b.i.d. ordered. For antibiotics, he is getting meropenem and vancomycin. Since he is MRSA nasal swab positive we probably have to continue the vancomycin, but I wonder if we can narrow the meropenem to Unasyn if his sputum cultures do not have Pseudomonas in them. Since he seems to prefer having positive pressure ventilation at night, I asked his nurse to call his neighbor, Efe, and see if he would bring the patient's own CPAP over the next time he comes. He should be okay for transfer out of ICU status sometime today as long as he is stable. Dr. Pelaez takes over the pulmonary service tomorrow. Please call him for any questions or concerns. We may not plan on following the patient regularly if he is doing okay. Critical care time 40 minutes.
--- NOTE | 2016-07-18 16:49 | NUR ---
Social Work: Brief Note Shear Tender met with patient at bedside and patient stated that he wanted to cancel/void his previous DPOA and appoint Yao Walker [phone] as his new DPOA. SW gave patient a new DPOA/ADV packet. Yasmin Mead, JEANIE, ACM
--- NOTE | 2016-07-18 17:30 | NUR ---
Evaluation completed. Please go to "Notes" then click on "Assessments and Notes" (bottom left corner of screen). Then select appropriate discipline tab on top of screen.
--- NOTE | 2016-07-18 18:04 | NUR ---
respiratory/mentation/cardiac/diet Progressing. Titrated down to 5L NC while awake, & home CPAP with 5L 02 at rest. Orthopneic, denies SOA when upright. Productive cough with thick tannish sputum. No reported pain. Afib with paced beats per cardiac rehabilitation program director. Pressure stable. 60mg Lasix administered as ordered, > 3L urine out this shift. Alert and oriented x 3, with episodes of confusion. Diet advanced. Pt up with assist x 1 and walker, tolerating increased activity.
[2016-07-19] VITALS (9 sets, daily range): BP systolic 123–148; BP diastolic 70–86; PULSE 72–98; RESP 18–22; O2SAT 95–98
[2016-07-19] MEDS: Vancomycin Inj 1,000 MG in IV Premix 1 EACH IV SCH ×4 (01:36→23:46)
[2016-07-19] MEDS: Meropenem Inj 2,000 MG in 0.9% Sodium Chloride 100 ML IV SCH ×4 (01:36→23:46)
[2016-07-19] MEDS: Heparin 5,000 Unit/mL Inj SUBQ SCH ×4 (01:37→23:47)
[2016-07-19] MEDS: Sodium Chloride LOK Flush 10 mL Syringe IVFLUSH SCH ×4 (01:37→23:47)
[2016-07-19] MEDS: MeTOProlol 1 mg/mL 5 mL Inj IVPUSH SCH ×3 (03:24→16:25)
[2016-07-19 04:37] LABS: BASOPHILS % (AUTO) 0 % (0-3); EOSINOPHILS % (AUTO) 0 % (0-5); Mean Corpuscular Hemoglobin 29.1 pg (27.0-35.0); Mean Corpuscular Volume 93.4 fL (81-100); NEUTROPHILS % (AUTO) 88.3 % (40-74); Platelet Count 212 bil/L (150-400)
--- NOTE | 2016-07-19 06:05 | NUR ---
Respiratory/Mentation Pt on home CPAP w/ 4.5L O2 bleed throughout night. Pt had a couple episodes of shallow breathing during sleep where he desat to mid 80s and maintained for a short period but came back up to mid 90s w/out increased O2 flow. Pt A&Ox3, ANGEL, w/ some forgetfulness. Pt pleasant and compliant w/ care, does refuse Q2 turns but pt was able to turn self for assessments. Tele Afib 70s-80s w/ intermittent pacing. Pt denied any pain throughout night.
[2016-07-19] MEDS: Insulin LISPRO 300 Unit/3 mL Inj SUBQ SCH ×4 (08:00→20:39)
--- NOTE | 2016-07-19 08:17 | DRSVH ---
PROCEDURE: X-RAY CHEST ONE VIEW, PORTABLE ([id number]) INDICATIONS: S/p extubation, dyspnea/cough TECHNIQUE: One view of the chest was acquired. COMPARISON: [facility], CT, CT ANGIO CHEST PE, 07/16/2016, 0:19. [facility], CR, XR CHEST 1VW (PORTABLE), 07/17/2016, 5:11. [facility], CR, XR CHEST 1VW (PORTABLE), 07/18/2016, 5:01. FINDINGS: Surgical changes and devices: Stable positioning of right IJ CVL. Stable position of single chamber left cardiac pacer. Lungs and pleura: No pleural effusions or pneumothorax. Elevation of the right hemidiaphragm and pe rsistent retrocardiac airspace opacity. Mediastinum: Mediastinal contours appear normal. Heart size is normal. Bones and chest wall: No suspicious bony lesions. Overlying soft tissues appear unremarkable. IMPRESSION: Decreased lung volumes and persistent retrocardiac atelectasis versus pneumonia. Dictated by: Nakul Krishna [facility] Interpreted: Bette Moulton MD on 07/19/2016 at 8:16 Transcribed by: KUMAR on 07/19/2016 at 8:17 Approved by: Bette Moulton M.D. on 07/19/2016 at 11:14
[2016-07-19] MEDS: Famotidine Inj 20 MG in IV Premix 1 EACH IV SCH (09:13)
[2016-07-19] MEDS: Furosemide 10 mg/mL 2 mL Inj IVPUSH SCH (09:15)
[2016-07-19] MEDS: MethylprednisoLONE Sodium Succinate 62.5 mg/mL 2 mL Inj IVPUSH SCH ×2 (09:15→20:59)
--- NOTE | 2016-07-19 11:41 | PCM.PNMED ---
Subjective Date of Service Jul 19, 2016 Subjective Overnight: Patient was on home CPAP w/ 4.5L O2 throughout night. Pt had a couple episodes of shallow breathing during sleep where he desat to mid 80s and maintained for a short period but came back up to mid 90s w/out increased O2 flow. Telemetry Afib 70s-80s with intermittent V-paced beats, likely PVCs. No other acute event. Today: Patient reports to use O2 at 2L at home and CPAP at night at 2L as well. He also states to take his Lasix and Spironolactone as directed daily at home. He manages his own medication although has been forgetful per his friend. He maintains O2 sats well in mid-90s with NC at 5L. He denies any pain or dyspnea. Voiding with no difficulty, but has not had a BM yet. He has no other complaint. Exam Vital Signs Vital Sign - Last Date Time Temp Pulse Resp B/P Pulse Ox O2 Delivery O2 Flow Rate FiO2 07/19/16 11:15 93 20 95 Nasal Cannula 5.00 07/19/16 09:26 36.7 148/83 07/18/16 09:25 45 Intake and Output 07/18/16 07/18/16 07/19/16 Cumulative From/Thru 15:00 23:00 07:00 07/12/16 15:42 - 07/19/16 06:14 Intake Total 1754 ml 1760 ml 04289 ml Output Total 4750 ml 1000 ml 21054 ml Balance -2996 ml 760 ml -2206 ml Intake Oral 775 ml 770 ml 4335 ml IV Total 979 ml 990 ml 89047 ml Tube Feeding 1650 ml Tube Irrigant 310 ml Output Urine Total 4750 ml 1000 ml 28828 ml # Bowel Movements 0 2 Exam General: Alert, Cooperative, No Acute Distress Head: Normocephalic, atraumatic. External ears normal. Eyes: PERRLA, EOMI. Anicteric sclerae. Mouth: Mouth Normal, Mucous Membranes Dry. Neck: Neck supple with full range of motion. Central line in place with no discharge or bleeding. Chest & Lungs: Diffuse crackles bilaterally and mild wheezes on the left lung base. Cardiovascular: Irregularly irregular, Normal S1, Normal S2, No Murmurs/Rubs/ Gallops Abdomen: Soft. Non-tender, Non-distended, No masses, Normoactive bowel tones. Musculoskeletal: Normal Range of Motion Extremities: Trace pitting lower extremity edema bilat Neurological: Grossly Neurologically Intact, Normal Speech. IVs and Medications Medications Reviewed: Medications were reviewed in detail Lab and Diagnostics Result Diagram: 07/19/1641907/19/16419 X-Rays, CTs and MRIs X-RAY CHEST ONE VIEW, PORTABLE 07/12 IMPRESSION: Diffuse scarring/interstitial disease. No acute disease Dictated by: Jason Ann M.D. on 07/12/2016 at 17:42 Approved by: Jason Ann M.D. on 07/12/2016 at 17:44 PROCEDURE: CT ANGIO CHEST PULMONARY EMBOLISM IMPRESSION: 1. No acute pulmonary embolus. 2. Dense consolidation within the dependent lungs bilaterally suspicious for infection or aspiration. Approved by: Anai Lucas M.D. on 07/16/2016 at 9:24 Cardiac Echo Impressions Echocardiogram Report Interpretation Summary The left ventricle is normal in size. The ejection fraction is estimated to be 50-55%. There is apical hypokinesis. The right ventricular systolic pressure is estimated at 54 mmHg assuming a right atrial pressure of 15 mm Hg. Compared to the prior echo exam, there has been an increase in the severity of pulmonary hypertension. Electronically signed by: Pranav Snow on Reading Physician:07/13/2016 10:45 AM Additional Diagnostics PROCEDURE: US VENOUS LEG DUPLEX BILATERAL IMPRESSION: No evidence for deep venous thrombosis is found in the right lower extremity with this duplex venous Doppler study. No evidence for deep venous thrombosis is found in the left lower extremity with this duplex venous Doppler study. Approved by: Fito Hurd M.D. on 07/15/2016 at 17:52 DateTimeAnalyzed 04:41:00 -_ pH ____7.497 - 7.350 7.450 pCO2 ___39.1__ -mmHg 35.0 45.0 pO2 ___90.7__ -mmHg 69.0 116 HCO3- ___30.1__ -mmol/L 22.0 26.0 ABE ____6.7__ -mmol/L -2.0 2.0 tHb ___12.7__ -g/dL O2Hb ___95.7__ -% COHb ____1.1__ -% MetHb ____0.9__ -% sO2 ___97.7__ -% 25.0 FIO2 ___50.0__ -% PEEP ____8.0__ -cmH2O Set_RR ___14.0__ -b/min Vt __550.0__ -L Drawn By MM - Date/Time Notified____ 04:48:00 -_ Spontaneous_RR ___14.0__ -b/min Oxygen Device 1 VENTILATOR - Notified By MM - Notified Whom RN - B 756 -mmHg tO2 ___17.2__ -Vol% Ag test N/A - Assessment & Plan 71 year old male with Coronary artery disease, chronic diastolic heart failure, COPD, hyperlipidemia, and Hypertension who presents to [facility] emergency department complaining of persistent shortness of breathe #. Acute on Chronic Hypoxemic and Hypercapnic Respiratory Failure requiring vent support. Present on admission. Improving. - Etiology likely multifactorial with HCAP, or CHF but the hypercapnea could be due to COPD exacerbation. CT scan shows bilateral aspiration pneumonia. CT angiogram PE did not show an acute pulmonary embolism. - Patient was intubated 07/15 - 07/17. Extubated 07/17. - Now on NC at 5L. Home CPAP during sleep. - PT and swallow eval for post-extubation. #. Acute on chronic diastolic congestive heart failure exacerbation. Present on admission. Active - Patient has Restrictive Cardiomyopathy. Noted increased leg edema and BNP 2888. History of CAD. Repeat echocardiography showed EF 50-55% and increase in severity of pulmonary hypertension. Serial troponins negative. - Patient is on Lasix 60mg PO TID And Aldactone 25mg daily per [employer]. He reports uncontrolled LE edema despite being on the high dose of Lasix. - Resume Aldactone 25 mg daily. - Stop Furosemide 60mg IV due to increased BUN and patient does not appear to be fluid overload at this time. Will likely switch to Torsemide PO before discharge. Will consult with his engineering clerk (Dr. Barens). - CHF clinic referral at discharge. #. Possible seizure activity, acute. - Possible seizure like activity seen on 07/15/16 with loss of consciousness and flexion of both arms. Possibly secondary to hypoxia. He does not have an underlying seizure disorder. Lactic acid and CK within normal limits. EEG did not show seizure activity. CT brain without contrast showed no intracranial hemorrhage - Continue Keppra to 500 mg BID, consider discontinuing in the near future. #. Sepsis, acute. - Met criteria with respiratory rate [address] scan is suspicious for bilateral aspiration pneumonia and patient had thick sputum tinged with blood through suction. MRSA screen positive - Started on broad spectrum meropenem and vancomycin due to patient's medication allergies. - Will consult ID tomorrow (Dr. Bennett is out of town today). #. Possible COPD exacerbation. Present on admission. - Pt has hx of COPD, 45 pack year history. - Continuing QVar, DuoNeb treatments as needed - Solu Medrol 30 mg BID, on a taper. Next dose 20 mg daily #. Chronic Atrial fibrillation. - Was not on any anticoagulation. Rate controlled. Per discussion with patient, he is allergic to warfarin and other anticoagulants were not tried yet. - D/C telemetry - Resume metoprolol - Heparin subcutaneous q8h for now. Will likely require initiation of new oral anticoagulation before discharge. #. Hypertension, chronic. -Resume metoprolol and Imdur -Restarting home spironolactone yesterday -BP has been normal. Restart hydralazine today -Continue to monitor # MAYA, improved. -Cr 0.68, but BUN 30 (increased from 28) today. -Likely due to overdiuresis. Hold Lasix IV as above. -Continue to monitor #. Chronic pain syndrome on narcotics - Currently, on fentanyl for intubation. #. Hyperkalemia, acute, present on admission. Resolved. - Resume spironolactone but hold home potassium chloride. Will supplement as needed. - Continue to monitor Disposition: Will likely discharge in 2-3 days. Pain Evaluation: Adequate Pain Control VTE Prophylaxis: Sub-Q Heparin (Unfractionated) VTE Mechanical Devices: Intermittant Pneumatic CD Resuscitation Status: CPR: Attempt Resuscitation Attending Statement The patient was seen and examined together with Dr. Pete on 07/19/2016 and I agree with the history, exam and plan as outlined in the note above. . Earline Pete DO Jul 19, 2016 11:41 Tolu Cardoza MD Jul 20, 2016 07:43
--- NOTE | 2016-07-19 14:25 | NUR ---
NUTRITION FOLLOW-UP: Assess: The patient is a 71-year-old man admitted with decompensated diastolic heart failure, transferred to the ICU with acute respiratory failure likely due to aspiration. He experienced acute respiratory arrest 07/15 requiring intubation. He was successfully extubated 07/17. ST has advanced his diet to pureed and he has tolerated 50% of meals so far. Prior to intubation pt was tolerating 25-100% of Heart Healthy diet. PMHx: CAD w/ [place] in 1984, chronic right hemidiaphragm elevation, diastolic CHF, chronic A fib, HLD, HTN, chronic respiratory failure, acute promyelocytic leukemia, melanoma w/ removal of lesion on right face, invasive squamous cell carcinoma, chronic hypokalemia, CVA w/ right-sided hemiparesis, diverticulitis, esophageal stricture, GERD, dysphagia, right ear removal, esophageal reconstruction, right shoulder surgery, right knee surgery, multiple skin excisions of basal cell carcinoma, cholecystectomy, partial colectomy d/t acute diverticulitis LABS: Reviewed. Bun 30, [employer] .68, Glu 131, AST 71, ALT 183, Alb 3.5 MEDICATIONS: Lasix, insulin, solu-medrol, lopressor. DIET: Pureed, PO 50% GI symptoms/stool: BM x 1 (07/15). Skin integrity: Hiram 15 ANTHROPOMETRICS: Current Wt: 125kg BMI: 35.4 kg/m2 Admit Wt: 129.8 kg IBW: 86.4 kg Prior Admit Wt: 123.4 kg (wt gain likely fluid related) ESTIMATED NEEDS: BMI Calories: 0644-5575 kcal/day (20-22 kcal/kg BW) Protein: 105-130 g/day (1.2-1.5 g/kg IBW) NUTRITION DIAGNOSIS: 1) Inadequate oral intake related to inability to consume sufficient energy as evidenced by current NPO status - IMPROVING 2) Increased nutrient needs related to difficulty breathing as evidenced by worsening respiratory status and possible COPD exacerbation - PERSISTS.. INTERVENTION: 1) Continue diet per ST. MONITOR/EVALUATE: Diet advance, PO intake, labs, GI, wt, nutrition status, POC. Will continue to monitor per high nutrition risk guidelines.
--- NOTE | 2016-07-19 15:55 | PCM.PNPALL ---
Date of Service Jul 19, 2016 Date of Hospital Admission: Jul 12, 2016 at 20:11 Date of Palliative Consult: Jul 15, 2016 Palliative Care Recommendation Summary of palliative recommendations: Symptom management (Pain/other): DPOAHC- Patient very specifically names Hussain Biswas as his first DPOAHC and second is Efe Johnson--numbers as below. Forms are redone with correction to take Saravanan off -- atleast to demote to 3rd [address]. AD also completed and signed and witnessed. He directs to withdraw care if terminal or permanently unconscious. POLST also completed DNR and limited intervention. He specifically states no CPR /defib etc but it is OK to intubate if in respiratory distress and expectation is for short term course. He does not want to maintained on any machine for a long period and would prefer then to have care withdrawn and to . He also directs that he does not want a feeding tube if unable to eat. SOB- now only mild but has not been out of bed. Acknowledges feeling weak.Denies problem with aspiration at baseline. Has known COPD and is now O2 dependent-most likely relating to his smoking hx. Spiritual support: Patient was working with a roving weight gauger Hussain at [phone]. The injection maintenance technician at [facility] ([phone]), says that pt also attended [facility] recently. Problems: End of Life Preferences DNR/no feeding tube. OK short term intubation Goals of Care Hopes to go home but may need SNF for strengthening Disposition TBD Resuscitation Status Resuscitation Status: Limited Interventions Limited Interventions: Intubation w Mech Vent, BiPAP, Medications and IV Fluid Additional Information see above-- no CPR or defib POLST Updates/Changes Previous POLST?: No Artificially Admin Nutrition: No Artifical Nutrition by Tube POLST Discussed with: Patient POLST Review Outcome: New Form Completed . Advanced Care Planning Address: POLST, Code status change, Durable Power of Russian Language Professor Palliative Subjective Palliative Care Daily Responde: Patient, Family/Proxy (Hussain Estevez- now assigned the DPOAHC/also the patient's roving weight gauger) Brief History 71 yo patient followed by Dr. Hu with a hx CAD but primarily diastolic CHF and COPD on home O2/[place] on CPAP at who was initially admitted for diastolic CHF but developed acute respiratory distress thought probably due to aspiration. He was intubated for a few days and now extubated. ECHO noted worsened pulm HTN-at least moderately severe and LVEF of 55%. He is in AF on warfarin. Patient/Family Concerns Patient is now assisted by his friend and roving weight gauger Hussain Estevez. He has not done much for end of life paperwork. Attempts made to complete this-not completed or signed incorrectly. 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 He is OX2-not to specific time but knows what he has recently been through and is willing to do that again Responsive Patient Symptoms Drowsiness/Sleepiness: Mild Shortness of Breath: Moderate Delirium he acknowledges some problem with memory Objective Findings Exam Vital Sign - Last Date Time Temp Pulse Resp B/P Pulse Ox O2 Delivery O2 Flow Rate FiO2 07/19/16 13:24 98 Nasal Cannula 4.50 07/19/16 11:30 36.6 22 132/84 95 07/18/16 09:25 45 Intake and Output 07/18/16 07/18/16 07/19/16 Cumulative From/Thru 15:00 23:00 07:00 07/12/16 15:42 - 07/19/16 06:14 Intake Total 1754 ml 1760 ml 61212 ml Output Total 4750 ml 1000 ml 47416 ml Balance -2996 ml 760 ml -2206 ml Intake Oral 775 ml 770 ml 4335 ml IV Total 979 ml 990 ml 86008 ml Tube Feeding 1650 ml Tube Irrigant 310 ml Output Urine Total 4750 ml 1000 ml 66331 ml # Bowel Movements 0 2 General: Alert, Oriented, Person, Place, Situation, No acute distress HEENT: PERRLA (prosthetic right ear), Other (intubated) Heart: Normal S1, S2, No Murmurs/Rubs/Gallops Lungs: Wheezes (mild expiratory wheezes) Abdomen: Soft, Non Tender Neuro: Speech (normal cadance), Cranial Nerve 3-12 Intact, Other (CABAZON, occ pauses and will start to defer to his DPOAHC but then he is able to say what he thinks and it is consistent with what he had discussed in the past with Yao ) Extremities: Pulses Palpable x4, Warm Lab/Diagnostics Lab and Imaging results reviewed in detail in EMR. Patient/Family Conference Members Present Family Members Present patient and Yao Estevez, witness for forms Sabrina Tenorio is later in discussion Medical Team Members Present? Aysha LEONARD PC Discussion/Goals of Care Discussion see next Time spent Total time 20 minutes; >50% face to face with patient and/or family, providing counselling regarding plans and recommendations, and in care coordination with his/her medical teams. I also spent an additional 30 minutes counseling for advanced care planning with the patient/the patients family/the surrogate decision maker. For completion of POLST/DPOAHC/AD with explanations to patient and then obtaining witness to complete copies to: Broderick Hu MD, Deborah A MD Jul 19, 2016 15:55 Would patient choose quality of life over quantity of life? Would comfort care be more important than being awake and alert? If patient is no longer alert and aware because of their illness, would you choose comfort for them? Palliative Care counselled: Time spent Total time 15 minutes; >50% face to face with patient and/or family, providing counselling regarding plans and recommendations, and in care coordination with his/her medical teams. I also spent an additional 30 minutes counseling for advanced care planning with the patient/the patients family/the surrogate decision maker. For completion of POLST/DPOAHC/AD with explanations to patient and then obtaining witness to complete copies to: Broderick Hu MD, Deborah A MD Jul 19, 2016 15:55
--- NOTE | 2016-07-19 18:45 | NUR ---
BM/Activity Pt able to have a large soft brown BM today. Previous BM was on 07/15/16. Pt able to ambulate to [facility] with SBA and FWW. Slow, steady gait. See physical therapy's note.
[2016-07-19] MEDS: levETIRAcetam 500 mg Tablet PO SCH (21:01)
[2016-07-20 04:17] LABS: BASOPHILS % (AUTO) 0.1 % (0-3); EOSINOPHILS % (AUTO) 0 % (0-5); MONOCYTES % (AUTO) 6.6 % (4-12); Mean Corpuscular Hemoglobin 28.7 pg (27.0-35.0); Mean Corpuscular Volume 92.6 fL (81-100); NEUTROPHILS % (AUTO) 88.8 % (40-74); Platelet Count 198 bil/L (150-400)
--- NOTE | 2016-07-20 05:24 | NUR ---
Sleep Patient states he is having difficulty sleeping. Requests sleep aid. Melatonin administered. Room quiet with lights off. All extra monitoring wires disconnected and patient saline locked when antibiotics are complete. Patient declines music being turned on. Patient sleeps for approximately 90 minutes, wakes up and is upset because he cannot fall back asleep. MD notified and IV Benadryl ordered, given. Patient again sleeps for approximately 2 hours and is upset because he cannot fall back asleep. Patient is assisted with positioning and continues to sleep intermittently during night. States he does not have difficulty sleeping at home.
[2016-07-20] MEDS: Ondansetron 2 mg/mL 2 mL Inj IVPUSH PRN ×3 (05:32→19:55)
[2016-07-20] MEDS ORDERED: Vancomycin Serum Trough XX ONE (08:00)
[2016-07-20] MEDS: Insulin LISPRO 300 Unit/3 mL Inj SUBQ SCH ×4 (08:00→22:00)
[2016-07-20 08:30] VITALS: BP 135/83; PULSE 80; RESP 18; O2SAT 96
--- NOTE | 2016-07-20 08:33 | NUR ---
Social Work Note: Continued Discharge Planning Data& Assessment: Per MD pt is not medically ready for discharge at this time. Per PT, pt requires SNF when medically ready. SW met with pt at bedside to discuss discharge planning. Pt emphasized that he will not agree to go to SNF and will be going home with Pilar WILDER PT and RN as previously stated. Pt and SW discussed goal of ambulating with PT and his RN's as much as possible in order to regain strength prior to DC. SW left SNF list with pt in case he becomes agreeable to go to SNF as recommended by PT. Pt denies any other needs at this time. SW to continue to follow if any needs arise. Plan: Anticipated discharge home via POV with Pilar WILDER PT and RN to follow. Pt denies any other needs at this time. SW to continue to follow if any needs arise. ADDISON Londono
[2016-07-20] MEDS ORDERED: 0.9% Sodium Chloride 250 ML ONE (09:32)
[2016-07-20] MEDS: Vancomycin Inj 1,000 MG in IV Premix 1 EACH IV SCH (09:39)
[2016-07-20] MEDS: Meropenem Inj 2,000 MG in 0.9% Sodium Chloride 100 ML IV SCH (09:39)
[2016-07-20] MEDS: Sodium Chloride LOK Flush 10 mL Syringe IVFLUSH SCH ×2 (09:40→16:30)
[2016-07-20] MEDS: levETIRAcetam 500 mg Tablet PO SCH ×2 (09:40→19:56)
[2016-07-20] MEDS: MeTOProlol XL 50 mg ER24 Tablet PO SCH (09:40)
[2016-07-20] MEDS: MethylprednisoLONE Sodium Succinate 62.5 mg/mL 2 mL Inj IVPUSH SCH ×2 (09:41→19:55)
[2016-07-20] MEDS: Heparin 5,000 Unit/mL Inj SUBQ SCH ×2 (09:41→17:27)
--- NOTE | 2016-07-20 10:19 | PCM.PNMED ---
Subjective Date of Service Jul 20, 2016 Subjective Overnight: Patient complained of sleeping difficulty and was given both Melatonin and IV Benadryl, which did not seem to help much. Otherwise, no other acute event. Today: Patient reports to feel well this morning. He has been using his home CPAP for sleeping and NC during the day, both at 5L. He denies any CP, SOB, nausea, or vomiting. He reports good appetite and had a BM this morning. Exam Vital Signs Vital Sign - Last Date Time Temp Pulse Resp B/P Pulse Ox O2 Delivery O2 Flow Rate FiO2 07/20/16 08:30 36.9 80 18 135/83 96 Nasal Cannula 5.00 07/18/16 09:25 45 Intake and Output 07/19/16 07/19/16 07/20/16 Cumulative From/Thru 15:00 23:00 07:00 07/12/16 15:42 - 07/20/16 05:47 Intake Total 1537 ml 800 ml 76435 ml Output Total 4700 ml 950 ml 56163 ml Balance -3163 ml -150 ml -5519 ml Intake Oral 720 ml 300 ml 5355 ml IV Total 817 ml 500 ml 37609 ml Tube Feeding 1650 ml Tube Irrigant 310 ml Output Urine Total 4700 ml 950 ml 93318 ml # Bowel Movements 1 0 3 Exam General: Alert, Cooperative, No Acute Distress Head: Normocephalic, atraumatic. 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 Eyes: EOMI. Anicteric sclerae. Mouth: Mouth Normal, Mucous Membranes Dry. Neck: Neck supple with full range of motion. Central line in place with dry blood. Chest & Lungs: Diffuse crackles at the bilateral bases. No wheezing noted. Cardiovascular: Irregularly irregular, Normal S1, Normal S2, No Murmurs/Rubs/ Gallops Abdomen: Soft. Non-tender, Non-distended, No masses, Normoactive bowel tones. Musculoskeletal: Normal Range of Motion Extremities: Trace pitting lower extremity edema bilat Neurological: Grossly Neurologically Intact, Normal Speech. IVs and Medications Medications Reviewed: Medications were reviewed in detail Lab and Diagnostics Result Diagram: 07/20/16 0400 07/20/16 0400 X-Rays, CTs and MRIs X-RAY CHEST ONE VIEW, PORTABLE 07/12 IMPRESSION: Diffuse scarring/interstitial disease. No acute disease Dictated by: Jason Ann M.D. on 07/12/2016 at 17:42 Approved by: Jason Ann M.D. on 07/12/2016 at 17:44 PROCEDURE: CT ANGIO CHEST PULMONARY EMBOLISM IMPRESSION: 1. No acute pulmonary embolus. 2. Dense consolidation within the dependent lungs bilaterally suspicious for infection or aspiration. Approved by: Anai Lucas M.D. on 07/16/2016 at 9:24 Cardiac Echo Impressions Echocardiogram Report Interpretation Summary The left ventricle is normal in size. The ejection fraction is estimated to be 50-55%. There is apical hypokinesis. The right ventricular systolic pressure is estimated at 54 mmHg assuming a right atrial pressure of 15 mm Hg. Compared to the prior echo exam, there has been an increase in the severity of pulmonary hypertension. Electronically signed by: Pranav Snow on Reading Physician:07/13/2016 10:45 AM Additional Diagnostics PROCEDURE: US VENOUS LEG DUPLEX BILATERAL IMPRESSION: No evidence for deep venous thrombosis is found in the right lower extremity with this duplex venous Doppler study. No evidence for deep venous thrombosis is found in the left lower extremity with this duplex venous Doppler study. Approved by: Fito Hurd M.D. on 07/15/2016 at 17:52 DateTimeAnalyzed 04:41:00 -_ pH ____7.497 - 7.350 7.450 pCO2 ___39.1__ -mmHg 35.0 45.0 pO2 ___90.7__ -mmHg 69.0 116 HCO3- ___30.1__ -mmol/L 22.0 26.0 ABE ____6.7__ -mmol/L -2.0 2.0 tHb ___12.7__ -g/dL O2Hb ___95.7__ -% COHb ____1.1__ -% MetHb ____0.9__ -% sO2 ___97.7__ -% 25.0 FIO2 ___50.0__ -% PEEP ____8.0__ -cmH2O Set_RR ___14.0__ -b/min Vt __550.0__ -L Drawn By MM - Date/Time Notified____ 04:48:00 -_ Spontaneous_RR ___14.0__ -b/min Oxygen Device 1 VENTILATOR - Notified By MM - Notified Whom RN - B 756 -mmHg tO2 ___17.2__ -Vol% Ag test N/A - Assessment & Plan 71 year old male with Coronary artery disease, chronic diastolic heart failure, COPD, hyperlipidemia, and Hypertension who presents to [facility] emergency department complaining of persistent shortness of breathe #. Acute on Chronic Hypoxemic and Hypercapnic Respiratory Failure requiring vent support. Present on admission. Improving. - Etiology likely multifactorial with HCAP, or CHF but the hypercapnea could be due to COPD exacerbation. CT scan shows bilateral aspiration pneumonia. CT angiogram PE did not show an acute pulmonary embolism. - Patient was intubated 07/15 - 07/17. Extubated 07/17. - Now on NC at 5L. Home CPAP during sleep. - Per speech's recommendation, patient had a modified barium study today. - Patient should be on dysphagia mechanical diet. - Continue PT. - Attempted to call Dr. Garland (patient's emergency medical service manager), but he was not in the office until next Tuesday. Patient has an appointment with him on Tuesday. #. Acute on chronic diastolic congestive heart failure exacerbation. Present on admission. Active. - Patient has Restrictive Cardiomyopathy. Noted increased leg edema and BNP 2888. History of CAD. Repeat echocardiography showed EF 50-55% and increase in severity of pulmonary hypertension. Serial troponins negative. - Patient is on Lasix 60mg PO TID And Aldactone 25mg daily per [employer]. He reports uncontrolled LE edema despite being on the high dose of Lasix. - Continue Aldactone 25 mg daily. - Furosemide 60mg IV was stopped yesterday 07/19 due to increased BUN and patient does not appear to be fluid overload at this time. Called the patient's editor sound (Dr. Barnes) and he is ok with switching to Torsemide 20mg BID. - CHF clinic referral at discharge. #. Possible seizure activity, resolved. - Possible seizure like activity seen on 07/15/16 with loss of consciousness and flexion of both arms. Possibly secondary to hypoxia. He does not have an underlying seizure disorder. Lactic acid and CK within normal limits. EEG did not show seizure activity. CT brain without contrast showed no intracranial hemorrhage - Continue Keppra to 500 mg BID, consider weaning off tomorrow. #. Sepsis, present on admission, resolved. - Met criteria with respiratory rate [address] scan is suspicious for bilateral aspiration pneumonia and patient had thick sputum tinged with blood through suction. MRSA screen positive - Questionable pneumonia, but was started on broad spectrum meropenem and vancomycin due to patient's medication allergies. Patient is on day #6 of antibiotics. - Procalcitonin level has been less than 0.25, with the most recent one of 0.08 on 07/18. - Appreciate ID consultation. Suspect that the chest x-ray infiltrates we are likely due to atelectasis rather than true pulmonary infection. Both antibiotics were discontinued today. #. Possible COPD exacerbation. Present on admission. - Pt has hx of COPD, 45 pack year history. - Continuing QVar, DuoNeb treatments as needed - Solu Medrol 30 mg BID, on a taper. Next dose 20 mg tomorrow. #. Chronic Atrial fibrillation, stable. - Was not on any anticoagulation. Rate controlled. Per discussion with patient, he is allergic to warfarin and other anticoagulants were not tried yet. - Patient's afib has been rate controlled thus telemetry was discontinued on 07/19. - Continue metoprolol - Heparin subcutaneous q8h for now. Will likely switch to oral anticoagulation tomorrow. #. Hypertension, chronic. -Resume metoprolol and Imdur -Restarted home spironolactone on 07/18. -BP has been normal. -Continue to monitor # MAYA, improved. -Cr 0.64, BUN 29 -Likely due to overdiuresis. IV Lasix was hold for 2 days. Will start Torsemide 20mg BID tomorrow. -Continue to monitor #. Chronic pain syndrome on narcotics - Currently, on fentanyl PRN. - Consider switching to PO home meds tomorrow (Tramadol and Gabapentin). #. Hyperkalemia, acute, present on admission. Resolved. - Resume spironolactone but hold home potassium chloride. Will supplement as needed. - Continue to monitor Disposition: Will likely discharge in 2-3 days. Pain Evaluation: Adequate Pain Control VTE Prophylaxis: Sub-Q Heparin (Unfractionated) VTE Mechanical Devices: Intermittant Pneumatic CD Resuscitation Status: Limited Interventions Limited Interventions: Intubation w Mech Vent, BiPAP, Medications and IV Fluid Attending Statement The patient was seen and examined together with Dr. Pete on 07/20/2016 and I agree with the history, exam and plan as outlined in the note above. . Earline Pete DO Jul 20, 2016 10:19 Tolu Cardoza MD Jul 22, 2016 07:38
--- NOTE | 2016-07-20 14:47 | CONS ---
[address] [address] CONSULTATION REPORT PATIENT: SONNY JERNIGAN : 1945 MR#: [id number] ADMIT: 07/12/2016 JOB ID: [id number] DATE OF SERVICE: 07/20/2016 INFECTIOUS DISEASE CONSULTATION: I thank Dr. Cardoza for this timely consult. REASON FOR CONSULT: Possible MRSA and/or MSSA pneumonia in a patient with worsening COPD and congestive heart failure. HISTORY OF PRESENT ILLNESS: The patient is an unfortunate 71-year-old gentleman with a truly extraordinary list of medical problems which revolve around severe COPD, organic heart disease, and recurrent skin cancers. He also has a history of promyelocytic leukemia in remission. He was admitted to this facility back on July 13 when his chronic baseline shortness of breath and lower extremity edema got out of control. At the time of admission back on the , the patient actually denied having any fevers, chills, or significant sputum production. He worsened, however, early in his hospital stay and eventually required intubation for several days before being extubated on July 17. During the time he was here in the ICU and intubated there were questions about whether or not he may have a pulmonary infiltrate and for that reason he was treated with broad-spectrum antibiotics which now include meropenem and vanco, both in their sixth day. Cultures have been confusing as a nasal swab yielded MRSA at the same time the sputum grew MSSA back on July 15. ID consultation is requested at this time regarding antibiotic management. The patient tells me that prior to admission he was in his usual state of fragilely compensated health but over a period of days became gradually more short of breath. He notes that his shortness of breath has actually been getting worse for months, but was especially severe in the week leading up to admission. There was associated headaches, which are a recurrent problem for him, and a bit of nausea, but no significant sputum production beyond normal. In addition, he reports he really did not have much in the way of cough at all in association with this shortness of breath and that he did not have any fevers, chills, or sweats. He is chronically home O2 dependent and takes a wide variety of medications for his multiple underlying problems. The patient also notes that he has a chronic esophageal problem which has required endoscopy in the past and that he has been having both dysphagia and odynophagia leading up to his admission on July 13, though the main reason for admission was just progressive shortness of breath. PAST MEDICAL HISTORY: 1. COPD, for which he is home O2 dependent. 2. Organic heart disease. a. Chronic AFIB on Coumadin. b. Coronary artery disease. c. Restrictive cardiomyopathy with CHF. d. Pulmonary hypertension. e. Status post pacer placement February 2016. 3. Hypertension. 4. Hyperlipidemia. 5. 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 6. 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 7. Squamous cell carcinoma and melanoma, which have required multiple surgeries including the complete removal of his right ear. 8. Cerebrovascular accident with right hemiparesis. 9. Esophageal strictures requiring dilatation. 10. GERD. 11. Diverticulitis. SOCIAL HISTORY: The patient is an ex-smoker who quit a couple of decades ago. He does not seem to drink any significant amount of alcohol. 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 He served in the [employer] for three years but never was deployed overseas and he has never lived or traveled overseas. FAMILY HISTORY: Negative for TB in his parents and siblings. REVIEW OF SYSTEMS: Was done in its entirety. The patient notes he has occasional headaches which seem to be worse lately. He denies any new visual complaints. He has many skin cancers and has had his right ear completely removed because of skin cancer, though it has not been a problem recently. He denies any stiff neck. He has no sores in the mouth. He does have both odynophagia and dysphagia and underwent a barium swallow just before I saw him today to evaluate these problems. He has a chronic cough which is nonproductive and is really at baseline at this point. He notes that when he eats beef and potatoes he has a productive cough but this only occurs with this dietary maneuver. He is always short of breath, both in the day and at night, and it is worse with exertion. It is about at baseline, however, as far as he can tell following his extubation three days ago. He has occasional nausea, currently without vomiting or diarrhea. He does not use a Paul catheter at home and denies urgency, frequency, or dysuria, but when he was admitted here with a number of concerns about heart failure a Paul was placed and that remains in place at this point, so he has no urinary symptoms now. He notes that he has chronic severe bilateral edema and that has diminished greatly during his hospital stay. He has no particular new pain in any of his joints. He has chronic right-sided weakness following his stroke but he is able to ambulate and states he can get around at home with just a cane, or on bad days he sometimes has to use a walker. The remainder of the review of systems was negative. PHYSICAL EXAMINATION: Reveals an afebrile gentleman temperature 36.9, pulse 80, respiratory rate 18, blood pressure 135/83. He is saturating well on 5 L. Examination of the patient reveals that he is a large obese gentleman, 188 cm tall, BMI 35.4. He is sitting on the side of the bed and appears moderately short of breath. Examination is immediately notable for the fact he has no right ear and it looks like there has also been some surgery on the left ear, though it certainly appears relatively normal. He has no evidence of temporal wasting or head trauma. His eyes are notable for somewhat pale conjunctivae bilaterally. No scleral icterus is present. The nose appears normal. Oral cavity without thrush or pharyngitis. No obvious masses or erosions seen in the oral cavity. Neck relatively supple. He does have some degree of jugular venous distention above the level of normal. His neck is without adenopathy at this point. Lungs with decreased breath sounds at the right base and a few crackles at both bases. The cardiac tones are currently irregular rate and rhythm, without significant murmur or gallop. The patient's abdomen is obese, soft, and without organomegaly. A Paul catheter is present. There is no suprapubic distention. He has numerous scars related to his surgeries for melanoma as well as squamous cell carcinoma. As noted, he has no right ear. The patient's lower extremity has just a trace of edema which is dramatically better apparently than when he was admitted. He does have mild venous stasis changes bilaterally. He has mild right-sided weakness consistent with his history of CVA and right hemiparesis but it is sufficiently mild that the patient can walk, and in fact was walking a little bit around the room with a walker prior to my going in to see him. The patient's back was examined. It is essentially nontender and without significant scoliosis. There is no skin breakdown noted and no skin rash is noted. LABORATORIES: Include white count of 13,200, platelet count 198,000. His crit is 45. Differential on his white count is basically normal except for a mild neutrophil predominance. Creatinine 0.64. AST is 29, ALT 155, alk phos 47, albumin 3.2. We have 6 procalcitonin levels all less than 0.18. Urinalysis without white cells or red cells. The patient has had vanco levels around 15 over the past six days. Micro includes a sputum sample that was obtained when he was intubated that had moderate polys and mixed petr but grew heavy growth of MSSA. Interestingly, a nasal MRSA swab done on the same day was positive this was done at exactly the same time and raises a question about a false positive on the MRSA swab. Blood cultures are negative. Respiratory viral PCR negative. Chest x-rays were carefully reviewed. The patient has had seven or eight chest x-rays done over the last week. His admission chest x-ray was read as scarring without abnormality on the when he hit the ED. Subsequently he had a CT angiogram on July 16 while he was intubated which showed dense consolidation in the lungs consistent with infection or aspiration. Subsequent to extubation yesterday another chest x-ray was done which shows persistent retrocardiac atelectasis or pneumonia. IMPRESSION: There are a couple of confusing things with this complex patient. One is that shortly after intubation a MRSA swab was done and within the same hour sputum was obtained. The sputum grew a heavy growth of MSSA which may have played some role perhaps in his pulmonary process, but the MRSA screen was positive. I suspect that the positive MRSA screen represents a false positive, which can occasionally occur with our detection system. Because of this the patient has been treated with vancomycin for the past six days, but I suspect that was not necessary. The bigger question here is whether he has any ongoing bacterial pulmonary infection. The patient has six procalcitonin levels less than 0.25, and several of these are less than 0.1, which argues strongly against bacterial pneumonia. I strongly suspect that the chest x-ray infiltrates we see are atelectasis rather than true pulmonary infection in this complicated patient and that his decline and intubation was related to congestive heart failure. He reports increasing shortness of breath for at least a week prior to his admission in concert with increasing swelling of his lower extremities. His respiratory rate status is now much better and his extremity edema has resolved. I think the worsening congestive heart failure perhaps combined with the chronic obstructive pulmonary disease exacerbation better explains what is going on than a severe aspiration type process. RECOMMENDATIONS: 1. I would discontinue both the vancomycin and meropenem at this time. 2. A MRSA swab has been done and will be sent to the lab as we now have online our new PCR machine for rapid detection of MRSA in nasal swabs. He will be one of the 1st patients to be tested with this technology, which we are still validating, but I think it will show that he is not colonized with MRSA and will justify the decision to drop the vancomycin. 3. Whether the patient had an aspiration pneumonia is hard to tell, but he has already received six full days of meropenem which would be tremendous treatment for aspiration pneumonia and/or COPD exacerbation caused by bacterial infection. 4. This case was discussed in person with the nursing team, microbiology, the ICU team, and Dr. Cardoza. 5. All x-rays were visualized.
--- NOTE | 2016-07-20 15:54 | DRSVH ---
PROCEDURE: X-RAY BARIUM SWALLOW WITH FOOD & VIDEOGRAPHY ([id number]) INDICATIONS: ASPIRATION TECHNIQUE: Examination was conducted in conjunction with speech pathology per standard protocol. In the lateral projection, filming was performed of the patient swallowing. AP projection filming may also be performed with patient swallowing. COMPARISON: [facility], , BARIUM SWALLOW/FOOD & VIDEO, 11/30/2012, 13:11. FINDINGS: Function: The oral preparatory phase appears normal, with proper containment. The subsequent oral pr opulsive phase, pharyngeal phase, and esophageal phase of swallowing also appear normal with all prof fered substances. Laryngeal penetration noted.. No pathologic vallecular pooling. The attending ph ysician was personally present in the room during the examination. Morphology: No cricopharyngeal bar is identified. No cervical esophageal webs. No Zenker's diverti culum. No strictures. IMPRESSION: Laryngeal penetration on multiple occasions. Dictated by: Nakul Krishna [facility] Interpreted: Gwen Murphy MD on 07/20/2016 at 15:53 Transcribed by: DANYELLE on 07/20/2016 at 15:53 Approved by: Gwen Murphy MD, PhD on 07/21/2016 at 11:04
[2016-07-20 16:06] VITALS: BP 132/80; PULSE 77; RESP 18; O2SAT 99
--- NOTE | 2016-07-20 18:17 | ST BAR ---
[address] [address] SPEECH BARIUM SWALLOW STUDY PATIENT: SONNY JERNIGAN : 1945 MR#: [id number] ADMIT: 07/12/2016 JOB ID: [id number] DATE OF SERVICE: 07/20/2016 THERAPIST: Katelyn Smith MA CCC-LEAD PL SQL DEVELOPER REFERRING PHYSICIAN: Marilyn Pete MD PRIMARY CARE PHYSICIAN: Broderick Hu MD [facility] [id number] G CODES AND MODIFIERS: 8996 CJ, 8997 CJ. PRIMARY DIAGNOSIS: Possible methicillin-resistant Staphylococcus aureus and/or methicillin-sensitive Staphylococcus aureus pneumonia in a patient with worsening chronic obstructive pulmonary disease and congestive heart failure. TREATMENT DIAGNOSIS: Dysphagia. VISITS FROM START OF CARE: One. Further treatment is recommended at this time both while the patient is admitted to [facility] and upon discharge. SHORT-TERM GOALS: 1. The patient will complete a laryngeal exercise program in order to decrease risk for significant laryngeal penetration. 2. The patient will tolerate dysphagia mechanical textures and thin liquids with no signs or symptoms of aspiration. 3. The patient will independently compensate for his dysphagia by utilizing compensatory strategies. LONG-TERM GOAL: Least restrictive diet at time of discharge. TREATMENT PLAN: Laryngeal exercise program, patient and caregiver information as well as some diet texture modification. CURRENT RELEVANT HISTORY: This is a very kind 71-year-old man with an extremely complex medical history including COPD, heart disease, chronic AFib, pulmonary hypertension, cardiomyopathy with CHF, hypertension, squamous cell carcinoma and melanoma, esophageal strictures requiring dilation, GERD and diverticulitis. The patient also has a remote history of a cerebrovascular accident with right hemiparesis. The patient has had an extremely long and complex hospital stay which required several days of mechanical ventilation with a question of pulmonary infection which is being investigated for community-acquired versus aspiration-type pneumonia. The most recent infectious disease note suspects worsening congestive heart failure that may be combined with COPD exacerbation as an explanation for the pulmonary processes we are seeing rather than a true aspiration-type pneumonia. The current study is being completed today because the patient reports chronic dysphagia, some odynophagia and has demonstrated some difficulty at clinical bedside swallow evaluation. MEDICAL NECESSITY: Aspiration risk. PRIOR LEVEL OF FUNCTION: Unknown and it is noted the patient lives by himself in [place]. PREVIOUS THERAPY: None. PRIOR HOSPITALIZATIONS: Unknown. BASELINE TEST MEASURES: The patient was seated in the barium swallow chair for the evaluation and was viewed laterally. P.o. trials of barium in the following consistencies were given: Thin, nectar thick, pureed, dysphagia mechanical, thin liquids with a straw and a barium tablet with water. Oral motor evaluation revealed full dentures. Palatal elevation was symmetrical. Cough was within functional limits. Oral phase: Labial seal was complete. Oral prep was outside of functional limits given poor containment of the bolus per base of tongue and soft palate pharyngeal wall closure. Mastication was within functional limits on dysphagia mechanical textures, however, the patient was reluctant to trial crackers even when softened in pudding. Pharyngeal phase: Premature spillage occurred to the level of the laryngeal vestibule and the piriform sinus on all liquid trials. The patient demonstrated appropriate airway protection and vocal fold adduction as no aspiration was viewed in the current study. Penetration occurred due to weakness as well as poor epiglottic inversion. Epiglottic inversion was slow and incomplete. Swallow reflex was significantly delayed on all trials and cues for hard fast swallow did not improve the timing of swallow. Decrease hyoid excursion was noted and laryngeal elevation and excursion was reduced as well. Esophageal phase: Could not be fully viewed on the current study. Upper esophageal stricture appeared to be opening within functional limits. EVALUATION RESULTS: This is a very pleasant, 71-year-old man with a very complex medical history who was evaluated today due to chronic dysphagia, reports of odynophagia and some initial concern for aspiration pneumonia. The patient presented today with a functional swallow, however, he is at high risk for an aspiration event given the significant delay in his swallow, poor epiglottic inversion and decreased pharyngeal sensation. The patient demonstrated significant premature spillage to the piriform sinus and to the level of the vocal folds on all liquid trials. Spillage filled up his pharyngeal cavity prior to swallow initiation. That being said, the patient demonstrated appropriate airway protection and no aspiration was viewed in the current study. All residual material cleared the laryngeal vestibule after the swallow. I would like this gentleman to continue eating his least restrictive diet, however, it is important that he begin a laryngeal strengthening program in order to decrease his aspiration risk. It is recommended he begin completing both the Shaker and Vince exercise and Vince maneuver two times daily at this point in time. These strategies were introduced to the patient today, however, additional followup is needed due to some confusion with completing exercises independently. Speech therapy would be beneficial to continue upon discharge in order to support safe swallow diet textures at home as well as continued laryngeal exercise program to decrease risk for aspiration. These results were discussed with the RN at completion of the evaluation as well as with the patient. I will continue to follow the patient while they are admitted and will fax an order to the PCP for discharge. Thank you very much for this consult. Addendum: Pt was seen after evaluation on 07/20/16 and 07/21/16 to practice compensatory strategies and complete laryngeal exercise program. Pt did not demonstrate ability to compete laryngeal exercises, nor did he recall or re- explain strategies appropriately. For this reason, diet recommendation is altered to dysphagia mechanical textures and honey thick liquids, as trials with high viscosity (pudding, applesauce, puree) were swallowed without laryngeal penetration and more timely swallow initiation. Thickening was modeled , discussed, and practiced with pt, who reported gratitude and enjoyment of thick liquids. Discussed with pt, RN, and MD. Please see inpatient daily assessment note from 07/21/16 for more information. MTDD
--- NOTE | 2016-07-20 18:21 | PCM.PALLBR ---
Palliative Care Recommendation Summary of palliative recommendations: POLST/CODE STATUS/advanced directive/DPOAHC-have all been completed this visit. He is quite adamant regarding his independence and he defines this as paramount. Goals of care have been established and he will be going home with home health. Palliative will sign off at this time. These contact us if further assistance is needed Symptom management (Pain/other): DPOAHC- Patient very specifically names Hussain Biswas as his first DPOAHC and second is Efe Johnson--numbers as below. Forms are redone with correction to take Saravanan off -- atleast to demote to 3rd place. AD also completed and signed and witnessed. He directs to withdraw care if terminal or permanently unconscious. POLST also completed DNR and limited intervention. He specifically states no CPR /defib etc but it is OK to intubate if in respiratory distress and expectation is for short term course. He does not want to maintained on any machine for a long period and would prefer then to have care withdrawn and to . He also directs that he does not want a feeding tube if unable to eat. SOB- now only mild but has not been out of bed. Acknowledges feeling weak.Denies problem with aspiration at baseline. Has known COPD and is now O2 dependent-most likely relating to his smoking hx. Spiritual support: Patient was working with a cray fishing hand Hussain at [phone]. The rail maintenance worker at [facility] ([phone]), says that pt also attended [facility] recently. Problems: End of Life Preferences DNR/no feeding tube. OK short term intubation Goals of Care Hopes to go home but may need SNF for strengthening Disposition He is quite determined to go home with the assistance of neighbors and home health Resuscitation Status Resuscitation Status: DNR/DNI:Do Not Resuscitate/Intubate Limited Interventions: Intubation w Mech Vent, BiPAP, Medications and IV Fluid POLST Updates/Changes Previous POLST?: No Artificially Admin Nutrition: No Artifical Nutrition by Tube POLST Discussed with: Patient POLST Review Outcome: New Form Completed Total time 20 minutes; >50% face to face with patient and/or family, providing counselling regarding plans and recommendations, and in care coordination with his/her medical teams. I also spent an additional [ ] minutes counseling for advanced care planning with the patient/the patients family/the surrogate decision maker. copies to: Broderick Hu MD Palliative Brief Note Date of Service Jul 20, 2016 . 71 yo patient with known diastolic CHF and COPD with probable abrupt respiratory distress with presumption of aspiration. He required intubation for a number of days. he has since been extubated. He has been progressing well is up in a chair and having a snack. He has a booming voice is moderately hard of hearing. He is OX2-didn't ask date. He is adamant that he will never go to SNF-stating recurrently they have "tried to kill him" He states his plan is to go home with the assistance of neighbors and [facility] Jory Sutton MD Jul 20, 2016 18:21
--- NOTE | 2016-07-20 18:28 | NUR ---
Activity: Pt has is able to sit at EOB or in chair for meals and ambulating to BR with SBA/1PA. Tolerating increased activity without report of CP, SOB or dizziness. SpO2: mid to high 90's on 5L NC. Paul catheter DC'd at 1745.
[2016-07-20 20:00] VITALS: BP 111/68; PULSE 75; RESP 16; O2SAT 99
[2016-07-21] MEDS: Sodium Chloride LOK Flush 10 mL Syringe IVFLUSH SCH ×3 (00:30→16:30)
[2016-07-21] MEDS: Heparin 5,000 Unit/mL Inj SUBQ SCH ×3 (00:30→18:38)
[2016-07-21 01:26] VITALS: BP 112/68; PULSE 77; RESP 16; O2SAT 98
[2016-07-21 03:32] LABS: BASOPHILS % (AUTO) 0.1 % (0-3); EOSINOPHILS % (AUTO) 0 % (0-5); MONOCYTES % (AUTO) 5.1 % (4-12); Mean Corpuscular Hemoglobin 29.1 pg (27.0-35.0); Mean Corpuscular Volume 91.1 fL (81-100); NEUTROPHILS % (AUTO) 89.8 % (40-74); Platelet Count 199 bil/L (150-400)
--- NOTE | 2016-07-21 04:22 | NUR ---
Respiratory, activity Vs as noted. Sats on 5l nasal canula mid 90s. Using home cpap with 5l oxygen when asleep. Tolerating well. Up to bedside to void q2-3h. Tolerated well. Up to chair during the evening. Complained of inability to sleep. Melatonin given with minimal effect. Awake most of the night.
[2016-07-21 05:08] VITALS: BP 125/72; PULSE 72; RESP 16; O2SAT 98
[2016-07-21 07:52] VITALS: BP 145/81; PULSE 78; RESP 18; O2SAT 97
[2016-07-21] MEDS: Insulin LISPRO 300 Unit/3 mL Inj SUBQ SCH ×3 (07:56→17:30)
[2016-07-21] MEDS: MeTOProlol XL 50 mg ER24 Tablet PO SCH (07:58)
[2016-07-21] MEDS: MethylprednisoLONE Sodium Succinate 62.5 mg/mL 2 mL Inj IVPUSH SCH ×2 (07:58→20:01)
[2016-07-21] MEDS: levETIRAcetam 500 mg Tablet PO SCH (07:59)
--- NOTE | 2016-07-21 09:30 | PROG NOTE ---
[address] [address] PROGRESS NOTE PATIENT: SONNY JERNIGAN : 1945 MR#: [id number] ADMIT: 07/12/2016 JOB ID: [id number] DATE: 07/21/2016 INFECTIOUS DISEASE FOLLOWUP NOTE: REASON FOR FOLLOWUP: Aspiration pneumonia involving MSSA. INTERVAL HISTORY: Yesterday when I saw the patient in consult, we had recommended stopping his broad-spectrum antibiotics including vancomycin and meropenem, as it appeared he had received a reasonable course of therapy for possible aspiration pneumonia involving Staph aureus. We were also confused because his nasal MRSA swab was positive but a simultaneous sputum grew only MSSA, and we asked the Micro Lab to resolve this conflict. The patient tells me this morning he is feeling "great." He says he has no fevers, no chills, no cough, no shortness of breath. No abdominal pain, nausea, vomiting, or diarrhea. He is sitting up, looking very comfortable in his chair and preparing to eat a large breakfast. PHYSICAL EXAMINATION: Reveals an afebrile gentleman, temperature 36.4. He has been afebrile now really throughout his hospital stay. Pulse 78, respiratory rate 18, blood pressure 145/81, without vasopressor agents. He is saturating well on 5 L. His mental status seems clear today. The oral cavity negative. No conjunctivitis is noted. Lungs quite clear posteriorly, as the patient sits up in a chair and takes slow deep breaths for me. Cardiac tones: Regular rate and rhythm without any murmur. Abdomen slightly distended, but soft and nontender. No skin rash. LABORATORIES: Include a white count which is consistently 14,000, platelet count 199. Diff includes 90% segs. Creatinine is 0.74 and stable. ALT remains elevated at 118. AST is normal. Procalcitonin was last done a couple of days ago and was 0.08. Vancomycin trough is 17. Micro studies include negative blood cultures from the and the of this month. A nasal screen was initially reported as positive for MRSA but, as we suspected, that was falsely positive, and it turns out his nasal smear was MSSA not MRSA. This would goes along with the sputum which was done when he was first intubated back on July 15 and grew MSSA. IMAGING: Modified barium swallow done yesterday shows laryngeal penetration. Chest x-ray done July 19 shows a retrocardiac atelectasis and/or pneumonia. IMPRESSION: It would appear this patient has suffered some degree of aspiration and one of the organisms involved in this aspiration process was methicillin-sensitive Staphylococcus aureus but not methicillin-resistant Staphylococcus aureus. At this point, he seems dramatically improved. I think we can continue to watch the patient off antibiotics and start to prepare him for discharge. It is notable that he did not or ever have methicillin-resistant Staphylococcus aureus, and this was an error because of the selective media that we use in the Micro Lab which occasionally labels methicillin-sensitive Staphylococcus aureus as methicillin-resistant Staphylococcus aureus, and this was corrected this morning. RECOMMENDATIONS: 1. Will discontinue all isolation, and I have written that order. 2. I would continue to watch the patient off antibiotics but I think he is through the worst of this. 3. I agree with the recommendations by the speech therapist regarding efforts to prevent him from suffering additional aspiration events. Thank you very much, and Infectious Disease will be signing off at this time.
--- NOTE | 2016-07-21 14:36 | DRSVH ---
PROCEDURE: CT BRAIN WITHOUT CONTRAST ([id number]) INDICATIONS: seizure TECHNIQUE: Noncontrast 4.5 mm thick angled axial sections acquired from the foramen magnum to the vertex, with c oronal reformats. COMPARISON: [facility], CT, BRAIN W/O CONTRAST, 10/15/2014, 16:02. [facility], CT, BRAIN W/O CONTRAST, 05/26/2008, 12:14. FINDINGS: Image quality: Excellent. CSF spaces: Basal cisterns are patent. No extra-axial fluid collections. The ventricles are symmet kennedy in size and shape. Brain: No intracranial bleeds or masses. There is cerebral volume loss for age, with resultant vent ricular and sulcal prominence. There are periventricular and deep white matter chronic small vessel ischemic changes. There is intracranial internal carotid artery atherosclerosis. Skull and face: Calvarium and visualized facial bones appear intact, without suspicious lesions. Sinuses: Visualized sinuses and mastoids are clear. IMPRESSION: No acute intracranial abnormality. No explanation for seizure. Dictated by: Aarti Flood M.D. on 07/15/2016 at 8:25 Approved by: Aarti Flood M.D. on 07/15/2016 at 8:26
--- NOTE | 2016-07-21 15:18 | PCM.DIMED ---
Earline Pete DO 07/21/16 1513: Discharge Instructions Date of Service Jul 21, 2016 Dates of Hospitalization Jul 12, 2016 at 20:11 Discharge Diagnosis Discharge Diagnosis 1. Acute on Chronic Hypoxemic and Hypercapnic Respiratory Failure requiring vent support. Present on admission. Improving. 2. Acute on chronic diastolic congestive heart failure exacerbation. Present on admission. Improving. 3. Possible seizure activity, resolved. 4. Sepsis, present on admission, resolved. 5. Possible COPD exacerbation. Present on admission. Improved. 6. Chronic Atrial fibrillation, stable. 7. Hypertension, chronic, stable. 8 MAYA, improved. 9. Chronic pain syndrome on narcotics. Stable. 10. Hyperkalemia, acute, present on admission. Resolved. Medication Instructions We made a few changes to your medication list: - Please stop taking the Lasix and start taking the Torsemide 20mg as directed. - We decreased the Metoprolol from 100mg to 50mg daily. - Stop the Hydralazine since your BP has been under control without it. - Take 2 tablets of Prednisone 10mg tomorrow, then decrease to 1 tablet daily until finished. - Stop taking the Potassium. - We gave you a coupon for a-month trial of Eliquis. You can bring the coupon to the pharmacy to get your medication. Please follow up with your PCP to switch you to a different anticoagulation (blood thinner) medication before you are out of the Eliquis. Diet Heart Healthy Activity Home Health Phyical Therapy Call your provider Fever or Chills, Shortness of breath, Chest pain, Vomitting, Weakness ( unilateral) Patient Instructions - If you experience any worsening symptoms, such as short of breath, chest pain , weakness, change in mental status, headache, nausea, or vomiting, please go to the ER. - If you have a fall at home, you also need to go to the ER. You are qualified for residential for rehabilitation, but you declined to go. Please be careful while ambulating. - Take your medications as directed. - Follow the Speech therapist's dietary advices. You need to be on a honey- thick diet until told other tucker by the home health ST. - Follow up with home health ST, OT, PT, and Vendor Analyst. - You need to have a CMP and CBC with diff in 1 week. Follow-up plan - You need to follow up with your PCP (Dr. Hu) in 1 week. We will help you make an appointment before the discharge today. - Follow up with your child day care center worker (Dr. Garland) on Friday 07/28. You have this appointment already. - Follow up with your director validation (Dr. Barnes) in 2 weeks. - You need home health PT, OT, ST, and social sciences instructor follow up. Follow-up Provider: Broderick Hu MD Follow-up with PCP in: 1 week Provider: Barak Garland MD Follow-up in: 1 week Tolu Cardoza MD 07/22/16 0738: Discharge Instructions Attending's Statement The patient was seen and examined together with Dr. Pete on 07/21/2016 and I agree with the history, exam and plan as outlined in the note above. . Earline Pete DO Jul 21, 2016 15:13 Tolu Cardoza MD Jul 22, 2016 07:38
--- NOTE | 2016-07-21 15:24 | NUR ---
Social Work Note: Continued Discharge Planning Data& Assessment: SW spoke with PT who explained pt may be changing his mind about his willingness to go to SNF at time of discharge. SW met with pt at bedside to discuss discharge planning. Pt explained to SW that he is still determined to discharge home with [facility], however he was interested in more direction and suggestions on meal planning surrounding his new diet. SW informed MD. Pt denies any other needs at this time. Pt friend Efe transporting pt home when medically ready. [facility] WILDER obtained F2F. No other discharge needs identified. SW to continue to follow if any needs arise. Plan: Anticipated discharge home with [facility] PT, RN, ST, SW. when medically ready via POV. Pt denies any other needs at this time. Pt friend Efe transporting pt home when medically ready. SW to continue to follow if any needs arise. ADDISON Londono
[2016-07-21 15:37] VITALS: BP 130/76; PULSE 74; RESP 18; O2SAT 98
[2016-07-21] MEDS ORDERED: TORS20TA PO (16:30)
[2016-07-21] MEDS ORDERED: APIX5TAB PO (16:30)
[2016-07-21] MEDS ORDERED: METO-272 PO (16:30)
[2016-07-21] MEDS ORDERED: PRE10 PO (16:30)
--- NOTE | 2016-07-21 17:59 | NUR ---
O2 requirement Reduce O2 to 2L nc, pt tolerated well, SpO2 above 93%. Pt denied SOB through the day. Able to work with physical therapy with SpO2 sustaining above 90%. See Physical Therapy's note.
--- NOTE | 2016-07-21 19:37 | PCM.DC.MED ---
Discharge Summary Date of Service Jul 21, 2016 Dates of Hospitalization Date of Hospital Admission Jul 12, 2016 at 20:11 Date of Discharge: Jul 21, 2016 Providers: Admitting Physician: Kd Ramirez MD Primary Care Physician: Broderick Hu MD Attending Physician: Kd Ramirez MD Diagnosis at Time of Discharge Diagnosis at Time of Discharge 1. Acute on Chronic Hypoxemic and Hypercapnic Respiratory Failure requiring vent support. Present on admission. Improving. 2. Acute on chronic diastolic congestive heart failure exacerbation. Present on admission. Improving. 3. Possible seizure activity, resolved. 4. Sepsis, present on admission, resolved. 5. Possible COPD exacerbation. Present on admission. Improved. 6. Chronic Atrial fibrillation, stable. 7. Hypertension, chronic, stable. 8 MAYA, improved. 9. Chronic pain syndrome on narcotics. Stable. 10. Hyperkalemia, acute, present on admission. Resolved. 11. Dysphagia, chronic. Active. Consultations Dr. Page (Pulmonology), Dr. Peña (Palliative Care), and Dr. Bennett (ID) Procedures XRay, CTs & MRIs X-RAY CHEST ONE VIEW, PORTABLE 07/12 IMPRESSION: Diffuse scarring/interstitial disease. No acute disease Dictated by: Jason Ann M.D. on 07/12/2016 at 17:42 Approved by: Jason Ann M.D. on 07/12/2016 at 17:44 PROCEDURE: CT ANGIO CHEST PULMONARY EMBOLISM IMPRESSION: 1. No acute pulmonary embolus. 2. Dense consolidation within the dependent lungs bilaterally suspicious for infection or aspiration. Approved by: Anai Lucas M.D. on 07/16/2016 at 9:24 Cardiac Echo Impression Echocardiogram Report Interpretation Summary The left ventricle is normal in size. The ejection fraction is estimated to be 50-55%. There is apical hypokinesis. The right ventricular systolic pressure is estimated at 54 mmHg assuming a right atrial pressure of 15 mm Hg. Compared to the prior echo exam, there has been an increase in the severity of pulmonary hypertension. Electronically signed by: Pranav Snow on Reading Physician:07/13/2016 10:45 AM Invasive Procedures Intubation Other Diagnostics PROCEDURE: US VENOUS LEG DUPLEX BILATERAL IMPRESSION: No evidence for deep venous thrombosis is found in the right lower extremity with this duplex venous Doppler study. No evidence for deep venous thrombosis is found in the left lower extremity with this duplex venous Doppler study. Approved by: Fito Hurd M.D. on 07/15/2016 at 17:52 DateTimeAnalyzed 04:41:00 -_ pH ____7.497 - 7.350 7.450 pCO2 ___39.1__ -mmHg 35.0 45.0 pO2 ___90.7__ -mmHg 69.0 116 HCO3- ___30.1__ -mmol/L 22.0 26.0 ABE ____6.7__ -mmol/L -2.0 2.0 tHb ___12.7__ -g/dL O2Hb ___95.7__ -% COHb ____1.1__ -% MetHb ____0.9__ -% sO2 ___97.7__ -% 25.0 FIO2 ___50.0__ -% PEEP ____8.0__ -cmH2O Set_RR ___14.0__ -b/min Vt __550.0__ -L Drawn By MM - Date/Time Notified____ 04:48:00 -_ Spontaneous_RR ___14.0__ -b/min Oxygen Device 1 VENTILATOR - Notified By MM - Notified Whom RN - B 756 -mmHg tO2 ___17.2__ -Vol% Ag test N/A - Brief History Per H&P: "71 year old male with Coronary artery disease, chronic diastolic heart failure , COPD, hyperlipidemia, and Hypertension who presents to [facility] emergency department complaining of persistent shortness of breathe Duration has been 4-5 months of worsening shortness of breath and lower extremity swelling, severely worsening over the past week. Associated symptom include headache. Patient denies chest pain, cough, rhinorrhea, fever and chills. Typically the patient uses a CPAP at night. Previously on home O2. He reports compliance with medications. Patient was recently hospitalized 03/12-03/20 due to Diastolic heart failure with restrictive cardiomyopathy. Patient has pacemaker placed at that time. Case discussed with Dr Colton Ahn, Patient given Lasix IV. Plan to admit for further diuretic therapy" On 07/15, EMMA FINE was called after the patient became dyspneic and tachypneic with O2 saturations dropped into the mid 80s after using the restroom. Patient underwent a grand mal seizure per nursing and was intubated by the night resident. Patient was moved to the CCU and was post ictal. This morning central venous access was obtained and arterial line was placed. Patient is able to maintain his blood pressure but continues to have questionable seizure activity. CTA was ordered but patient has a contrast allergy and is undergoing pre-contrast treatment. EEG was also ordered. He was extubated on 07/17. Hospital Course 71 year old male with Coronary artery disease, chronic diastolic heart failure, COPD, hyperlipidemia, and Hypertension who presents to [facility] emergency department complaining of persistent shortness of breathe #. Acute on Chronic Hypoxemic and Hypercapnic Respiratory Failure requiring vent support. Present on admission. Improving. - Etiology likely multifactorial with HCAP, or CHF but the hypercapnea could be due to COPD exacerbation. CT scan shows bilateral aspiration pneumonia. CT angiogram PE did not show an acute pulmonary embolism. - Patient was intubated 07/15 - 07/17. Extubated 07/17. - At discharge, patient was on NC at 2L during the day. Home CPAP during sleep. - Patient should be on honey thick diet per speech therapy. He is at high risk for aspiration. Will follow up with [facility] . - Continue PT as outpatient. - Attempted to call Dr. Garland (patient's manual training teacher), but he was not in the office until next Tuesday. Patient has an appointment with him on Tuesday. #. Acute on chronic diastolic congestive heart failure exacerbation. Present on admission. Active. - Patient has Restrictive Cardiomyopathy. Noted increased leg edema and BNP 2888. History of CAD. Repeat echocardiography showed EF 50-55% and increase in severity of pulmonary hypertension. Serial troponins negative. - Patient was on Lasix 60mg PO TID and Aldactone 25mg daily at home per [employer]. He reports uncontrolled LE edema despite being on the high dose of Lasix. - Continue Aldactone 25 mg daily. - Furosemide 60mg IV was stopped on 07/19 due to increased BUN and patient does not appear to be fluid overload at this time. Called the patient's clinical data research (Dr. Barnes) and he was ok with switching to Torsemide. Patient was sent home with Torsemide 20mg BID. - CHF clinic referral at discharge. #. Possible seizure activity, resolved. - Possible seizure like activity seen on 07/15/16 with loss of consciousness and flexion of both arms. Possibly secondary to hypoxia. He does not have an underlying seizure disorder. Lactic acid and CK within normal limits. EEG did not show seizure activity. CT brain without contrast showed no intracranial hemorrhage - Patient was on Keppra IV 500 mg BID, switched to PO after extubation, and discontinued on discharge. #. Sepsis, present on admission, resolved. - Met criteria with respiratory rate [address] scan is suspicious for bilateral aspiration pneumonia and patient had thick sputum tinged with blood through suction. MRSA screen positive - Questionable pneumonia, but was started on broad spectrum meropenem and vancomycin due to patient's medication allergies. Patient had 6 days of antibiotics. - Procalcitonin level has been less than 0.25, with the most recent one of 0.08 on 07/18. - Suspect that the chest x-ray infiltrates we are likely due to atelectasis rather than true pulmonary infection. Both antibiotics were discontinued on 07/21. #. Possible COPD exacerbation. Present on admission. - Pt has hx of COPD, 45 pack year history. - Continue QVar as needed - He was on Solu Medrol 30 mg BID, on a taper. Discharge on Prednisone 20mg tomorrow and 3 more days of 10mg. #. Chronic Atrial fibrillation, stable. - Was not on any anticoagulation. Rate controlled. Per discussion with patient, he is allergic to warfarin and other anticoagulants were not tried yet. - Patient's afib has been rate controlled thus telemetry was discontinued on 07/19. - Metoprolol 50mg once daily. - Heparin subcutaneous q8h during the hospital stay. He was given a coupon and prescription for Eliquis for 1 month. PCP can switch him to a different anticoagulation at follow up visit. #. Hypertension, chronic. -Resume metoprolol and Imdur. Stop Hydralazine given controlled BP. -Restarted home spironolactone on 07/18. # MAYA, resolved. -Cr 0.74, BUN 27 on discharge. -Likely due to overdiuresis. #. Chronic pain syndrome on narcotics - Patient was on fentanyl PRN in the hospital. - Continue PO home meds (Tramadol and Gabapentin) on discharge. #. Hyperkalemia, acute, present on admission. Resolved. - Resume spironolactone but stop home potassium chloride. - Will need BMP and CBC with diff in 1 week. #. Dysphagia, chronic. Active. - Barium swallow showed Laryngeal penetration on multiple occasions. - Patient did not do well with the swallowing exercise. - He was recommended to go to a SNF, but was adamant about going home. Disposition: Given his fragilely compensated health and poor social support, patient was highly recommended to be discharged to a SNF, but he refused. Patient would like to go home with home health. He should have PT, OT, ST, and social media sr strategy manager as outpatient. Patient is high risk for readmission. Exam Vital Signs (Last) Date Time Temp Pulse Resp B/P Pulse Ox O2 Delivery O2 Flow Rate FiO2 07/21/16 15:37 36.6 74 18 130/76 98 Nasal Cannula 2.50 07/18/16 09:25 45 Exam General: Alert, Cooperative, No Acute Distress Head: Normocephalic, atraumatic. 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 Eyes: EOMI. Anicteric sclerae. Mouth: Mouth Normal, Mucous Membranes Dry. Neck: Neck supple with full range of motion. Central line in place with dry blood. Chest & Lungs: Diffuse crackles at the bilateral bases. No wheezing noted. Cardiovascular: Irregularly irregular, Normal S1, Normal S2, No Murmurs/Rubs/ Gallops Abdomen: Soft. Non-tender, Non-distended, No masses, Normoactive bowel tones. Musculoskeletal: Normal Range of Motion Extremities: Trace pitting lower extremity edema bilat Neurological: Grossly Neurologically Intact, Normal Speech. Test 07/12/16 16:30 07/12/16 17:46 07/13/16 03:30 07/13/16 19:00 Prothrombin Time 10.8sec (8.1-12.5) Prothromb Time International Ratio 1.01ratio Hemoglobin A1c 6.0% (4.8-5.6) Urine Color Yellow (YELLOW) Urine Appearance Hazy (CLEAR,HAZY) Urine pH 6.5 (5.0-8.0) Urine Specific [place] 1.010 (1.003-1.035) Urine Protein Negativemg/dL (NEG,TRACE) Urine Glucose (UA) Negativemg/dL (NEGATIVE) Urine Ketones Negativemg/dL (NEGATIVE) Urine Occult Blood Negative (NEGATIVE) Urine Nitrite Negative (NEGATIVE) Urine Bilirubin Negative (NEGATIVE) Urine Urobilinogen Normalmg/dL (NORMAL) Urine Leukocyte Esterase Negative (NEGATIVE) Urine RBC 0-2/hpf (0-2) Urine WBC 0-5/hpf (0-5) Urine Epithelial Cells None/hpf (NONE-MOD) Urine Crystals None seen (NONE SEEN) Urine Bacteria None/hpf (NONE-FEW) Urine Hyaline Casts None/lpf (NONE) Urine Granular Casts None seen (NONE SEEN) Urine Waxy Casts None seen (NONE SEEN) Urine Red Blood Cell Casts None seen (NONE SEEN) Urine White Blood Cell Casts None seen (NONE SEEN) Urine Mucus None seen (None Seen) Urine Trichomonas None seen (NONE SEEN) Urine Yeast None (NONE SEEN) Urinalysis Comment None Urine Culture Reflexed Not indicated Thyroid Stimulating Hormone (TSH) 0.722uIU/mL (0.450-4.500) Phosphorus Level 3.1mg/dL (2.5-4.9) Test 07/15/16 05:42 07/15/16 05:45 07/15/16 17:36 07/16/16 11:45 D-Dimer 1.0mg/L (<0.50) Magnesium Level 2.4mg/dL (1.6-2.6) Pro-B-Type Natriuretic Peptide 4954pg/mL (0-376) Lactic Acid Level 1.8mmol/L (0.4-2.0) Total Creatine Kinase 113U/L (21-232) Hold [place] Top Tube Received (Received) Troponin T < 0.010ug/L (0.0-0.011) Hold [place] Top Tube Received (Received) Test 07/16/16 15:45 07/18/16 03:15 07/19/16 04:20 07/20/16 10:50 Activated Partial Thromboplast Time 53.2sec (22.8-33.0) Procalcitonin 0.08ng/mL (0.00-0.08) Band Neutrophils % 0% (1-5) Vancomycin Level Trough 16.7mcg/mL Test 07/21/16 03:15 White Blood Count 14.2th/mm3 (3.8-10.1) Red Blood Count 4.85mil/mm3 (4.40-5.80) Hemoglobin 14.1g/dL (13.8-17.2) Hematocrit 44.2% (41.0-50.0) Mean Corpuscular Volume 91.1fL (81-100) Mean Corpuscular Hemoglobin 29.1pg (27.0-35.0) Mean Corpuscular Hemoglobin Concent 31.9% (32.0-37.0) Red Cell Distribution Width 14.9% (12.3-15.4) Platelet Count 199bil/L (150-400) Neutrophils (%) (Auto) 89.8% (40-74) Lymphocytes (%) (Auto) 4.6% (14-46) Monocytes (%) (Auto) 5.1% (4-12) Eosinophils (%) (Auto) 0% (0-5) Basophils (%) (Auto) 0.1% (0-3) Sodium Level 139mEq/L (134-144) Potassium Level 4.8mEq/L (3.5-5.2) Chloride Level 100mEq/L (97-108) Carbon Dioxide Level 30mmol/L (18-29) Blood Urea Nitrogen 27mg/dL (8-27) Creatinine 0.74mg/dL (0.76-1.27) Estimat Glomerular Filtration Rate 110mL/min (>59) Glucose Level 155mg/dL (60-99) Calcium Level 9.0mg/dL (8.5-10.1) Total Bilirubin 0.7mg/dL (0.0-1.2) Aspartate Amino Transf (AST/SGOT) 17U/L (0-50) Alanine Aminotransferase (ALT/SGPT) 118U/L (0-44) Alkaline Phosphatase 49U/L (25-160) Total Protein 5.8g/dL (6.4-8.4) Albumin 3.5g/dL (3.4-5.0) Microbiology Results Negative Blood culture. Positive MRSA from Sputum culture, but likely to be a false positive, Discharge Medications Discharge Medications Albuterol Sulfate (Ventolin HFA Inhaler) 200 Puff/18 Gm Inhaler 2 PUFFS INH TID (Reported) Apixaban (Eliquis) 5 Mg Tablet 5 MG PO BID Prescribed by: DILIA MENDEZ DO Beclomethasone Dipropionate (Qvar) 8.7 Gm Aer.w.adap 1 PUFF IH BID (Reported) 40mcg strength Cholecalciferol (Vitamin D3) (Vitamin D3) 2,000 Unit Capsule 2,000 UNIT PO DAILY (Reported) Gabapentin (Gabapentin) 300 Mg Capsule 300 MG PO TID (Reported) Isosorbide MN ER (Isosorbide MN ER) 30 Mg Tab.er.24h 30 MG PO DAILY (Reported) Levocetirizine Dihydrochloride (Levocetirizine Dihydrochloride) 5 Mg Tablet 5 MG PO HS (Reported) Magnesium Oxide (Magnesium) 400 Mg Capsule 400 MG PO DAILY (Reported) Metoprolol Succinate ER (Metoprolol Succinate ER) 50 Mg Tab.er.24h 50 MG PO DAILY Prescribed by: DILIA MENDEZ DO Multivit-Min/FA/Lycopen/Lutein (Centrum Silver Men Tablet) 300 Mcg-600 Mcg-300 Mcg Tablet 1 EACH PO DAILY (Reported) Prednisone (PredniSONE) 10 Mg Tablet 10 MG PO DAILY Prescribed by: DILIA MENDEZ DO Spironolactone (Aldactone) 25 Mg Tablet 25 MG PO DAILY (Reported) Torsemide (Demadex) 20 Mg Tablet 20 MG PO BIDWM Prescribed by: DILIA MENDEZ DO Trazodone (Trazodone) 100 Mg Tablet 100 MG PO HS (Reported) As needed Acetaminophen (Tylenol Arthritis) 650 Mg Tablet.er 650 MG PO Q6H PRN PRN arthritis (Reported) Docusate Sodium (Colace) 100 Mg Capsule 200 MG PO DAILY PRN PRN For Constipation Prescribed by: MARTIN BRADSHAW DO Nitroglycerin SL (Nitroglycerin SL) 0.4 Mg Tab.subl 0.4 MG SL Q5MIN PRN PRN For Chest Pain (Reported) Polyethylene Glycol 3350 (Miralax) 17 Gm Powd.pack 17 GM PO DAILY PRN PRN For Constipation (Reported) Tramadol (Tramadol) 50 Mg Tablet 50 MG PO Q6H PRN PRN For Pain (Reported) Additional med instructions We made a few changes to your medication list: - Please stop taking the Lasix and start taking the Torsemide 20mg as directed. - We decreased the Metoprolol from 100mg to 50mg daily. - Stop the Hydralazine since your BP has been under control without it. - Take 2 tablets of Prednisone 10mg tomorrow, then decrease to 1 tablet daily until finished. - Stop taking the Potassium. - We gave you a coupon for a-month trial of Eliquis. You can bring the coupon to the pharmacy to get your medication. Please follow up with your PCP to switch you to a different anticoagulation (blood thinner) medication before you are out of the Eliquis. Followup Plan Disposition: Home with home health. Follow-up plan - You need to follow up with your PCP (Dr. Hu) in 1 week. We will help you make an appointment before the discharge today. - Follow up with your manual training teacher (Dr. Garland) on Friday 07/28. You have this appointment already. - Follow up with your clinical data research (Dr. Barnes) in 2 weeks. - You need home health PT, OT, ST, and social media sr strategy manager follow up. Discharge Diet: Heart Healthy Discharge Activity: Home Health Phyical Therapy Patient Instructions - If you experience any worsening symptoms, such as short of breath, chest pain , weakness, change in mental status, headache, nausea, or vomiting, please go to the ER. - If you have a fall at home, you also need to go to the ER. You are qualified for senior care for rehabilitation, but you declined to go. Please be careful while ambulating. - Take your medications as directed. - Follow the Speech therapist's dietary advices. You need to be on a honey- thick diet until told other tucker by the home health ST. - Follow up with home health ST, OT, PT, and Supervisor Ovens. - You need to have a CMP and CBC with diff in 1 week. Follow-up Provider: Broderick Hu MD Follow-up with PCP in: 1 week Provider: Barak Garland MD Follow-up in: 1 week Time spent Greater than 30 minutes was spent in preparation of discharge with greater than 50% of that time dedicated to patient counseling and coordination of care. . Attending Statement The patient was seen and examined together with Dr. Mendez on 07/21/2016 and I agree with the history, exam and plan as outlined in the note above. . copies to: Lucas Barnes MD; Broderick Hu MD; Barak Garland MD, Ngochanh H DO Jul 21, 2016 19:37 Tolu Cardoza MD Jul 22, 2016 07:39
--- NOTE | 2016-07-21 19:53 | NUR ---
Discharge of patient Recommended several times that patient should go to SNF. However pt refusing to go to group home and stating will discharge home instead. Awaited till 1900 for pt's DPOA to pick him up however DPOA unable to make it at that time. Pt stating will call a taxi. Reviewed discharge instructions with patient. Patient verbalized understanding. Patient awaiting taxi cab for ride home. IJ and Telemetry previously discontinued. Discharge paper work done. Report given to oncoming RN for discharge instructions. Oncoming RN called [facility]" for transport. Pt waiting for transport at this time.
[2016-07-21 19:57] VITALS: BP 125/72; PULSE 92; RESP 22; O2SAT 96
--- NOTE | 2016-07-21 20:17 | NUR ---
discharge note pt was DCd by day RN all instructions gone over by Yoana Hoffman RN, IJ dcd by IVT earlier, gave pt his HS Pepcid but unable to give Solu-Medrol IV r/t no IV access, pt denies any pain or SOB, pt on RA will put his home O2 on when he gets home, called [facility] and wheel-chaired pt out to cab with no problems, pt is self pay per him, all belongings take with pt.
--- NOTE | 2016-07-23 12:43 | NUR ---
Palliative care note D/A: Dr. Sutton requests that DPOA/advance directives be sent to Broderick Hu MD office. This is pt PCP. Call to office and discuss with Crystal who notes that fax number is [phone]. DPOA- note that pt has identified Yao Estevez as primary DPOA. He can be reached at [phone]. As secondary DPOA, pt has identified Efe Johnson at [phone]. On his health care directive, pt has checked that if he is found to be terminal or in a permanent unconscious condition, he would want nutrition and hydration to be withdrawn or withheld. On his POLST-he chose [facility] with limited medical interventions and no medically assisted nutrition via tube. POLST signed and dated on 07/19/16, as were the DPOA and advance directives. P: No further need for PC intervention at this time. Char AQUINO, CCM
--- NOTE | 2016-07-30 09:20 | NUR ---
Palliative care note D/A: Post discharge follow up phone call made to pt. He notes that he is doing very well. Appreciates having his information sent to his PCP office. Affirms that Pilar WILDER is working with him and that is going well. He notes that there are no further means in which PC can be of assistance with him. P: No further need for PC follow up. Char AQUINO, CCM
[2016-08-09] MEDS ORDERED: IPRA3AMP IH (11:08)
[2016-08-09] MEDS ORDERED: WARF5TAB7 PO (11:08)
[2016-08-09] MEDS ORDERED: MAGN400T4 PO (11:08)
== END 2016-07-21 20:15 | disposition home health service (06) | DRG 291 ==
LOC: SED 15:34 → MPC 20:11 → PCC 21:01 → CCU 07-15 05:50 → PCC 07-18 11:24
PROVIDERS: ADMIT Hospitalist; ATTEND Hospitalist
PROC: 4A033R1 Measurement of Arterial Saturation, Peripheral, Percutaneous Approach (ICD-10-PCS; 2016-07-12)
PROC: 5A1945Z Respiratory Ventilation, 24-96 Consecutive Hours (ICD-10-PCS; principal; 2016-07-15)
PROC: 0BH17EZ Insertion of Endotracheal Airway into Trachea, Via Natural or Artificial Opening (ICD-10-PCS; 2016-07-15)
PROC: 03HY32Z Insertion of Monitoring Device into Upper Artery, Percutaneous Approach (ICD-10-PCS; 2016-07-15)
DX: I50.33 Acute on chronic diastolic (congestive) heart failure (principal); J96.22 Acute and chronic respiratory failure with hypercapnia; J96.21 Acute and chronic respiratory failure with hypoxia; J69.0 Pneumonitis due to inhalation of food and vomit; J44.1 Chronic obstructive pulmonary disease with (acute) exacerbation; I42.5 Other restrictive cardiomyopathy; F11.20 Opioid dependence, uncomplicated; N17.9 Acute kidney failure, unspecified; I25.10 Atherosclerotic heart disease of native coronary artery without angina pectoris; E78.5 Hyperlipidemia, unspecified; I10 Essential (primary) hypertension; Z79.01 Long term (current) use of anticoagulants; Z87.891 Personal history of nicotine dependence; I48.2 Chronic atrial fibrillation; K21.9 Gastro-esophageal reflux disease without esophagitis; G89.4 Chronic pain syndrome; N14.1 Nephropathy induced by other drugs, medicaments and biological substances; T50.1X5A Adverse effect of loop [high-ceiling] diuretics, initial encounter; R56.9 Unspecified convulsions; Z51.5 Encounter for palliative care; B95.61 Methicillin susceptible Staphylococcus aureus infection as the cause of diseases classified elsewhere